=== PATIENT | female | born 1965 | race Caucasian/White ===

== ENCOUNTER → 2019-07-13 07:47 | Outpatient (BNVA) | payer MEDICARE, MEDICAID, SELFPAY | PROVIDERS: Family Provider Family Medicine; Visit Provider Nurse Practitioner | DX: F20.89 Other schizophrenia (principal); F70 Mild intellectual disabilities | CPT/HCPCS: 99213 ==

== ENCOUNTER → 2020-01-21 08:41 | Outpatient (BNVA) | payer MEDICARE, MEDICAID, SELFPAY | PROVIDERS: Family Provider Family Medicine; Visit Provider Nurse Practitioner | DX: F20.89 Other schizophrenia (principal); F70 Mild intellectual disabilities | CPT/HCPCS: 99214 ==

== ENCOUNTER → 2020-04-22 09:06 | Outpatient (BNVA) | payer MEDICARE, MEDICAID, SELFPAY | PROVIDERS: Family Provider Family Medicine; Visit Provider Nurse Practitioner | DX: F70 Mild intellectual disabilities (principal); F20.89 Other schizophrenia; Z79.899 Other long term (current) drug therapy | CPT/HCPCS: 99214 ==

== ENCOUNTER → 2020-10-14 09:49 | Outpatient (BNVA) | payer MEDICARE, MEDICAID, SELFPAY | PROVIDERS: Family Provider Family Medicine; Visit Provider Nurse Practitioner | DX: F20.89 Other schizophrenia (principal); F70 Mild intellectual disabilities; Z79.899 Other long term (current) drug therapy | CPT/HCPCS: 80061; 83036; 99214 ==

== ENCOUNTER → 2021-04-13 10:16 | Outpatient (BNVA) | payer MEDICARE, MEDICAID, SELFPAY | PROVIDERS: Family Provider Family Medicine; Visit Provider Nurse Practitioner | DX: F20.89 Other schizophrenia (principal); F70 Mild intellectual disabilities | CPT/HCPCS: 99214 ==

== ENCOUNTER → 2021-07-13 09:26 | Outpatient (BNVA) | payer MEDICARE, MEDICAID, SELFPAY | PROVIDERS: Family Provider Family Medicine; Visit Provider Nurse Practitioner | DX: F20.89 Other schizophrenia (principal); F70 Mild intellectual disabilities | CPT/HCPCS: 99214 ==

== ENCOUNTER → 2021-12-15 11:09 | Outpatient (BNVA) | payer MEDICARE, MEDICAID, OTHER, SELFPAY | PROVIDERS: Family Provider Family Medicine; Visit Provider Nurse Practitioner | DX: Z79.899 Other long term (current) drug therapy (principal); F70 Mild intellectual disabilities; F20.89 Other schizophrenia | CPT/HCPCS: 80061; 83036 ==

== ENCOUNTER 2022-01-17 14:38 | Outpatient (CLI) | payer MEDICARE, MEDICAID, SELFPAY ==
--- NOTE | 2022-01-17 14:52 | MM_ITS ---
WS: [id number] Bilateral screening 3D tomosynthesis digital mammogram, 01/17/2022 Clinical Data: SCREENING Comparison: 09/06/2020, 09/02/2019, 05/29/2018, 04/11/2017, 04/05/2016, 11/09/2014, 10/20/2013, 09/23/2012, 09/18, 09/02/2009. 09/16/2007. Findings: The breast parenchymal pattern shows ingenious density. No spiculated masses or clustered calcificati ons are seen. There are no secondary signs of carcinoma. There are benign nodules in the lateral aspe ct of the left breast which have not changed. There are lymph nodes in both axilla. MM/[id number] Impression: 1. Negative bilateral mammogram unchanged. 2. Recommend annual screening mammograms. BIRADS: 2-Benign FOLLOW UP: 1 Year Follow-up The CAD weight yardage checker was used.
== END 2022-01-17 14:39 | disposition home or self-care (01) ==
LOC: RAD 14:40
PROVIDERS: PCP Nurse Practitioner Family; Visit Provider Nurse Practitioner Family
DX: Z12.31 Encounter for screening mammogram for malignant neoplasm of breast (principal)
CPT/HCPCS: 77063; 77067

== ENCOUNTER → 2022-11-28 13:53 | Outpatient (BNVA) | payer MEDICARE, MEDICAID, SELFPAY | PROVIDERS: PCP Family Medicine; Visit Provider Podiatrist Foot & Ankle Surgery | DX: M72.2 Plantar fascial fibromatosis | CPT/HCPCS: 77077; 99203 ==

== ENCOUNTER → 2022-12-19 10:27 | Outpatient (BNVA) | payer MEDICARE, OTHER, SELFPAY | PROVIDERS: PCP Family Medicine; Visit Provider Nurse Practitioner | DX: Z79.899 Other long term (current) drug therapy (principal); F20.89 Other schizophrenia; F70 Mild intellectual disabilities | CPT/HCPCS: 80061; 83036 ==

== ENCOUNTER 2023-01-30 08:21 | Outpatient (CLI) | payer MEDICARE, MEDICAID, SELFPAY ==
--- NOTE | 2023-01-30 08:47 | MM_ITS ---
WS: [id number] BILATERAL SCREENING DIGITAL TOMOSYNTHESIS MAMMOGRAM WITH CAD HISTORY: SCREENING COMPARISON: 01/17/2022 and 09/06/2020 and 09/02/2019 Bilateral CC and MLO views with tomosynthesis and synthetic mammography submitted. Computer aided det ection analyzed. Breast composition: The breasts are heterogeneously dense, which may obscure small masses. No suspici ous masses, microcalcifications or architectural distortion. Bilateral asymmetries and calcifications are stable over multiple prior years. IMPRESSION: MM/[id number] BI-RADS: 2-Benign FOLLOW UP: 1 Year Follow-up
== END 2023-01-30 08:22 | disposition home or self-care (01) ==
LOC: RAD 08:21
PROVIDERS: PCP Family Medicine; Visit Provider Family Medicine
DX: M72.2 Plantar fascial fibromatosis (principal); Z12.31 Encounter for screening mammogram for malignant neoplasm of breast; M79.672 Pain in left foot; M79.671 Pain in right foot
CPT/HCPCS: 77063; 77067; 99213

== ENCOUNTER → 2023-10-09 11:49 | Outpatient (BNVA) | payer MEDICARE, OTHER, SELFPAY | PROVIDERS: PCP Family Medicine; Visit Provider Nurse Practitioner | DX: Z79.899 Other long term (current) drug therapy (principal) | CPT/HCPCS: 80061; 83036 ==

== ENCOUNTER 2024-05-18 10:13 | Emergency (ER) | payer MEDICARE, MEDICAID, SELFPAY ==
[2024-05-18 10:25] VITALS: BP 116/71; PULSE 77; RESP 18; TEMP 36.7; O2SAT 93; BMI 52.1
--- NOTE | 2024-05-18 12:07 | W.ED.EXTPRO ---
HPI - Extremity Problem General: Chief complaint: Extremity Problem,Nontraumatic Stated complaint: left arm pain Time Seen by Provider: 05/18/24 11:20 Source: patient and EMS Mode of arrival: wheelchair Limitations: no limitations History of Present Illness: Patient is a 59-year-old female who presents today complaining of numbness to the fingers of her left hand. Patient reports that she woke up this morning with some pain to her left elbow-no known injury/trauma-and that her fingers felt numb. She has not noticed any weakness. No neck pain. Patient does not note anything making her symptoms better or worse. She states that the numbness/tingling to the finger has now mostly resolved and she no longer has any elbow pain. MD Complaint: other (left fingers numb and tingling ) Onset (ago): hour(s) Pain Consistency: now resolved Location: left and upper extremity Radiation: none Relieving factors: nothing Exacerbating factors: nothing Associated symptoms: Reports no associated symptoms; Deny chest pain or fever(s) Related Data Home Medications ?Medication ?Instructions ?Recorded ?Confirmed cholecalciferol (vitamin D3) 50 50 mcg PO DAILY 07/13/19 02/26/24 mcg (2,000 unit) capsule lovastatin 40 mg tablet 40 mg PO DAILY 07/13/19 02/26/24 cetirizine 10 mg tablet ea PO 11/28/22 02/26/24 nystatin 100,000 unit/gram topical g topical 11/28/22 02/26/24 cream omeprazole 40 mg capsule,delayed ea PO 11/28/22 02/26/24 release triamcinolone acetonide 0.1 % g topical 11/28/22 02/26/24 topical cream Previous Rx's ?Medication ?Instructions ?Recorded propranolol 20 mg tablet 20 mg PO BID #180 tabs 01/03/24 aripiprazole 10 mg tablet (Abilify) 10 mg PO DAILY #90 tabs 02/26/24 prazosin 2 mg capsule 2 mg PO .HS #90 caps 02/26/24 venlafaxine 150 mg 150 mg PO DAILY #90 caps 02/26/24 capsule,extended release 24 hr Allergies Allergy/AdvReac Type Severity Reaction Status Date / Time menthol (From MoisésCurverider Hot) Allergy Rash Verified 05/18/24 10:28 methyl salicylate (From Icy Allergy Rash Verified 05/18/24 10:28 Hot) Penicillins Allergy Diarrhea, Verified 05/18/24 10:28 nausea, vomiting Sulfa (Sulfonamide Allergy Rash Verified 05/18/24 10:28 Antibiotics) Review of Systems Const: Denies: fever(s) Card: Denies: chest pain Resp: Denies: dyspnea GI: Denies: nausea or vomiting Musc: Reports: joint pain (L elbow this AM-resolved now); Denies: neck pain, back pain, extremity pain, extremity swelling, joint swelling, joint redness, joint warmth, joint stiffness, limited range of motion, muscle cramps or muscle weakness Neuro: Reports: numbness in extremities (L fingers-resolved now); Denies: headache(s) or weakness in extremities PFSH ED PFSH: Medical History Depression On combination antipsychotic drug therapy Psychiatric care Other schizophrenia Mild intellectual disabilities Family History Sister Thyroid disease Denies family history of Colon cancer Ovarian cancer Diabetes Clotting disorder Heart disease Hyperlipidemia Breast cancer Anesthesia complication Bleeding disorder Hypertension Uterine cancer Stroke Social History Smoking and tobacco/nicotine status: never used tobacco/nicotine Alcohol intake: never Substance/Drug Use: never Physical Exam Const: COMMON NORMALS: no acute distress, no limitations, alert and well nourished GENERAL APPEARANCE: cooperative NUTRITIONAL APPEARANCE: obese HENMT: FACE & SINUS: normal facial exam and face symmetric Neck/C-Spine: COMMON NORMALS: full ROM GENERAL: Yes normal visual inspection CERVICAL SPINE: No pain with cervical ROM, No Cervical spine tenderness and No Paracervical muscle tenderness Resp: COMMON NORMALS: normal respiratory effort and clear to auscultation bilaterally AUSCULTATION: clear to auscultation bilaterally Cardio: COMMON NORMALS: regular rate and regular rhythm RATE: regular rate RHYTHM: regular rhythm Back/Pelvis: COMMON NORMALS: thoracic and lumbar spine normal to inspection and no thoracic nor lumbar tenderness Extremity: COMMON NORMALS: normal to inspection, full ROM, capillary refill normal, no joint enlargement, no clubbing, cyanosis or edema, no calf tenderness and no pedal edema GENERAL: Yes normal exam except as noted OTHER: pt has full painless ROM of neck, L shoulder, L elbow, L wrist; L UE with no edema or color/temp changes; sensation is intact throughout extremity even to digits-she states her numbness has resolved; normal motor strength to extremity Neuro: COMMON NORMALS: moves all extremities, no focal motor deficits and no sensory deficits noted SENSORIUM/ORIENTATION: Yes alert Course Vital Signs: Vital signs: Vital Signs Temperature 98.1 F 05/18/24 10:25 Pulse Rate 77 05/18/24 10:25 Respiratory Rate 18 05/18/24 10:25 Blood Pressure 116/71 05/18/24 10:25 Pulse Oximetry 93 05/18/24 10:25 Oxygen Delivery Me thod Room Air 05/18/24 10:25 MDM - Extremity (Nontraumatic) Medical Decision Making Patient is a 59-year-old female who presented to the ED today complaining of paresthesias involving her left fingers that she noticed when she awoke from sleep this morning. She was also having some pain at that time around her left elbow. At time of my initial examination of patient, she tells both of these have subsided. She does not have any acute neurologic deficits during exam. NIH 0. I do not feel any formable emergent lab work or imaging would ultimately change consultant will be beneficial. She does have PCP appointment scheduled for later this month. She can follow-up with primary care. Return to ED precautions discussed. Suspect paresthesias were most likely due to elbow positioning while asleep. Medical Records I reviewed the patient's medical records. No radiology studies performed this visit Discharge Plan Discharge Patient Disposition: Home Clinical Impression: Paresthesias in left hand Condition: Stable Prescriptions: No Action lovastatin 40 mg tablet 40 mg PO DAILY cholecalciferol (vitamin D3) 50 mcg (2,000 unit) capsule 50 mcg PO DAILY triamcinolone acetonide 0.1 % cream topical nystatin 100,000 unit/gram cream topical omeprazole 40 mg capsule,delayed release(DR/EC) PO cetirizine 10 mg tablet PO prazosin 2 mg capsule 2 mg PO .HS Qty: 90 1RF venlafaxine 150 mg capsule,extended release 24hr 150 mg PO DAILY Qty: 90 1RF aripiprazole [Abilify] 10 mg tablet 10 mg PO DAILY Qty: 90 1RF propranolol 20 mg tablet 20 mg PO BID Qty: 180 0RF Discharge Orders: Discharge ED (Routine); Ordered 05/18/24 Ordered By: Meeta Huff Referrals: Sobeida Painter MD [Primary Care Provider] - Activity Restrictions/Additional Instructions: As we discussed, at time of arrival to the emergency department you are already having improving symptoms. No acute neurologic deficits noted. Recommend he follow-up with your primary care provider later this month as you already have a scheduled appointment. You need to return to the emergency department for onset of arm or leg weakness, continued loss of sensation, facial drooping, slurred speech, trouble ambulating, altered mental status, or any other concerns you may have. Print Language: Hungarian Coding Level of Care Code ED Hammer Repairer for Madeleine Nina
[2024-05-18 12:56] VITALS: BP 117/75; PULSE 81; O2SAT 93
== END 2024-05-18 12:57 | disposition home or self-care (01) ==
PROVIDERS: Emergency Provider Physician Assistant; PCP Family Medicine
DX: R20.2 Paresthesia of skin (principal)
CPT/HCPCS: 99283

== ENCOUNTER → 2024-05-27 11:24 | Outpatient (BNVA) | payer MEDICARE, OTHER, SELFPAY | PROVIDERS: PCP Family Medicine; Visit Provider Nurse Practitioner | DX: F20.89 Other schizophrenia (principal); F70 Mild intellectual disabilities; Z79.899 Other long term (current) drug therapy | CPT/HCPCS: 80061; 83036 ==

== ENCOUNTER 2024-08-04 17:34 | Inpatient (IN) | payer OTHER, MEDICAID, SELFPAY ==
--- OUTSIDE RECORDS SUMMARY | 2024-07-30 11:44 | XMS_ITS | Encounter Summary ---
Author Organization [facility] Address [address] [place] [address] Care Team Providers Care Electrical Mechanic Name Role Phone Henrik Kuo MD Primary Care Provider [phone] Reason for Referral * Radiology Services (Routine) - Pending Review Specialty Diagnoses / Procedures Referred By [place] Referred To Contact Radiology Diagnoses Visit for screening mammogram Procedures MAMMO 3D ANGELIQUE SCREEN BILAT W OR WO CAD CHG SCREENING MAMMOGRAPHY BI 2-VIEW BREAST INC CAD CHG SCREENING DIGITAL BREAST TOMOSYNTHESIS BI Marta Amaro FNP [address] [place] [address] Phone: tel: fax: [facility] [address] [place] [address] Phone: tel: fax: Referral ID Status Reason Start Date Expiration Date V isits Requested Visits Authorized [id number] Pending Review 01/23/2024 02/22/2025 1 1 Reason for Visit * Radiology Services (Routine) - Pending Review Specialty Diagnoses / Procedures Referred By [place] Referred To Contact Radiology Diagnoses Visit for screening mammogram Procedures MAMMO 3D ANGELIQUE SCREEN BILAT W OR WO CAD CHG SCREENING MAMMOGRAPHY BI 2-VIEW BREAST INC CAD CHG SCREENING DIGITAL BREAST TOMOSYNTHESIS BI Marta Amaro FNP [address] [place] [address] Phone: tel: fax: [facility] [address] [place] [address] Phone: tel: fax: Referral ID Status Reason Start Date Expiration Date V isits Requested Visits Authorized [id number] Pending Review 01/23/2024 02/22/2025 1 1 Encounter Details Date Type Department Care Team (Latest Contact Info) Description 07/30/2024 11:44 AM CDT - 07/30/2024 11:59 PM CDT Hospital Encounter [facility] [address] [place] [phone] Marta Amaro, MANAGER ADVERTISING [address] [place] [phone] Discharge Disposition: Home or Self Care Social History Tobacco Use Types Packs/Day Years Used Date Smoking Tobacco: Never Smokeless Tobacco: Never Alcohol Use Standard Drinks/Week Comments No 0 (1 standard drink = 0.6 oz pur e alcohol) Financial Resource Strain Answer Date R ecorded How hard is it for you to pa y for the very basics like food, housing, medical care, and heating? Patient declined 04/06/2022 Food Insecurity Answer Date Recorded In the past 12 months, have you worried that your food would run out before you had money to buy more? Patient declined 2022 In the past 12 months, did y ou run out of food and didn't have money to buy more? Patient declined 04/06/2022 Transportation Needs Answer Date Record ed In the past 12 months, has l ack of transportation kept you from medical appointments or from getting medications? Patient declined 04/06/2022 Lack of Transportation (Non-Medical) Not on file 04/06/2022 Feeling Safe Answer Date Recorded Are you in a relationship wi th someone who hurts you emotionally and/or physically? No 06/13/2024 Comments No Sex and Gender Information Value Date Recorded Sex Assigned at Not on file Legal Sex Female 5:09 PM FACILITY ENGINEER Gender Identity Not on file Sexual Orientation Not on file documented as of this encounter Medications at Time of Discharge tolterodine (DETROL LA) 2 mg Extended Release 24 hour capsuleIndications: Urinary incontinence, unspecified type Take 1 Capsule (2 mg) by mouth daily. 100 Capsule 1 5 lidocaine (LIDODERM) 5 % Adhesive Patch, MedicatedIndication s:Arthritis of right knee Apply 2 Patches to affected area every 24 hours. 30 Patch 2 5 diclofenac sodium (VOLTAREN) 1 % gelIndications:Arth ritis of right knee Apply 2 Grams to affected area 4 times daily. 100 Gram 2 5 acetaminophen (TYLENOL) 325 mg tabletIndications:A rthritis of right knee Take 2 Tablets (650 mg) by mouth 3 times daily as needed for Pain, Moderate. 360 Tablet 2 5 methenamine hippurate (HIPREX) 1 gram Tablet 5 omeprazole (PriLOSEC) 40 mg Capsule, Delayed Release(E.C.)Indica tions:Gastroesophag eal reflux disease, unspecified whether esophagitis present Take 1 Capsule (40 mg) by mouth daily. 100 Capsule 3 5 ARIPiprazole (ABILIFY) 10 mg tablet Take 1 Tablet by mouth daily. 5 tirzepatide, weight loss, (Zepbound) 2.5 mg/0.5 mL Pen InjectorIndications :Morbid obesity with BMI of 50.0-59.9, adult ([facility]) Inject 2.5 mg by subcutaneous injection every 7 days. 2 mL 5 ARIPiprazole (ABILIFY) 5 mg tablet Take 5 mg by mouth daily. prazosin (MINIPRESS) 2 mg capsule TAKE 1 CAPSULE BY MOUTH ONCE EVERY NIGHT AT BEDTIME 4 atorvastatin (LIPITOR) 40 mg tabletIndications:E ncounter for wellness examination,Hyperli pidemia, unspecified hyperlipidemia type,Morbid obesity with body mass index of 40.0-49.9 ([facility]) Take 1 Tablet (40 mg) by mouth daily with supper. 100 Tablet 2 4 cetirizine (ZyrTEC) 10 mg tabletIndications:R niki and nonspecific skin eruption take 1 tablet by mouth every day 100 Tablet 3 4 clotrimazole-betame thasone (LOTRISONE) 1-0.05 % Cream Apply to affected area 2 times daily. To the vulva and groin as needed for itching 45 Gram 3 4 nystatin (MYCOSTATIN) 100,000 unit/gram CreamIndications:Ca ndida infection Apply to affected area 2 times daily. 15 Gram 1 3 triamcinolone acetonide (KENALOG) 0.1 % CreamIndications:Ra sh and nonspecific skin eruption Apply to affected area 2 times daily. 80 Gram 3 3 nystatin (NYSTOP) 100,000 unit/gram powderIndications:Y east infection Apply to affected area 2 times daily. 60 Gram 3 3 hydrOXYzine HCL (ATARAX) 25 mg tabletIndications:I tching Take 1 Tablet (25 mg) by mouth 3 times daily as needed for Itching. 30 Tablet 1 2 propranoloL (INDERAL) 20 mg tablet 1 polyethylene glycol (MIRALAX) 17 gram Powder in PacketIndications:C onstipation, unspecified constipation type Take 1 Packet (17 Grams) by mouth 2 times daily as needed for Constipation. 6 Packet 1 0 venlafaxine (EFFEXOR XR) 150 mg Extended Release 24 hour capsule Take 150 mg by mouth daily Takes with 75 mg daily . 9 Cholecalciferol, Vitamin D3, 50 mcg (2,000 unit) Capsule Take 1 Capsule by mouth daily at bedtime. 7 documented as of this encounter Plan of Treatment Upcoming Encounters Date Type Department Care Team (Late st Contact Info) Description 01/22/2025 10:00 AM FACILITY ENGINEER Office Visit [facility] [address] [place] [address] [place] [phone] Marta Amaro FNP [address] [facility] [place] [address] documented as of this encounter Procedures Procedure Name Priority Date/Time Associated Diagnosis Comments MAMMO 3D ANGELIQUE SCREEN BILAT W OR WO CAD Routine 07/30/2024 12:02 PM CDT Visit for screening mammogram documented in this encounter Results * MAMMO 3D ANGELIQUE SCREEN BILAT W OR WO CAD (07/30/2024 12:02 PM CDT) Anatomical Region Laterality Modality Breast Bilateral Mammography, Dig ital Radiography Impressions 07/31/2024 8:44 AM CDT : No mammographic evidence of malignancy. BI-RADS ASSESSMENT: 1 - Negative RECOMMENDATION: Routine annual screening mammography. Narrative 07/31/2024 8:44 AM CDT EXAM: MAMMO SCRN BILAT 3D ANGELIQUE W OR WO CAD INDICATION: Screening COMPARISON: 07/09/2023 MAMMO 3D ANGELIQUE SCREEN BILAT W OR WO CAD, 01/30/2023 MAMMO PRIOR STUDY, 01/17/2022 MAMMO PRIOR STUDY, 09/06/2020 MAMMO SCREEN BILAT W OR WO CAD, 09/02/2019 MAMMO SCREEN BILAT W OR WO CAD, 05/29/2018 MAMMO SCREEN BILAT W OR WO CAD, and 04/11/2017 MAMMO SCREEN BILAT W OR WO CAD BREAST COMPOSITION: The breasts are heterogeneously dense, which may obscure small masses. FINDINGS: RIGHT BREAST: There are no suspicious masses, calcifications, or areas of architectural distortion. LEFT BREAST: There are no suspicious masses, calcifications, or areas of architectural distortion. Marta Amaro MANAGER ADVERTISING MAMMO ORDERABLES Final Result documented in this encounter Visit Diagnoses Diagnosis Visit for screening mammogram Other screening mammogram documented in this encounter Additional Health Concerns Assessment Noted Time PHQ-9 Depression Total Score: 3 07/04/19 25 9:36 AM CDT documented as of this encounter Care Teams Electrical Mechanic Relationship Specialty Start Date End Date Henrik Kuo MD [address] [address] PCP - General Family Practice 01/23/21 documented as of this encounter
[2024-08-04 17:39] VITALS: BP 153/105; PULSE 106; RESP 18; TEMP 36.8; O2SAT 96; BMI 54.5
--- NOTE | 2024-08-04 17:39 | XRR_ITS ---
PROCEDURE INFORMATION: Exam: XR Left Foot Exam date and time: 08/04/2024 5:40 PM Age: 59 years old Clinical indication: Injury or trauma; Fall; Swelling (edema); Ankle and foot; Left; Prior surgery; Surgery date: 6+ months; Surgery type: Ankle repair TECHNIQUE: Imaging protocol: Radiologic exam of the left foot. Views: 3 or more views. COMPARISON: [place] [id number] [place]TH 11/28/2022 1:58 PM FINDINGS: Bones/joints: Comminuted intra-articular fracture involving the 2nd metatarsal base. Concerning for Lisfranc injury. Possible intra-articular fracture components of the 3rd metatarsal bone as well as the 1st metatarsal bone. There is widening of the 1st and 2nd metatarsal space. No dislocation. Plantar and posterior calcaneal spurring. Soft tissues: Diffuse soft tissue swelling. XR/XR foot LT min 3V* [id number] IMPRESSION: As above.
--- NOTE | 2024-08-04 17:39 | XRR_ITS ---
PROCEDURE INFORMATION: Exam: XR Left Ankle Exam date and time: 08/04/2024 5:40 PM Age: 59 years old Clinical indication: Pain; Ankle and foot; Left; Prior surgery; Surgery date: 6+ months; Surgery type: Ankle repair; Additional info: Injury TECHNIQUE: Imaging protocol: Radiologic exam of the left ankle. Views: 3 or more views. COMPARISON: [place] [id number] [place] 11/28/2022 1:58 PM FINDINGS: Bones/joints: Please see same-day foot radiograph for further findings regarding the midfoot. No definite acute fracture involving the hindfoot structures. Postsurgical changes related to ORIF of the distal fibula and tibia. Ankle mortise is congruent. The talar dome is intact. Posterior and plantar calcaneal spurring. No ankle joint effusion. Soft tissues: Normal. XR/XR ankle LT min 3V* [id number] IMPRESSION: As above.
--- NOTE | 2024-08-04 17:39 | XRR_ITS ---
PROCEDURE INFORMATION: Exam: XR Left Hand Exam date and time: 08/04/2024 5:40 PM Age: 59 years old Clinical indication: Injury or trauma; Fall; Swelling (edema); Hand; Left TECHNIQUE: Imaging protocol: Radiologic exam of the left hand. Views: 3 or more views. COMPARISON: No relevant prior studies available. FINDINGS: Bones/joints: No acute fracture or traumatic malalignment. Scattered interphalangeal joint degenerative changes. Soft tissues: Normal. XR/XR hand LT min 3V* [id number] IMPRESSION: As above.
--- NOTE | 2024-08-04 17:45 | W.ED.FALL ---
HPI - Fall General: Chief Complaint: Fall Stated Complaint: Fall Time Seen by Provider: 08/04/24 17:36 Source: patient and EMS Mode of arrival: EMS Limitations: no limitations History of Present Illness: 59-year-old female is here with EMS after a fall. States she fell in a [place] injured her left ring finger and left foot and ankle states she has pain she rates a 5 out of 10 denies any other injuries denies any hip or knee pain. She denies hitting her head. Associated symptoms-after fall: Denies abdominal pain, chest pain, headache(s) or neck pain Related Data Home Medications ?Medication ?Instructions ?Recorded ?Confirmed cholecalciferol (vitamin D3) 50 50 mcg PO DAILY 07/13/19 05/27/24 mcg (2,000 unit) capsule lovastatin 40 mg tablet 40 mg PO DAILY 07/13/19 05/27/24 cetirizine 10 mg tablet ea PO 11/28/22 05/27/24 nystatin 100,000 unit/gram topical g topical 11/28/22 05/27/24 cream omeprazole 40 mg capsule,delayed ea PO 11/28/22 05/27/24 release triamcinolone acetonide 0.1 % g topical 11/28/22 05/27/24 topical cream Previous Rx's ?Medication ?Instructions ?Recorded aripiprazole 10 mg tablet (Abilify) 10 mg PO DAILY #90 tabs 02/26/24 prazosin 2 mg capsule 2 mg PO .HS #90 caps 02/26/24 venlafaxine 150 mg 150 mg PO DAILY #90 caps 02/26/24 capsule,extended release 24 hr propranolol 20 mg tablet 20 mg PO BID #180 tabs 06/24/24 Allergies Allergy/AdvReac Type Severity Reaction Status Date / Time menthol (From Icy Hot) Allergy Rash Verified 05/27/24 10:59 methyl salicylate (From Icy Allergy Rash Verified 05/27/24 10:59 Hot) Penicillins Allergy Diarrhea, Verified 05/27/24 10:59 nausea, vomiting Sulfa (Sulfonamide Allergy Rash Verified 05/27/24 10:59 Antibiotics) Review of Systems Const: Denies: fever(s), chills, body aches or change in appetite ENMT: Denies: throat pain or dental pain Card: Denies: chest pain Resp: Denies: dyspnea GI: Denies: abdominal pain, nausea, vomiting or diarrhea Musc: Reports: extremity pain; Denies: neck pain or back pain Skin/Breast: Denies: rash Neuro: Denies: headache(s) PFSH ED PFSH: Medical History Depression On combination antipsychotic drug therapy Psychiatric care Other schizophrenia Mild intellectual disabilities Family History Sister Thyroid disease Denies family history of Colon cancer Ovarian cancer Diabetes Clotting disorder Heart disease Hyperlipidemia Breast cancer Anesthesia complication Bleeding disorder Hypertension Uterine cancer Stroke Social History Smoking and tobacco/nicotine status: never used tobacco/nicotine Alcohol intake: never Substance/Drug Use: never Physical Exam Const: COMMON NORMALS: no acute distress, patient oriented x3 and healthy appearing HENMT: COMMON NORMALS: normocephalic and atraumatic HEAD & SCALP: normocephalic and atraumatic Eye: COMMON NORMALS: conjunctivae normal CONJUNCTIVA: Yes conjunctivae normal Neck/C-Spine: COMMON NORMALS: full ROM and supple Chest: COMMONS NORMALS: normal inspection of the chest and normal palpation of entire chest wall Resp: COMMON NORMALS: normal respiratory effort, No retractions, No use of accessory muscles and clear to auscultation bilaterally AUSCULTATION: clear to auscultation bilaterally Cardio: COMMON NORMALS: regular rate, regular rhythm and No murmurs present (Cardio) RATE: regular rate RHYTHM: regular rhythm GI: COMMON NORMALS: Normal to inspection, nondistended, normoactive bowel sounds present, Soft to palpation, non-tender and no masses PALPATION: Yes Soft to palpation Extremity: COMMON NORMALS: full ROM NARRATIVE EXTREMITY EXAM: Tenderness and swelling noted left foot some slight tenderness to left ring finger. Neuro: COMMON NORMALS: patient oriented x3, moves all extremities and no focal motor deficits Psych: COMMON NORMALS: mental status grossly normal, Normal thought process present and cooperative THOUGHT PROCESS: Normal thought process present Skin: COMMON NORMALS: no rashes or lesions noted and no wounds GENERAL SKIN EXAM: no rashes or lesions noted Course Vital Signs: Vital signs: Vital Signs Temperature 98.2 F 08/04/24 17:39 Pulse Rate 106 H 08/04/24 17:39 Respiratory Rate 18 08/04/24 17:39 Blood Pressure 153/105 08/04/24 17:39 Pulse Oximetry 96 08/04/24 17:39 Oxygen Delivery Me thod Room Air 08/04/24 17:39 MDM - Fall Medical Decision Making Patient presents for Lisfranc fracture of her left foot patient lives home alone is not able to take care of herself I spoke to business performance specialist Long hospitalist will admit this time as she likely needs prison placement and surgery in the future Medical Records I reviewed the patient's medical records. Lab Data I reviewed the patient's lab results. 08/04/24 18:41 08/04/24 18:41 Radiology Impressions Ankle X-Ray 08/04/24 17:39 IMPRESSION: As above. Foot X-Ray 08/04/24 17:39 IMPRESSION: As above. Hand X-Ray 08/04/24 17:39 IMPRESSION: As above. Laboratory Results WBC 13.40 10^3/uL (3.29-11.43) H 08/04/24 18:41 RBC 4.62 10^6/uL (3.85-5.65) 08/04/24 18:41 Hgb 13.70 g/dL (11.27-16.99) 08/04/24 18:41 Hct 42.6 % (36-47) 08/04/24 18:41 MCV 92.2 fl (85-98) 08/04/24 18:41 MCH 29.7 pg (27-33) 08/04/24 18:41 MCHC 32.2 g/dL (30-55) 08/04/24 18:41 RDW 12.3 % (12.1-15.1) 08/04/24 18:41 Plt Count 343 10^3/cmm (157-399) 08/04/24 18:41 MPV 8.6 fL (7.4-10.4) 08/04/24 18:41 Neut % (Auto) 80.6 % 08/04/24 18:41 Lymph % (Auto) 11.8 % 08/04/24 18:41 [place] % (Auto) 6.3 % 08/04/24 18:41 Eos % (Auto) 0.7 % 08/04/24 18:41 Baso % (Auto) 0.2 % 08/04/24 18:41 Neut # (Auto) 10.80 10^3/uL (1.8-7.7) H 08/04/24 18:41 Lymph # (Auto) 1.6 10^3/uL (0.8-4.8) 08/04/24 18:41 [place] # (Auto) 0.9 10^3/uL (0.2-0.9) 08/04/24 18:41 Eos # (Auto) 0.1 10^3/uL (0.0-0.8) 08/04/24 18:41 Baso # (Auto) 0.0 10^3/uL (0.0-0.1) 08/04/24 18:41 Nucleated RBC % (auto) 0 % 08/04/24 18:41 Nucleated RBCs # 0.0 /100WBC 08/04/24 18:41 PT 12.70 SECONDS (12.1-14.9) 08/04/24 18:41 INR 0.89 (0.8-1.2) 08/04/24 18:41 Sodium 139 mmol/L (136-145) 08/04/24 18:41 Potassium 4.2 mmol/L (3.5-5.1) 08/04/24 18:41 Chloride 101 mmol/L (98-107) 08/04/24 18:41 Carbon Dioxide 25 mmol/L (22-29) 08/04/24 18:41 Anion Gap 17.2 (5-19) 08/04/24 18:41 BUN 16 mg/dL (8-23) 08/04/24 18:41 Creatinine 0.7 mg/dL (0.5-0.9) 08/04/24 18:41 GFR Calculation 85.4 mL/min (90-130) L 08/04/24 18:41 Glucose 95 mg/dL (65-115) 08/04/24 18:41 Calculated Osmolality 289 mOsm/kg (285-295) 08/04/24 18:41 Calcium 10.1 mg/dL (8.5-10.5) 08/04/24 18:41 Total Bilirubin 0.7 mg/dL (0.15-1.2) 08/04/24 18:41 AST 23 U/L (0-32) 08/04/24 18:41 ALT 21 U/L (0-33) 08/04/24 18:41 Alkaline Phosphatase 120 U/L (35-105) H 08/04/24 18:41 Total Protein 7.7 g/dL (6.6-8.7) 08/04/24 18:41 Albumin 4.1 g/dL (3.5-5.2) 08/04/24 18:41 Globulin 3.6 g/dL (1.3-4.6) 08/04/24 18:41 All radiology interpretation(s) finalized by discharge Discharge Plan Discharge Patient Disposition: Admitted As Inpatient Clinical Impression: Lisfranc fracture Condition: Stable Coding Level of Care Code ED Mine Equipment Design Engineer for Madeleine Nina
--- OUTSIDE RECORDS SUMMARY | 2024-08-04 18:07 | XMS_ITS | Encounter Summary ---
Author Organization [facility] Address [address] [place] [address] Care Team Providers Care Innovation Manager Name Role Phone Henrik Kuo MD Primary Care Provider [phone] Reason for Visit * Reason Comments Provider Call Encounter Details Date Type Department Care Team ([facility] Contact Info) Description 06/08/2024 Telephone [facility] [place] [address] [place] [address] [place] [address] Marta Amaro FNP [address] [facility] [place] [address] Provider Call Social History Tobacco Use Types Packs/Day Years [...] of Transportation (Non-Medical) Not on file 04/06/2022 Comments No Sex and Gender Information Value Date Recorded Sex Assigned at Not on file Legal Sex Female 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 Called patient and let her know. Sierra A Rendaynecelso, 06/08/2024 1:41 PM * Telephone Encounter - Jamilah Morton - 06/08/2024 10:46 AM CDT Copied from [facility] #[id number]. Topic: Diylwzdb-Ry-Pmbaxiot Call >> Jun 08, 2024 10:42 AM Jamilah Vargas wrote: Caller is requesting to speak with Clinical Care Team. Caller Name: Hilary ([facility]) Callback Number: [phone] Clinician Type: Other healthcare professional not listed above Call Notes: Patient received request for colonoscopy and does not have anyone that can go with her at this time so wanting to know if color sebastian would be an option to do first before doing colonoscopy Is this addressing an immediate patient care need? No documented in this encounter Plan of Treatment Upcoming Encounters Date Type Department Care Team (Late st Contact Info) Description 01/22/2025 10:00 AM AIRCONDITIONING PLANT OPERATOR Office Visit [facility] [place] [address] [facility] [address] [place] [address], [place] [phone] Marta Amaro FNP [address] [place] [phone] documented as of this encounter Visit Diagnoses Not on filedocumented in this encounter Care Teams Innovation Manager Relationship Specialty Start Date End Date Henrik Kuo MD [address] [phone] PCP - General Family Practice 01/23/21 documented as of this encounter
--- OUTSIDE RECORDS SUMMARY | 2024-08-04 18:07 | XMS_ITS | Encounter Summary ---
Author Organization [facility] Address 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 Advised it wasn't a good idea to do a Hospital Follow Up and her Medicare Wellness on the same day. Patient expressed understanding. Sierra Bermudez, 06/18/2024 11:07 AM * Telephone Encounter - Jennifer Zamudio - 06/17/2024 2:47 PM CDT Copied from [facility] #[id number]. Topic: Patient or Caregiver Communication Request >> June 17, 2024 2:42 PM Jennifer Covington wrote: Patient or Caregiver requesting that a message be sent to Care Team Caller: Glendy Salas Patient/Caregiver Callback Number: [phone] Call Notes: Patient is wondering if she can do a hospital follow up that is scheduled for 06/26/24 and reschedule this to be on the same day as her wellness visit scheduled for 07/03/24. I advised that I would have to send a message to see if this was possible documented in this encounter Plan of Treatment Upcoming Encounters Date Type Department Care Team (Late st Contact Info) Description 01/22/2025 10:00 AM NEW ACCOUNT INTERVIEWER Office Visit [facility] [place] [address] [place] [address] Marta Amaro FNP [address] [place] [address] documented as of this encounter Visit Diagnoses Not on filedocumented in this encounter Care Teams Store Associate Relationship Specialty Start Date End Date Henrik Kuo MD [address] [address] PCP - General Family Practice 01/23/21 documented as of this encounter
[2024-08-04] MEDS: HYDROcodone-acetaminophen 5-325 mg Tablet 1 TAB PO (18:08)
--- OUTSIDE RECORDS SUMMARY | 2024-08-04 18:08 | XMS_ITS | Encounter Summary ---
Author Organization [facility] Address [address] [place] [address] Care Team Providers Care Glass Rolling Machine Operator Name Role Phone Henrik Kuo MD Primary Care Provider [phone] Encounter Details Date Type Department Care Team (Late st Contact Info) Description 08/28/2005 Outpatient Historical [facility] Breast [place] [address] [place] [address] Glo Corona MD NO ADDRESS ON FILE Other Sign and Symptom in Breast (Primary Dx) Social History Tobacco Use Types Packs/Day Years Used Date Smoking Tobacco: Never Assessed Comments Unknown Sex and Gender Information Value Date Recorded Sex Assigned at Not on file 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 Gender Identity Not on file Sexual Orientation Not on file documented as of this encounter Plan of Treatment Not on file documented as of this encounter Visit Diagnoses Diagnosis Other sign and symptom in breast- Primary documented in this encounter Additional Health Concerns Infection Onset Date Last Indicated Resolved Time R/O COVID-19 10/09/2019 10/09/2019 10/11/2019 1:00 AM CDT COVID-19 10/09/2019 10/09/2019 11/08/2019 8:08 PM CDT documented as of this encounter Care Teams Glass Rolling Machine Operator Relationship Specialty Start Date End Date Henrik Kuo MD [address] [facility] [address] [place] [address] PCP - General Family Practice 11/26/16 documented as of this encounter
--- OUTSIDE RECORDS SUMMARY | 2024-08-04 18:08 | XMS_ITS | Encounter Summary ---
Author Organization 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 Anatomic Pathology Dept [address] [place] [phone] Patient: MICHAEL BUCHANAN Accn No: [id number] Collected: 07/21/2007 7:50:00 AM DERMATOPATHOLOG Y FINAL REPORT Diagnosis LIPOMA (214.1) (RIGHT FOREARM) Ever Reilly MD (Electronicall y signed by) Verified: 07/24/07 RP /WLS Clinical Information None provided. Specimen Source RIGHT FOREARM Gross Description Received in formalin are two yellow and white fatty tissue fragments with no apparent skin seen, the first fragment measures 1.6 x 1.2 x 0.5 cm. The specimen is sectioned into six pieces and submitted in cassette A1. The second fragment measures 1.0 x 0.7 x 0.5 cm. The specimen is trisected and submitted in cassette A2. *Gross examination performed at [facility] [place] [address] DI RP /WLS Microscopic Description Sections show an ovoid mass of adipose tissue. INTERFACE SYSTEM 07/21/2007 7:50 AM CDT Clifford Payne DO PATHOLOGY/CYTOLOGY ORDERABLES Final Result INTERFACE SYSTEM Refer to clinic/hospital department documented in this encounter Visit Diagnoses Not on filedocumented in this encounter Additional Health Concerns Infection Onset Date Last Indicated Resolved Time R/O COVID-19 10/09/2019 10/09/2019 10/11/2019 1:00 AM CDT COVID-19 10/09/2019 10/09/2019 11/08/2019 8:08 PM CDT documented as of this encounter Care Teams Assessment Analyst Relationship Specialty Start Date End Date Henrik Kuo MD [address] [facility] [address] [place] [phone] PCP - General Family Practice 11/26/16 documented as of this encounter
--- OUTSIDE RECORDS SUMMARY | 2024-08-04 18:08 | XMS_ITS | Encounter Summary ---
Author Organization [facility] Address [address] [facility] [place] [address] Care Team Providers Care Blue Leather Sorter Name Role Phone Henrik Kuo MD Primary Care Provider [phone] Encounter Details Date Type Department Care Team (Latest Contact Info) Description 01/26/2004 Outpatient Historical [facility] Family Medicine- [address] [place] [address] Too Navarrete NP NO ADDRESS ON FILE VAGINITIS NOS (Primary Dx) Social History Tobacco Use Types Packs/Day Years Used Date Smoking Tobacco: Never Assessed Comments Unknown Sex and Gender Information Value Date Recorded Sex Assigned at Not on file Legal 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 Gender Identity Not on file Sexual Orientation Not on file documented as of this encounter Plan of Treatment Not on file documented as of this encounter Visit Diagnoses Diagnosis Vaginitis and vulvovaginitis, unspecified- Primary documented in this encounter Additional Health Concerns Infection Onset Date Last Indicated Resolved Time R/O COVID-19 10/09/2019 10/09/2019 10/11/2019 1:00 AM CDT COVID-19 10/09/2019 10/09/2019 11/08/2019 8:08 PM CDT documented as of this encounter Care Teams Blue Leather Sorter Relationship Specialty Start Date End Date Henrik Kuo MD [address] [facility] [address] [place] [address] PCP - General Family Practice 11/26/16 documented as of this encounter
--- OUTSIDE RECORDS SUMMARY | 2024-08-04 18:08 | XMS_ITS | Encounter Summary ---
Author Organization [facility] Address [address] [facility] [address] Care Team Providers Care Felt Hooker Name Role Phone Henrik Kuo MD Primary Care Provider [phone] Encounter Details Date Type Department Care Team (Latest Contact Info) Description 04/27/2003 Outpatient Historical [facility] Family Medicine- [address] [place] [address] Jing Swartz MD NO ADDRESS ON FILE HYPERLIPIDEMIA NEC/NOS (Primary Dx) Social History Tobacco Use Types Packs/Day Years Used Date Smoking Tobacco: Never Assessed Comments Unknown Sex and Gender Information Value Date Recorded Sex Assigned at Not on file Legal Sex Female 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 Gender Identity Not on file Sexual Orientation Not on file documented as of this encounter Plan of Treatment Not on file documented as of this encounter Visit Diagnoses Diagnosis Other and unspecified hyperlipidemia- Primary documented in this encounter Additional Health Concerns Infection Onset Date Last Indicated Resolved Time R/O COVID-19 10/09/2019 10/09/2019 10/11/2019 1:00 AM CDT COVID-19 10/09/2019 10/09/2019 11/08/2019 8:08 PM CDT documented as of this encounter Care Teams Felt Hooker Relationship Specialty Start Date End Date Henrik Kuo MD [address] [facility] [address] [place] [address] PCP - General Family Practice 11/26/16 documented as of this encounter
--- OUTSIDE RECORDS SUMMARY | 2024-08-04 18:08 | XMS_ITS | Encounter Summary ---
Author Organization [facility] Address [address] [facility] [place] [address] Care Team Providers Care Drilling Rig Operator Name Role Phone Henrik Kuo MD Primary Care Provider [phone] Encounter Details Date Type Department Care Team (Latest Contact Info) Description 05/22/2006 Outpatient Historical [facility] Family Medicine- [address] [place] [address] Too Navarrete NP NO ADDRESS ON FILE Acute Sinusitis, Unspecified (Primary Dx); Acute Pharyngitis; Cough Social History Tobacco Use Types Packs/Day Years Used Date Smoking Tobacco: Never Assessed Comments Unknown Sex and Gender Information Value Date Recorded Sex Assigned at Not on file Legal Sex Female 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 Gender Identity Not on file Sexual Orientation Not on file documented as of this encounter Plan of Treatment Not on file documented as of this encounter Visit Diagnoses Diagnosis Acute sinusitis, unspecified- Primary Acute pharyngitis Cough documented in this encounter Additional Health Concerns Infection Onset Date Last Indicated Resolved Time R/O COVID-19 10/09/2019 10/09/2019 10/11/2019 1:00 AM CDT COVID-19 10/09/2019 10/09/2019 11/08/2019 8:08 PM CDT documented as of this encounter Care Teams Drilling Rig Operator Relationship Specialty Start Date End Date Henrik Kuo MD [address] [facility] [address] [place] [address] PCP - General Family Practice 11/26/16 documented as of this encounter
--- OUTSIDE RECORDS SUMMARY | 2024-08-04 18:08 | XMS_ITS | Clinical Summary ---
Author Organization [facility] Address [address] [place] [address] Care Team Providers Care Receptionist Airline Lounge Name Role Phone Henrik Kuo MD Primary Care Provider [phone] Allergies Active Allergy Reactions Criticality Noted Date Comments Menthol Rash Low 08/26/2015 Penicillins Diarrhea,Nausea and Vomiting Low Sulfa (Sulfonamide Antibiotics) Rash Low 11/20/2017 Unclassified Drug Swelling Low 08/26/2015 Medications polyethylene glycol (MIRALAX) 17 gram Powder in PacketIndications :Constipation, unspecified constipation type Take 1 Packet (17 Grams) by mouth 2 times daily as needed for Constipation. 6 Packet 1 03/17/19 20 Active venlafaxine (EFFEXOR XR) 150 mg Extended Release 24 hour capsule Take 150 mg by mouth daily Takes with 75 mg daily . 03/17/19 19 Active propranoloL (INDERAL) 20 mg tablet 01/17/20 21 Active hydrOXYzine HCL (ATARAX) 25 mg tabletIndications :Itching Take 1 Tablet (25 mg) by mouth 3 times daily as needed for Itching. 30 Tablet 1 02/09/20 22 Active Cholecalciferol, Vitamin D3, 50 mcg (2,000 unit) Capsule Take 1 Capsule by mouth daily at bedtime. 07/24/19 17 Active nystatin (NYSTOP) 100,000 unit/gram powderIndications :Yeast infection Apply to affected area 2 times daily. 60 Gram 3 06/30/19 23 Active triamcinolone acetonide (KENALOG) 0.1 % CreamIndications: Rash and nonspecific skin eruption Apply to affected area 2 times daily. 80 Gram 3 11/16/19 23 Active nystatin (MYCOSTATIN) 100,000 unit/gram CreamIndications: Lacy infection Apply to affected area 2 times daily. 15 Gram 1 11/29/20 23 Active clotrimazole-beta methasone (LOTRISONE) 1-0.05 % Cream Apply to affected area 2 times daily. To the vulva and groin as needed for itching 45 Gram 3 07/15/19 24 Active cetirizine (ZyrTEC) 10 mg tabletIndications :Rash and nonspecific skin eruption take 1 tablet by mouth every day 100 Tablet 3 09/13/19 24 Active atorvastatin (LIPITOR) 40 mg tabletIndications :Encounter for wellness examination,Hyper lipidemia, unspecified hyperlipidemia type,Morbid obesity with body mass index of 40.0-49.9 ([facility]) Take 1 Tablet (40 mg) by mouth daily with supper. 100 Tablet 2 12/23/19 24 Active prazosin (MINIPRESS) 2 mg capsule TAKE 1 CAPSULE BY MOUTH ONCE EVERY NIGHT AT BEDTIME 12/04/19 24 Active ARIPiprazole (ABILIFY) 5 mg tablet Take 5 mg by mouth daily. Active ARIPiprazole (ABILIFY) 10 mg tablet Take 1 Tablet by mouth daily. 02/24/19 25 Active tirzepatide, weight loss, (Zepbound) 2.5 mg/0.5 mL Pen InjectorIndicatio ns:Morbid obesity with BMI of 50.0-59.9, adult ([facility]) Inject 2.5 mg by subcutaneous injection every 7 days. 2 mL 05/20/19 25 Active omeprazole (PriLOSEC) 40 mg Capsule, Delayed Release(E.C.)Nicole cations:Gastroeso phageal reflux disease, unspecified whether esophagitis present Take 1 Capsule (40 mg) by mouth daily. 100 Capsule 3 06/25/19 25 Active methenamine hippurate (HIPREX) 1 gram Tablet 06/23/19 25 Active tolterodine (DETROL LA) 2 mg Extended Release 24 hour capsuleIndication s:Urinary incontinence, unspecified type Take 1 Capsule (2 mg) by mouth daily. 100 Capsule 1 07/24/19 25 Active lidocaine (LIDODERM) 5 % Adhesive Patch, MedicatedIndicati ons:Arthritis of right knee Apply 2 Patches to affected area every 24 hours. 30 Patch 2 07/24/19 25 Active diclofenac sodium (VOLTAREN) 1 % gelIndications:Ar thritis of right knee Apply 2 Grams to affected area 4 times daily. 100 Gram 2 07/24/19 25 Active acetaminophen (TYLENOL) 325 mg tabletIndications :Arthritis of right knee Take 2 Tablets (650 mg) by mouth 3 times daily as needed for Pain, Moderate. 360 Tablet 2 07/24/19 25 Active tolterodine (DETROL LA) 2 mg Extended Release 24 hour capsule Take 1 Capsule (2 mg) by mouth daily. 30 Capsule 05/26/19 25 025 Discontinu ed(Reorder ) brace / splintIndications :Arthritis of right knee Type: knee, right 1 Each 07/02/19 25 025 brace / splintIndications :Arthritis of right knee Type: knee, right , Comment: hinged knee brace 1 Each 07/21/19 25 025 Hospital, Clinic, or Other Facility Administered Medication Ordered Dose Route Frequency Start Date End Date Status methylPREDNISolone acetate (DEPO-Medrol) injection 40 mgIndications:Arthr itis of right knee 40 mg Intra-arTICu ONE TIME ONLY 06/26/2024 A ctive Active Problems Problem Noted Date Diagnosed Date Arthritis of right knee 06/13/2024 Morbid obesity with body mass index of 40.0-49.9 12/29/2019 GERD (gastroesophageal reflux disease) 1 S/p nephrectomy 12/23/2009 Overview (05/19/2024): Left nephrectomy due to obstructive pyelonephritis with multiple stones on 06-01-04 Dr. Grant Stinson Left nephrectomy due to obstructive pyelonephritis with multiple stones on 06-01-04 Dr. Grant Stinson Hyperlipidemia Recurrent major depressive disorder Overview (06/09/2020): CHANGED PER PVQ RESPONSE DOS 12.29.2019 Schizophrenia Resolved Problems Problem Noted Date Diagnosed Date Resolved Date Chronic obstructive pyelonephritis 12/30/2009 12/30/2009 Overview (06/08/2020): Left nephrectomy due to obstructive pyelonephritis on 06-01-04 Dr. Grant Stinson Encounters Date Type Department Care Team Description 08/02/2024 Results Follow-Up [facility] Family Medicine [place] [address] [place] [address] [place] [address] Marta Amaro FNP MAMMO 3D ANGELIQUE SCREEN BILAT W OR WO CAD 07/30/2024 11:44 AM CDT - 07/30/2024 11:59 PM CDT Hospital Encounter [facility] Mammography [place] [address] [place] [address] Marta Amaro FNP Discharge Disposition: Home or Self Care 07/23/2024 9:00 AM CDT Office Visit [facility] Medicine [place] [address] [place] [address] [place] [address] Marta Amaro FNP Arthritis of right knee (Primary Dx); Urinary incontinence, unspecified type 07/20/2024 Orders Only [facility] Medicine [place] [address] [place] [address] [place] [address] Marta Amaro FNP Arthritis of right knee (Primary Dx) 07/16/2024 Abstract [facility] Medicine [place] [address] [place] [address] [place] [address] Provider, Abstract 07/15/2024 Telephone [facility] Medicine [place] [address] [place] [address] [place] [address] Marta Amaro FNP Question 07/15/2024 Telephone [facility] Medicine [place] [address] [place] [address] [place] [address] Henrik Kuo MD Information 07/14/2024 External Device Data ST[facility] ABSTRACTION Provider, Abstract 07/14/2024 External Device Data [facility] ABSTRACTION Provider, Abstract 07/14/2024 External Device Data [facility] ABSTRACTION Provider, Abstract 07/14/2024 Abstract [facility] Medicine [place] [address] [place] [address] [place] [phone] Provider, Abstract 07/13/20[facility] [address] [place] [phone] Marta Amaro FNP 07/06/2024 Results Follow-Up [facility] [place] [address] [place] [address] [place] [phone] Marta Amaro FNP COLON CANCER SCREEN, STOOL DNA 07/03/2024 9:00 AM CDT Office Visit [facility] [place] [address] [place] [address] [place] [phone] Marta Amaro FNP Encounter for wellness examination (Primary Dx) 06/29/[address] [phone] Provider, Abstract 06/29/[address] [phone] Provider, Abstract 06/26/2024 1:00 PM CDT Office Visit [facility] [place] [address] [place] [address] [place] [phone] Marta Amaro FNP Arthritis of right knee (Primary Dx); Morbid obesity with BMI of 50.0-59.9, adult ([facility]) 06/24/[address] [place] [phone] Marta Amaro FNP Gastroesophageal reflux disease, unspecified whether esophagitis present 06/22/2024 [facility] [address] [place] [phone] Viviana Hartley MD 06/22/2024 [facility] [address] [phone] Henrik Kuo MD 06/18/2024 [facility] Medicine [place] [address] [facility] [address] [place] [address] [place] [address] Marta Amaro FNP Provider Call 06/17/2024 [facility] Medicine [place] [address] [place] [address] Henrik Kuo MD Question 06/16/2024 External Device Data ST[facility] ABSTRACTION Provider, Abstract 06/16/2024 External Device Data [place] ABSTRACTION Provider, Abstract 06/16/2024 External Device Data [place] ABSTRACTION Provider, Abstract 06/16/[address] [phone] Marta Amaro FNP Medication Question 06/16/2024 [facility] [place] [address] [place] [address] [place] [phone] Marta Amaro FNP Hospital Follow Up 06/13/2024 5:33 PM CDT - 06/13/2024 6:41 PM CDT Emergency [facility] Emergency Medicine [address] [phone] Ne Starks MD Arthritis of right knee (Primary Dx) Discharge Disposition: Home or Self Care 06/10/[address] [phone] Henrik Kuo MD Question 06/08/2024 Orders Only [facility] Medicine [place] [address] [place] [address] [place] [address] Marta Amaro FNP Screening for colon cancer (Primary Dx) 06/08/2024 [facility] Medicine [place] [address] [place] [address] [place] [address] Marta Amaro FNP Provider Call 06/03/[address] [place] [phone] Henrik Kuo MD Medication Refill 06/01/2024 Telephone [facility] [address] [phone] Henrik Kuo MD Question 06/01/2024 Results Follow-Up [address] [phone] Marta Amaro FNP XR CERVICAL SPINE 2 OR 3 VIEWS 05/25/2024 8:10 AM CDT - 05/25/2024 11:59 PM CDT Hospital Encounter [facility] [address] [phone] Marta Amaro FNP Discharge Disposition: Home or Self Care 05/25/2024 Orders Only [address] [phone] Marta Amaro FNP Recurrent UTI (Primary Dx) 05/25/2024 Results Follow-Up [address] [place] [phone] Marta Amaro FNP POC URINALYSIS DIPSTICK AUTOMATED, URINE CULTURE, COMPREHENSIVE METABOLIC PANEL, CBC WITH DIFFERENTIAL 05/25/[address] [place] [phone] Marta Amaro FNP Medication Assistance 05/25/2024 [address]ill [place] [address] [facility] [address] [place] [phone] Viviana Hartley MD 05/19/2024 9:20 AM CDT Office Visit [address] [place] [phone] Marta Amaro FNP Recurrent UTI (Primary Dx); Urinary pain; Schizophrenia, unspecified type (CMS/HCC); Morbid obesity with BMI of 50.0-59.9, adult (CMS/HCC); Left arm numbness; Declined influenza vaccine 05/18/2024 12:15 AM CDT - 05/18/2024 11:59 PM CDT Hospital Encounter [facility] Emergency Medical Services [address] [phone] Ambulance, [facility] Discharge Disposition: [facility] 05/12/2024 External Device Data STL ABSTRACTION Provider, Abstract from Last 3 Months Immunizations Immunization Administration Dates Next Due (PNEUMOVAX 23)(50 YRS UP) PNEUMOCOCCAL POLYSACCHARIDE (PPV23) 0.5 ML, IM 11/29/2006 (SPIKEVAX) (12 YRS UP PRIMAR Y SERIES) COVID-19 VACCINE - MRNA-1273(PF) 100 MCG/0.5 ML IM SUSP 08/24/2021,07/13/2021 08/02/2021 (TDVAX)(7 YRS UP) TETANUS AN D DIPHTHERIA TOXOIDS, ADSORBED (2 LF OF TETANUS TOXOID AND 2 LF OF DIPHTHERIA TOXOID), 0.5ML (PF), IM 06/24/2001 INFLUENZA VACCINE QUADRIVALE NT 3 YR UP PF IM 11/20/2017,10/13/2015,11/12/2014 INFLUENZA VACCINE QUADRIVALE NT 6 MOS UP IM 11/25/2018 INFLUENZA VACCINE QUADRIVALE NT 6 MOS UP PF IM 11/15/2022,12/21/2020,12/04/2019 Influenza Seasonal Unspecifi ed Formulation IM 12/02/2021,11/19/2021,12/04/2019,11/11,11/20/2017,11/21/2016,10/13/19 16,11/12/2014,11/20/2013,11/28/2006,1 PREVNAR (PCV13) pneumococcal 13-valent conjugate Vaccine 11/20/2017 Pneumococcal 13-sidney Conj Vac c Patient Supplied 11/20/2017 Family History Medical History Relation Name Comments Unknown Daughter NONE Unknown Father Other Mother benign brain tu mor Uterine Cancer Sister 1 Alexia Unknown Son Breast Cancer Neg Hx Ovarian Cancer Neg Hx Relation Name Status Comments Brother 1 Alive Brother 2 Alive Daughter NONE Father Maternal Grandmother Mother Sister 1 Alexia Alive Sister 2 Alive Son Alive Social History Tobacco Use Types Packs/Day Years Used Date Smoking Tobacco: Never Smokeless Tobacco: Never Tobacco Cessation:Counseling Given: No Alcohol Use Standard Drinks/Week Comments No 0 [...] on file Legal Sex Female 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 Gender Identity Not on file Sexual Orientation Not on file Last Filed Vital Signs Vital Sign Reading Time Taken Comments Blood Pressure 126/69 07/23/2024 8:56 AM CDT Pulse 85 07/23/2024 8:56 AM CDT Temperature 36.4 C (97.5 F) 07/23/2024 8:56 AM CDT Respiratory Rate 21 07/23/2024 8:56 AM CDT Oxygen Saturation 91% 07/23/2024 8:56 AM CDT Inhaled Oxygen Concentration - - Weight 129.5 kg (285 lb 6.4 oz) 07/23/2024 8:56 AM CDT Height 157.5 cm (5' 2 ) 07/23/2024 8:56 AM CDT Body Mass Index 52.2 07/23/2024 8:56 AM CDT Plan of Treatment Upcoming Encounters Date Type Department Care Team (Late st Contact Info) Description 01/22/2025 10:00 AM CORPORATE GIVING MANAGER Office Visit [facility] Medicine [place] [address] [facility] [place] [phone] Marta Amaro, BEAUTY ADVISOR [address] [facility] [place], [place] [phone] Health Maintenance Due Date Last Done Comments FIT/FOBT Q 1 YEAR (AUTO ORDER) 1982 DTAP/TDAP/TD VACCINES (1 - Tdap) 06/25/2001 06/24/2001 FIT/FOBT Q 1 year 2009 Flex Sig/CT Colonography Q 5 years 2009 ZOSTER VACCINE (1 of 2) 2014 COVID-19 Vaccine ( season) 2023 12/13/2022, 08/24/2021, 07/13/2021 RSV VACCINE (60+ or ) (1 - Risk 60-74 years 1-dose series) 2024 COLORECTAL CANCER SCREENING (AUTO ORDER) 04/26/2024 04/26/2014 COLORECTAL SCREENING 04/26/2024 04/26/2014 BREAST CANCER SCREENING 07/30/2025 07/31/19 25, 07/09/2023, 01/17/2022, Additional history exists CERVICAL CANCER SCREENING 05/15/2026 PAP SMEAR 05/15/2026 05/16/2023, 04/16/2014 Pre-Diabetes and Diabetes Screening 01/02/2027 01/03/2024, 07/03/2023, 12/26/2021, Additional history exists Colorectal Cancer Screening 07/01/2027 FIT-DNA Q 3 years 07/01/2027 06/30/2024 FIT/ DNA Q 3 YEARS (AUTO ORDER) 07/01/2027 06/30/2024, 06/30/2024 HPV/Cotest (21-29) 05/15/2028 05/16/2023, 04/16/2014 HPV/Cotest (30-65) 05/15/2028 05/16/2023, 04/16/2014 Colorectal Cancer Screening (AUTO ORDER) 06/30/2029 FLEX SIG/CT COLONOGRAPHY Q 5 YEARS (AUTO ORDER) 06/30/2029 06/30/2024, 06/30/2024 INFLUENZA VACCINE Completed 05/19/2024, , 12/02/2021, Additional history exists [place] Ad[place]age ([place]) Preventative Visit/Annual Wellness Visit Completed 07/03/2024, 07/03/2023, 04/06/2022, Additional history exists HEPATITIS B VACCINES Aged Out No long er eligible based on patient's age to complete this topic Procedures Procedure Name Priority Date/Time Associated Diagnosis Comments MAMMO 3D ANGELIQUE SCREEN BILAT W OR WO CAD Routine 07/30/2024 12:02 PM CDT Visit for screening mammogram COLON CANCER SCREEN, STOOL DNA Routine 06/30/2024 5:01 AM CDT Screening for colon cancer XR KNEE 3 VW RIGHT Stat 06/13/2024 6: 09 PM CDT XR CERVICAL SPINE 2 OR 3 VIEWS Routine 05/25/2024 8:25 AM CDT Left arm numbness CBC WITH DIFFERENTIAL Routine 05/19/2024 10:37 AM CDT Schizophrenia, unspecified type (CMS/HCC) COMPREHENSIVE METABOLIC PANEL Routine 05/19/2024 10:37 AM CDT Schizophrenia, unspecified type (CMS/HCC) URINE CULTURE Routine 05/19/2024 9:28 AM CDT Urinary pain POC URINALYSIS DIPSTICK AUTOMATED Routine 05/19/2024 9:20 AM CDT Urinary pain HEMOGLOBIN A1C Routine 01/03/2024 10:39 AM CORPORATE GIVING MANAGER Elevated blood sugar Schizophrenia, unspecified type (CMS/HCC) CERV/VAG CYTO SCREEN PAP W/HPV Routine 05/16/2023 12:00 AM CDT Screening for vaginal cancer from Last 3 Months or Most Recently Relevant to Health Maintenance Results * MAMMO 3D ANGELIQUE SCREEN BILAT [...] or areas of architectural distortion. Marta Amaro [facility] MAMMO ORDERABLES Final Result * COLON CANCER SCREEN, STOOL DNA (06/30/2024 5:01 AM CDT) COLOGUARD RESULT Negative Negative [facility] Comment: The Cologuard (TM) test was performed on this specimen. NEGATIVE TEST RESULT. A negative Cologuard result indicates a low likelihood that a colorectal cancer (CRC) or advanced adenoma (adenomatous polyps with more advanced pre-malignant features) is present. The chance that a person with a negative Cologuard test has a colorectal cancer is less than 1 in 1500 (negative predictive value >99.9%) or has an advanced adenoma is less than 5.3% (negative predictive value 94.7%). These data are based on a prospective cross-sectional study of 10,000 individuals at average risk for colorectal cancer who were screened with both Cologuard and colonoscopy. (Rupesh Young, N Engl J Med 2014;370(14):0904-7429) The normal value (reference range) for this assay is negative. COLOGUARD RE-SCREENING RECOMMENDATION: Periodic colorectal cancer screening is an important part of preventive healthcare for asymptomatic individuals at average risk for colorectal cancer. Following a negative Cologuard result, the [place] Cancer Society and U.S. Multi-Society Task Force screening guidelines recommend a Cologuard re-screening interval of 3 years. References: [place] Cancer Society Guideline for Colorectal Cancer Screening: https://www.cancer.org/cancer/ihxqe-ubnusn-gdsdbe/gzbkfyytd-cwrgnuici-iyduqrf/ac s-rec ommendations.html.; Lino DK, Babak CORREA, Michael MathurK, Colorectal Cancer Screening: Recommendations for Physicians and Patients from the U.S. Multi-Society Task Force on Colorectal Cancer Screening , Am J Gastroenterology 2017; 112:5302-9192. TEST DESCRIPTION: Composite algorithmic analysis of stool DNA-biomarkers with hemoglobin immunoassay. Quantitative values of individual biomarkers are not reportable and are not associated with individual biomarker result reference ranges. Cologuard is intended for colorectal cancer screening of adults of either sex, 45 years or older, who are at average-risk for colorectal cancer (CRC). Cologuard has been approved for use by the U.S. FDA. The performance of Cologuard was established in a cross sectional study of average-risk adults aged 50-84. Cologuard performance in patients ages 45 to 49 years was estimated by sub-group analysis of near-age groups. Colonoscopies performed for a positive result may find as the most clinically significant lesion: colorectal cancer [4.0%], advanced adenoma (including sessile serrated polyps greater than or equal to 1cm diameter) [20%] or non- advanced adenoma [31%]; or no colorectal neoplasia [45%]. These estimates are derived from a prospective cross-sectional screening study of 10,000 individuals at average risk for colorectal cancer who were screened with both Cologuard and colonoscopy. (Rupesh Young, N Engl J Med 2014;370(14):0809-4652.) Cologuard may produce a false negative or false positive result (no colorectal cancer or precancerous polyp present at colonoscopy follow up). A negative Cologuard test result does not guarantee the absence of CRC or advanced adenoma (pre-cancer). The current Cologuard screening interval is every 3 years. ([place] Cancer Society and U.S. Multi-Society Task Force). Cologuard performance data in a 10,000 patient pivotal study using colonoscopy as the reference method can be accessed at the following location: www.[employer],.[employer]/results. Additional description of the Cologuard test process, warnings and precautions can be found at www.[employer].com. Stool STOOL SPECIMEN / Unknown 06/30/2024 5:01 AM CDT 07/01/2024 1:38 PM CDT us Marta Amaro BEAUTY ADVISOR BODY FLUIDS AND STOOLS Final Res ult [employer] CLIA # [id number] [address] [facility], [address] [place] [address] * XR KNEE 3 VW RIGHT (06/13/2024 6:09 PM CDT) Anatomical Region Laterality Modality Lower Extremity Computed Radiogr aphy 06/13/2024 6:09 PM CDT Impressions 06/13/2024 6:16 PM CDT IMPRESSION: No acute osseous abnormality. Mild degenerative changes. Narrative 06/13/2024 6:16 PM CDT Exam: XR KNEE 3 VW RIGHT Date/Time of Exam: 06/13/2024 6:09 PM Reason For Exam: Pain. Diagnosis: See Reason for Exam. Comparison: None. Findings: There is no evidence of an acute fracture or dislocation. There are mild degenerative changes. The soft tissues appear grossly unremarkable. Procedure Note Jeanmarie Martin, DO - 06/13/2024 Exam: XR KNEE 3 VW RIGHT Date/Time of Exam: 06/13/2024 6:09 PM Reason For Exam: Pain. Diagnosis: See Reason for Exam. Comparison: None. Findings: There is no evidence of an acute fracture or dislocation. There are mild degenerative changes. The soft tissues appear grossly unremarkable. IMPRESSION: No acute osseous abnormality. Mild degenerative changes. us Ne Starks MD DIAGNOSTIC IMAGING ORDERABLES F inal Result * XR CERVICAL SPINE 2 OR 3 VIEWS (05/25/2024 8:25 AM CDT) Anatomical Region Laterality Modality Spine Computed Radiogr aphy 05/25/2024 8:25 AM CDT Impressions 05/25/2024 9:30 AM CDT IMPRESSION: See below. Exam: XR CERVICAL SPINE 2 OR 3 VIEWS Date/Time of Exam: 05/25/2024 8:25 AM Reason For Exam: See Diagnosis. Diagnosis: Left arm numbness. Findings: Comparison: None There is preservation of the normal cervical lordosis. Vertebral body heights are well maintained. Mild disc space narrowing at C6-7. Multilevel facet hypertrophy. The prevertebral soft tissue structures are unremarkable. IMPRESSION: 1. No evidence of fracture or subluxation in the cervical spine. 2. Moderate disc space narrowing at C6-7. Narrative Procedure Note Kevin Carroll MD - 05/25/2024 IMPRESSION: See below. Exam: XR CERVICAL SPINE 2 OR 3 VIEWS Date/Time of Exam: 05/25/2024 8:25 AM Reason For Exam: See Diagnosis. Diagnosis: Left arm numbness. Findings: Comparison: None There is preservation of the normal cervical lordosis. Vertebral body heights are well maintained. Mild disc space narrowing at C6-7. Multilevel facet hypertrophy. The prevertebral soft tissue structures are unremarkable. IMPRESSION: 1. No evidence of fracture or subluxation in the cervical spine. 2. Moderate disc space narrowing at C6-7. Marta Amaro BEAUTY ADVISOR DIAGNOSTIC IMAGING ORDERABLES Fi nal Result * CBC WITH DIFFERENTIAL (05/19/2024 10:37 AM CDT) WBC 7.1 3.8 - 10.8 Thousand/u L [facility] RBC 4.53 3.80 - 5.10 Million/uL [facility] HEMOGLOBIN 14.0 11.7 - 15.5 g/dL [facility] HEMATOCRIT 42.3 35.0 - 45.0 % [facility] MCV 93.4 80.0 - 100.0 fL [facility] MCH 30.9 27.0 - 33.0 pg [facility] MCHC 33.1 32.0 - 36.0 g/dL [facility] Comment: For adults, a slight decrease in the calculated MCHC value (in the range of 30 to 32 g/dL) is most likely not clinically significant; however, it should be interpreted with caution in correlation with other red cell parameters and the patient's clinical condition. RDW 12.3 11.0 - 15.0 % [facility] PLATELETS 311 140 - 400 Thousand/u L [facility] MPV 9.1 7.5 - 12.5 fL [facility] NEUTROPHIL ABSOLUTE 4,466 1,500 - 7,800 cells/uL [facility] LYMPHOCYTE ABSOLUTE 1,995 850 - 3,900 cells/uL [facility] MONOCYTE ABSOLUTE 490 200 - 950 cells/uL [facility] [facility] EOSINOPHIL ABSOLUTE 107 15 - 500 cells/uL [facility] BASOPHILS ABSOLUTE 43 0 - 200 cells/uL [facility] NEUTROPHIL 62.9 % [facility] LYMPHOCYTES 28.1 % [facility] MONOCYTE 6.9 % [facility] EOSINOPHILS 1.5 % [facility] BASOPHILS 0.6 % [facility] Comment: Test Performed at: [facility] [address] Rosanna Albarado MD Blood 05/19/2024 10:3 7 AM CDT 05/20/2024 6:00 AM CDT us Marta Amaro BEAUTY ADVISOR HEMATOLOGY ORDERABLES Final Resu lt [facility] [phone] [facility] [address] [place] [address] * (ABNORMAL) COMPREHENSIVE METABOLIC PANEL (05/19/2024 10:37 AM CDT) GLUCOSE 97 65 - 99 mg/dL [facility] Comment: Fasting reference interval BUN 27(H) 7 - 25 mg/dL [facility] CREATININE 0.74 0.50 - 1.05 mg/dL [facility] GFR 93 > OR = 60 mL/min/1.7 3m2 [facility] BUN/CREAT RATIO 36(H) 6 - 22 (calc) [facility] SODIUM 140 135 - 146 mmol/L [facility] POTASSIUM 4.7 3.5 - 5.3 mmol/L [facility] CHLORIDE 103 98 - 110 mmol/L [facility] CO2 30 20 - 32 mmol/L [facility] CALCIUM 10.1 8.6 - 10.4 mg/dL [facility] TOTAL PROTEIN 7.3 6.1 - 8.1 g/dL [facility] ALBUMIN 4.2 3.6 - 5.1 g/dL [facility] GLOBULIN 3.1 1.9 - 3.7 g/dL (calc) [facility] ALBUMIN/GLOBULIN RATIO 1.4 1.0 - 2.5 (calc) [facility] BILIRUBIN TOTAL 0.8 0.2 - 1.2 mg/dL [facility] ALKALINE PHOSPHATASE 94 37 - 153 U/L [facility] AST 26 10 - 35 U/L [facility] ALT 29 6 - 29 U/L [facility] Comment: Test Performed at: [facility] [address] Rosanna Albarado MD Blood 05/19/2024 10:3 7 AM CDT 05/20/2024 6:00 AM CDT us Marta Amaro BEAUTY ADVISOR CHEMISTRY ORDERABLES Final Resul t [facility] [phone] [address] * (ABNORMAL) URINE CULTURE (05/19/2024 9:28 AM CDT) URINE CULTURE SEE NOTE(A) [facility] Comment: CULTURE, URINE, ROUTINE Micro Number: [id number] Test Status: Final Specimen Source: Urine, clean catch Specimen Quality: Adequate Result: 50,000-100,000 CFU/mL of Escherichia coli E.coli INT JOSE AMOX/CLAVULANATE S 8 AMP/SULBACTAM I 16 CEFAZOLIN NR <=4 2 CEFEPIME S <=0.12 CEFTAZIDIME S <=1 CEFTRIAXONE S <=0.25 CIPROFLOXACIN S <=0.06 GENTAMICIN S <=1 IMIPENEM S <=0.25 LEVOFLOXACIN S <=0.12 MEROPENEM S <=0.25 NITROFURANTOIN S <=16 PIP/TAZOBACTAM S <=4 TRIMETHOPRIM/SULFA S <=20 S = Susceptible I = Intermediate R = Resistant NS = Not susceptible SDD = Susceptible Dose Dependent * = Not Tested NR = Not Reported NN = See Therapy Comments THERAPY COMMENTS Note 1: For infections other than uncomplicated UTI caused by E. coli, K. pneumoniae or P. mirabilis: Cefazolin is resistant if JOSE > or = 8 mcg/mL. (Distinguishing susceptible versus intermediate for isolates with JOSE < or = 4 mcg/mL requires additional testing.) Note 2: For uncomplicated UTI caused by E. coli, K. pneumoniae or P. mirabilis: Cefazolin is susceptible if JOSE <32 mcg/mL and predicts susceptible to the oral agents cefaclor, cefdinir, cefpodoxime, cefprozil, cefuroxime, cephalexin and loracarbef. Test Performed at: [facility] [address] [place] [address] Rosanna Albarado MD Urine URINE SPECIMEN OBTAINED BY CLEAN CATCH PROCEDURE / Unknown 05/19/2024 9:28 AM CDT 05/20/2024 7:00 AM CDT Marta DAWN MICROBIOLOGY - GENERAL ORDERABLE S Final Result [facility] [phone] [facility] [address] [address] [facility] [place] [address] * (ABNORMAL) POC URINALYSIS DIPSTICK AUTOMATED (05/19/2024 9:20 AM CDT) COLOR UA POC Yellow Pale to Dark Yellow [facility] [place] [facility] CLARITY UA POC Clear Clear, Other [facility] [place] GLUCOSE UA POC Negative Negative, Normal [facility] [place] BILIRUBIN UA POC Negative Negative [facility] [place] KETONES UA POC Negative Negative [facility] [place] SPECIFIC GRAVITY UA POC 1.025 1.000 - 1.030 [facility] [place] BLOOD UA POC Trace(A) Negative [facility] [place] PH UA POC 6.0 5.0 - 8.0 [facility] [place] PROTEIN UA POC 1+(A) Negative [facility] [place] UROBILINOGEN UA POC 1.0 <2.0 mg/dL [facility] [place] NITRITE UA POC Negative Negative [facility] [place] LEUKOCYTE ESTERASE UA POC 2+(A) Negative [facility] [place] KIT LOT NUMBER POC [id number] [facility] [place] KIT EXP DATE POC [id number] [facility] [place] Urine 05/19/2024 9:20 AM CDT us Marta Amaro BEAUTY ADVISOR POINT OF CARE TESTING Final Resu lt [facility] [place] IA# [id number] [address] [place] [address] * HEMOGLOBIN A1C (01/03/2024 10:39 AM CORPORATE GIVING MANAGER) HEMOGLOBIN A1C 5.6 <5.7 % of total Hgb [facility] Comment: For the purpose of screening for the presence of diabetes: <5.7% Consistent with the absence of diabetes 5.7-6.4% Consistent with increased risk for diabetes (prediabetes) > or =6.5% Consistent with diabetes This assay result is consistent with a decreased risk of diabetes. Currently, no consensus exists regarding use of hemoglobin A1c for diagnosis of diabetes in children. According to [place] Diabetes Association (ADA) guidelines, hemoglobin A1c <7.0% represents optimal control in non- diabetic patients. Different metrics may apply to specific patient populations. Standards of Medical Care in Diabetes(ADA). ESTIMATED AVERAGE GLUCOSE (MG/DL) 114 mg/dL [facility] ESTIMATED AVERAGE GLUCOSE (MMOL/L) 6.3 mmol/L [facility] Comment: Test Performed at: [facility] [address] [place] [address] Rosanna Albarado MD Blood 01/03/2024 10:3 9 AM CORPORATE GIVING MANAGER 01/04/2024 4:31 AM CORPORATE GIVING MANAGER Marta Amaro BEAUTY ADVISOR CHEMISTRY ORDERABLES Final Resul t [facility] [phone] [facility] [address] [place] [address] * CERV/VAG CYTO SCREEN PAP W/HPV (05/16/2023 12:00 AM CDT) CLINICAL INFORMATION [facility] Comment:SCREENING LAST MENSTRUAL PERIOD [facility] Comment:NONE GIVEN PREV PAP: [facility] Comment:NONE GIVEN PREV BX: [facility] Comment:NONE GIVEN SOURCE [facility] Comment:VAGINAL CUFF ADEQUACY: [facility] Comment:SATISFACTORY FOR MIRANDA LUATION PAP INTERP [facility] Comment: Cytology Results: Negative for intraepithelial lesion or malignancy. COMMENT (PAP TEST) [facility] Comment: This Pap test has been evaluated with computer assisted technology. HADOOP ARCHITECT: [facility] Comment: MMW, CT(ASCP) CT screening location: [place] [address] [place] [address] EXPLANATORY NOTE [facility] Comment: EXPLANATORY NOTE: The Pap is a screening test for cervical cancer. It is not a diagnostic test and is subject to false negative and false positive results. It is most reliable when a satisfactory sample, regularly obtained, is submitted with relevant clinical findings and history, and when the Pap result is evaluated along with historic and current clinical information. HPV E6/E7 Not Detected Not Detected [facility] Comment: Methodology: Extracting Machine Operator-Mediated Amplification This assay detects E6/E7 viral messenger RNA (mRNA) from 14 high-risk HPV types (16,18,31,33,35,39,45,51,52,56,58,59,66,68). Cervical sources are required for HPV testing. If a vaginal source from a patient who has had a total hysterectomy with removal of cervix was submitted, please contact the testing laboratory for alternative testing options. For additional information, please refer to http://education.Bihu.com/faq/TRB237o2 (This link if provided for information/ educational purposes only.) Test Performed at: [facility] [address] [address] Rosanna KULKARNI Genital (Vaginal cuff) 05/16/2023 05/20/2023 8:36 AM CDT Viviana Hartley MD PATHOLOGY/CYTOLOGY ORD ERABLES Final Result [facility] [phone] [facility] [address] [address] from Last 3 Months or Most Recently Relevant to Health Maintenance Insurance [place]ID [place] [facility] DUAL COMPLETE PPO [facility] [id number] Care Teams Receptionist Airline Lounge Relationship Specialty Start Date End Date Henrik Kuo MD [address] [address] PCP - General Family Practice 01/23/21
--- OUTSIDE RECORDS SUMMARY | 2024-08-04 18:08 | XMS_ITS | Encounter Summary ---
Author Organization [facility] Address [address] [place] [address] Care Team Providers Care Taxi Driver Supervisor Name Role Phone Henrik Kuo MD Primary Care Provider [phone] [phone] Encounter Details Date Type Department Care Team (Latest Contact Info) Description 04/02/2005 Outpatient Historical [facility] Family Medicine- [place] [address] [place] [address] Jing Swartz MD NO ADDRESS ON FILE ENLARGEMENT LYMPH NODES (Primary Dx); SKIN ANOMALY NEC Social History Tobacco Use Types Packs/Day Years Used Date Smoking Tobacco: Never Assessed Comments Unknown Sex and Gender Information Value Date Recorded Sex Assigned at Not on file Legal Sex Female 5:22 AM BLANKMAKER Gender Identity Not on file Sexual Orientation Not on file documented as of this encounter Plan of Treatment Not on file documented as of this encounter Visit Diagnoses Diagnosis Enlargement of lymph nodes- Primary Other specified congenital anomaly of skin documented in this encounter Additional Health Concerns Infection Onset Date Last Indicated Resolved Time R/O COVID-19 10/09/2019 10/09/2019 10/11/2019 1:00 AM CDT COVID-19 10/09/2019 10/09/2019 11/08/2019 8:08 PM CDT documented as of this encounter Care Teams Taxi Driver Supervisor Relationship Specialty Start Date End Date Henrik Kuo MD [address] [facility] [address] [place] [address] PCP - General Family Practice 11/26/16 documented as of this encounter
--- OUTSIDE RECORDS SUMMARY | 2024-08-04 18:08 | XMS_ITS | Encounter Summary ---
Author Organization [facility] Address [address] [place] [address] Care Team Providers Care Unix Developer Name Role Phone Henrik Kuo MD Primary Care Provider [phone] [phone] Reason for Referral * Outpatient Services (Routine) - Closed Specialty Diagnoses / Procedures Referred By Alton t Referred To Contact Radiology Diagnoses Other screening mammogram Procedures MAMMO DIGITIZED STUDY Jing Swartz MD NO ADDRESS ON FILE [facility] [address] [facility] [address] [place] [address] Phone: tel: fax: Referral ID Status Reason Start Date Expiration Date Visits Re quested Visits Authorized [id number] Closed 09/13/2011 09/12/2012 1 1 Encounter Details Date Type Department Care Team (Late st Contact Info) Description 09/13/2011 Ancillary Orders [facility] Family Medicine- [place] [address] [place] [address] Jing Swartz MD NO ADDRESS ON FILE Other screening mammogram Social History Tobacco Use Types Packs/Day Years Used Date Smoking Tobacco: Never Alcohol Use Standard Drinks/Week Comments No 0 (1 standard drink = 0.6 oz pur e alcohol) Comments No Sex and Gender Information Value Date Recorded Sex Assigned at Not on file Legal Sex Female 5:22 AM SEED CLEANER OPERATOR Gender Identity Not on file Sexual Orientation Not on file documented as of this encounter Plan of Treatment Not on file documented as of this encounter Results * MAMMO DIGITIZED STUDY (05/06/2007 4:30 PM CDT) Narrative Ayanna Mensah, RT - 09/13/2011 4:30 PM CDT Order information only. Exam was auto-finalized. Procedure Note Ayanna Mensah, RT - 09/13/2011 Order information only. Exam was auto-finalized. Jing Swartz MD DIAGNOSTIC IMAGING ORDERABL ES Final Result documented in this encounter Visit Diagnoses Diagnosis Other screening mammogram Other screening mammogram documented in this encounter Additional Health Concerns Infection Onset Date Last Indicated Resolved Time R/O COVID-19 10/09/2019 10/09/2019 10/11/2019 1:00 AM CDT COVID-19 10/09/2019 10/09/2019 11/08/2019 8:08 PM CDT documented as of this encounter Care Teams Unix Developer Relationship Specialty Start Date End Date Henrik Kuo MD [address] [facility] [address] [place] [address] PCP - General Family Practice 11/26/16 documented as of this encounter
--- OUTSIDE RECORDS SUMMARY | 2024-08-04 18:08 | XMS_ITS | Encounter Summary ---
Author Organization [facility] Address [address] [facility] [place] [address] Care Team Providers Care Paper Colorer Name Role Phone Henrik Kuo MD Primary Care Provider [phone] Encounter Details Date Type Department Care Team (Late st Contact Info) Description 09/23/2012 Ancillary Orders [facility] Family Medicine- [place] [address] [place] [id number] Luli Faulkner APRN NO ADDRESS ON FILE Other screening mammogram (Primary Dx) Social History Tobacco Use Types Packs/Day Years Used Date Smoking Tobacco: Never Smokeless Tobacco: Never Alcohol Use Standard Drinks/Week Comments No 0 (1 standard drink = 0.6 oz pur e alcohol) Comments No Sex and Gender Information Value Date Recorded Sex Assigned at Not on file Legal Sex Female 5:22 AM CONDUCTOR YARD Gender Identity Not on file Sexual Orientation Not on file Occupation Industry Job Start Date Job End Date Not on file Not on file Not on file Not on file documented as of this encounter Plan of Treatment Not on file documented as of this encounter Results * MAMMO DIGITIZED STUDY (09/16/2007 11:06 AM CDT) Narrative Ayanna Mensah, RT - 09/23/2012 11:06 AM CDT Order information only. Exam was auto-finalized. Procedure Note Ayanna Mensah, RT - 09/23/2012 Order information only. Exam was auto-finalized. us Luli Faulkner APRN DIAGNOSTIC IMAGIN G ORDERABLES Final Result documented in this encounter Visit Diagnoses Diagnosis Other screening mammogram- Primary Other screening mammogram documented in this encounter Additional Health Concerns Infection Onset Date Last Indicated Resolved Time R/O COVID-19 10/09/2019 10/09/2019 10/11/2019 1:00 AM CDT COVID-19 10/09/2019 10/09/2019 11/08/2019 8:08 PM CDT documented as of this encounter Care Teams Paper Colorer Relationship Specialty Start Date End Date Henrik Kuo MD [facility] [address] [phone] PCP - General Family Practice 11/26/16 documented as of this encounter
--- OUTSIDE RECORDS SUMMARY | 2024-08-04 18:08 | XMS_ITS | Encounter Summary ---
Author Organization [facility] Address [address] [place] [address] Care Team Providers Care Fabric Normalizer Name Role Phone Henrik Kuo MD Primary Care Provider [phone] [phone] Encounter Details Date Type Department Care Team (Late st Contact Info) Description 09/02/2008 Ancillary Orders [facility] Medicine [address] [address] Jing Swartz MD NO ADDRESS ON FILE Social History Tobacco Use Types Packs/Day Years Used Date Smoking Tobacco: Never Alcohol Use Standard Drinks/Week Comments No 0 (1 standard drink = 0.6 oz pur e alcohol) Comments No Sex and Gender Information Value Date Recorded Sex Assigned at Not on file Legal Sex Female 5:22 AM VEGETABLE HARVEST MACHINE OPERATOR Gender Identity Not on file Sexual [...] documented as of this encounter Care Teams Fabric Normalizer Relationship Specialty Start Date End Date Henrik Kuo MD [address] [address] PCP - General Family Practice 11/26/16 documented as of this encounter
--- OUTSIDE RECORDS SUMMARY | 2024-08-04 18:08 | XMS_ITS | Encounter Summary ---
Author Organization [facility] Address [address] [facility] [place] [address] Care Team Providers Care Geographic Information System Analyst Name Role Phone Henrik Kuo MD Primary Care Provider [phone] Encounter Details Date Type Department Care Team (Latest Contact Info) Description 08/04/2004 Outpatient Historical [facility] Family Medicine- [place] [address] [place] [address] Jing Swartz MD NO ADDRESS ON FILE ROUTINE SPONGE HOOKER EXAMINATION (Primary Dx) Social History Tobacco Use Types Packs/Day Years Used Date Smoking Tobacco: Never Assessed Comments Unknown Sex and Gender Information Value Date Recorded Sex Assigned at Not on file Legal Sex Female 5:22 AM INSTRUMENT MECHANIC Gender Identity Not on file Sexual Orientation Not on file documented as of this encounter Plan of Treatment Not on file documented as of this encounter Visit Diagnoses Diagnosis Routine gynecological examination- Primary documented in this encounter Additional Health Concerns Infection Onset Date Last Indicated Resolved Time R/O COVID-19 10/09/2019 10/09/2019 10/11/2019 1:00 AM CDT COVID-19 10/09/2019 10/09/2019 11/08/2019 8:08 PM CDT documented as of this encounter Care Teams Geographic Information System Analyst Relationship Specialty Start Date End Date Henrik Kuo MD [address] [facility] [address] [place] [address] PCP - General Family Practice 11/26/16 documented as of this encounter
--- OUTSIDE RECORDS SUMMARY | 2024-08-04 18:08 | XMS_ITS | Encounter Summary ---
Author Organization [facility] Address [address] [facility] [place] [address] Care Team Providers Care Health Informatics Advisor Name Role Phone Henrik Kuo MD Primary Care Provider [phone] Encounter Details Date Type Department Care Team (Latest Contact Info) Description 08/04/2004 Outpatient Historical [facility] Family Medicine- [place] [address] [place] [address] Jing Swartz MD NO ADDRESS ON FILE ROUTINE COMPLIANCE REVIEW OFFICER EXAMINATION (Primary Dx); HYPERLIPIDEMIA NEC/NOS; VAGINITIS NOS; UNSPEC CONSTIPATION Social History Tobacco Use Types Packs/Day Years Used Date Smoking Tobacco: Never Assessed Comments Unknown Sex and Gender Information Value Date Recorded Sex Assigned at Not on file Legal Sex Female 5:22 AM FARM IMPLEMENT ENGINE MECHANIC Gender Identity Not on file Sexual Orientation Not on file documented as of this encounter Plan of Treatment Not on file documented as of this encounter Visit Diagnoses Diagnosis Routine gynecological examination- Primary Other and unspecified hyperlipidemia Vaginitis and vulvovaginitis, unspecified Unspecified constipation documented in this encounter Additional Health Concerns Infection Onset Date Last Indicated Resolved Time R/O COVID-19 10/09/2019 10/09/2019 10/11/2019 1:00 AM CDT COVID-19 10/09/2019 10/09/2019 11/08/2019 8:08 PM CDT documented as of this encounter Care Teams Health Informatics Advisor Relationship Specialty Start Date End Date Henrik Kuo MD [address] [facility] [address] [place] [address] PCP - General Family Practice 11/26/16 documented as of this encounter
--- OUTSIDE RECORDS SUMMARY | 2024-08-04 18:08 | XMS_ITS | Encounter Summary ---
Author Organization [facility] Address [address] [facility] [place] [address] Care Team Providers Care Funeral Home Manager Name Role Phone Henrik Kuo MD Primary Care Provider [phone] [phone] Encounter Details Date Type Department Care Team (Late st Contact Info) Description 08/04/2020 Ancillary Orders [facility] [address] [place] [phone] Marta Amaro, [facility] [address] [place] [address] [place] [phone] Breast cancer screening by mammogram Social History Tobacco Use Types Packs/Day Years Used Date Smoking Tobacco: Never Smokeless Tobacco: Never Alcohol Use Standard Drinks/Week Comments No 0 (1 standard drink = 0.6 oz pur e alcohol) Social Connections Answer Date Recorded In a typical week, how many times do you talk on the phone with family, friends, or neighbors? More than three times a week 12/29/2019 How often do you get togethe r with friends or relatives? Three times a week 12/29/2019 How often do you attend chur ch or pentecostal services? More than 4 times per year 12/29/2019 Do you belong to any clubs o r organizations such as tenriism groups, unions, fraternal or athletic groups, or school groups? Yes 12/29/2019 Attends Club or Organization Meetings Not on ibis e 12/29/2019 Marital Status Not on file 12/29/2019 Financial Resource Strain Answer Date R ecorded How hard is it for you to pa y for the very basics like food, housing, medical care, and heating? Not very hard 12/29/2019 Food Insecurity Answer Date Recorded Within the past 12 months, y ou worried that your food would run out before you got the money to buy more. Never true 12/29/19 20 Within the past 12 months, t he food you bought just didn't last and you didn't have money to get more. Never true 12/29/2019 Transportation Needs Answer Date Record ed In the past 12 months, has l ack of transportation kept you from medical appointments or from getting medications? No 12/12 In the past 12 months, has l ack of transportation kept you from meetings, work, or from getting things needed for daily living? No 12/29/2019 Education Answer Date Recorded What is the highest level of school you have completed or the highest degree you have received? 12th grade 12/29/2019 Comments No Sex and Gender Information Value Date Recorded Sex Assigned at Not on file Legal Sex Female 5:22 AM RUNNING RIGGER Gender Identity Not on file Sexual Orientation Not on file Occupation Industry Job Start Date Job End Date Not on file Not on file Not on file Not on file documented as of this encounter Plan of Treatment Not on file documented as of this encounter Visit Diagnoses Diagnosis Breast cancer screening by mammogram documented in this encounter Additional Health Concerns Assessment Noted Time PHQ-9 Depression Total Score: 3 12/29/19 10:27 AM RUNNING RIGGER documented as of this encounter Care Teams Funeral Home Manager Relationship Specialty Start Date End Date Henrik Kuo MD [address] [facility] [address] [place] [address] PCP - General Family Practice 11/26/16 documented as of this encounter
--- OUTSIDE RECORDS SUMMARY | 2024-08-04 18:08 | XMS_ITS | Encounter Summary ---
Author Organization [facility] Address [address] [facility] [address] Care Team Providers Care Political Theory Professor Name Role Phone Henrik Kuo MD Primary Care Provider [phone] [phone] Encounter Details Date Type Department Care Team (Latest Contact Info) Description 11/10/2003 Outpatient Historical [facility] Family Medicine- [address] [address] [place] [address] Too Navarrete NP NO ADDRESS ON FILE HYPERLIPIDEMIA NEC/NOS (Primary Dx); DERMATITIS NOS; VAGINITIS NOS Social History Tobacco Use Types Packs/Day Years Used Date Smoking Tobacco: Never Assessed Comments Unknown Sex and Gender Information Value Date Recorded Sex Assigned at Not on file Legal Sex Female 5:22 AM BUSINESS OFFICE ASSISTANT Gender Identity Not on file Sexual Orientation Not on file documented as of this encounter Plan of Treatment Not on file documented as of this encounter Visit Diagnoses Diagnosis Other and unspecified hyperlipidemia- Primary Contact dermatitis and other eczema, due to unspecified cause Vaginitis and vulvovaginitis, unspecified documented in this encounter Additional Health Concerns Infection Onset Date Last Indicated Resolved Time R/O COVID-19 10/09/2019 10/09/2019 10/11/2019 1:00 AM CDT COVID-19 10/09/2019 10/09/2019 11/08/2019 8:08 PM CDT documented as of this encounter Care Teams Political Theory Professor Relationship Specialty Start Date End Date Henrik Kuo MD [address] [facility] [address] [place] [address] PCP - General Family Practice 11/26/16 documented as of this encounter
--- OUTSIDE RECORDS SUMMARY | 2024-08-04 18:08 | XMS_ITS | Encounter Summary ---
Author Organization [facility] Address [address] [facility] [place] [address] Care Team Providers Care Upholsterer Apprentice Name Role Phone Henrik Kuo MD Primary Care Provider [phone] [phone] Encounter Details Date Type Department Care Team (Latest Contact Info) Description 07/30/2003 Outpatient Historical [facility] Family Medicine- [address] [place] [address] Jing Swartz MD NO ADDRESS ON FILE GYNECOLOGIC EXAMINATION (Primary Dx) Social History Tobacco Use Types Packs/Day Years Used Date Smoking Tobacco: Never Assessed Comments Unknown Sex and Gender Information Value Date Recorded Sex Assigned at Not on file Legal Sex Female 5:22 AM FABRICATION MACHINE OPERATOR Gender Identity Not on file Sexual Orientation Not on file documented as of this encounter Plan of Treatment Not on file documented as of this encounter Visit Diagnoses Diagnosis Gynecological examination- Primary documented in this encounter Additional Health Concerns Infection Onset Date Last Indicated Resolved Time R/O COVID-19 10/09/2019 10/09/2019 10/11/2019 1:00 AM CDT COVID-19 10/09/2019 10/09/2019 11/08/2019 8:08 PM CDT documented as of this encounter Care Teams Upholsterer Apprentice Relationship Specialty Start Date End Date Henrik Kuo MD [address] [facility] [address] [place] [address] PCP - General Family Practice 11/26/16 documented as of this encounter
--- OUTSIDE RECORDS SUMMARY | 2024-08-04 18:08 | XMS_ITS | Encounter Summary ---
Author Organization [facility] Address [address] [facility] [facility] [place] [place] [address] Care Team Providers Care Flat Lock Machine Operator Name Role Phone Henrik Kuo MD Primary Care Provider [phone] [phone] Encounter Details Date Type Department Care Team (Latest Contact Info) Description 08/22/2007 Outpatient Historical [facility] Family Medicine- [address] [place] [phone] Jing Swartz MD NO ADDRESS ON FILE Routine Gynecological Examination Social History Tobacco Use Types Packs/Day Years Used Date Smoking Tobacco: Never Assessed Comments No Sex and Gender Information Value Date Recorded Sex Assigned at Not on file Legal Sex Female 5:22 AM AGENT 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 Gender Identity Not on file Sexual Orientation Not on file documented as of this encounter Plan of Treatment Not on file documented as of this encounter Procedures Procedure Name Priority Date/Time Associated Diagnosis Comments PATHOLOGY Routine 08/22/2007 6:13 AM CDT documented in this encounter Results * PATHOLOGY (08/22/2007 6:13 AM CDT) PATHOLOGY/CY GUSTAVOOGY REPORT [facility] Anatomic Pathology Dept [address] [facility] [address] Patient: MICHAEL BUCHANAN Accn No: [id number] Collected: 08/22/2007 6:13:00 AM CYTOLOGY ENGLISH DIVISION CHAIR FINAL REPORT - - HAND M[employer]ICAN 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 The smear lacks endocervical or metaplastic cells. Diagnosis NEGATIVE FOR INTRAEPITHELIAL LESION OR MALIGNANCY. (Previously noted as Within Normal Limits) Tower Hand DOLLY 08/28/07 Completed by: MARCIAL HOOPER(ASCP) (Electronically signed by) 08/28/07 Comment Repeat Pap smear within 6-12 months. Important Info About Pap Smears HPV Testing off the Thin Prep vial can be done as a means of further evaluating a Thin Prep Report. For information about ordering the HPV test, phone Cytology at . Treatment or follow-up recommendations (if any) that are considered within this report are based upon general recommendations as contained in 2001 Consensus Guidelines For Cervical Cytological Abnormalities SIMÓN: June 04, 2001, and are provided as a general guideline rather than as a specific recommendation. Final decisions about the most appropriate treatment and follow-up should be made on an individualized basis by the treating physician in consultation with his/her patient. INTERFACE SYSTEM 08/22/2007 6:13 AM CDT us Jing Swartz MD PATHOLOGY/CYTOLOGY ORDERABL ES Final Result INTERFACE SYSTEM Refer to clinic/hospital department documented in this encounter Visit Diagnoses Diagnosis Routine gynecological examination documented in this encounter Additional Health Concerns Infection Onset Date Last Indicated Resolved Time R/O COVID-19 10/09/2019 10/09/2019 10/11/2019 1:00 AM CDT COVID-19 10/09/2019 10/09/2019 11/08/2019 8:08 PM CDT documented as of this encounter Care Teams Flat Lock Machine Operator Relationship Specialty Start Date End Date Henrik Kuo MD [address] [facility] [address] [place] [address] PCP - General Family Practice 11/26/16 documented as of this encounter
--- OUTSIDE RECORDS SUMMARY | 2024-08-04 18:08 | XMS_ITS | Clinical Summary ---
Author Organization [facility] [place] Address [address] [place] [address] Care Team Providers Care Individual Pension Adviser Name Role Phone Henrik Kuo MD Primary Care Provider [phone] [phone] Allergies Active Allergy Reactions Criticality Noted Date Comments Menthol Rash Low 08/26/2015 Penicillins Diarrhea,Nausea and Vomiting Low Sulfa (Sulfonamide Antibiotics) Rash Low 11/20/2017 Unclassified Drug Swelling Low 08/26/2015 Medications citalopram (CELEXA) 40 mg tablet Take 40 mg by mouth daily at bedtime. 6 Active propranolol (INDERAL) 10 mg tablet Take 10 mg by mouth daily. 6 Active Cholecalciferol, Vitamin D3, 2,000 unit Capsule Take 1 Capsule by mouth daily at bedtime. Active nystatin (MYCOSTATIN) 100,000 unit/gram CreamIndications:Ca ndida infection Apply to affected area 2 times daily. 15 Gram 1 7 Active venlafaxine (EFFEXOR) 75 mg tablet Take 75 mg by mouth daily Takes with 150 mg daily . Active venlafaxine (EFFEXOR XR) 150 mg Extended Release 24 hour capsule Take 150 mg by mouth daily Takes with 75 mg daily . Active ARIPiprazole (ABILIFY) 5 mg tablet Take 5 mg by mouth daily. Active albendazole (ALBENZA) 200 mg tabletIndications:P inworms 400 mg orally once on empty stomach; repeat in two weeks 4 Tablet 1 9 Active polyethylene glycol (MIRALAX) 17 gram Powder in PacketIndications:C onstipation, unspecified constipation type Take 1 Packet (17 Grams) by mouth 2 times daily as needed for Constipation . 6 Packet 1 0 Active atorvastatin (LIPITOR) 40 mg tabletIndications:M ixed hyperlipidemia TAKE 1 TABLET BY MOUTH ONCE DAILY WITH SUPPER 90 Tablet 1 Active Active Problems Problem Noted Date Diagnosed Date Morbid obesity with body mass index of 40.0-49.9 12/29/2019 GERD (gastroesophageal reflux disease) 1 S/p left nephrectomy 12/23/2009 Overview (12/30/2009): Left nephrectomy due to obstructive pyelonephritis with multiple stones on 06-01-04 Dr. Grant Stinson Recurrent major depressive disorder Overview (01/01/2020): CHANGED PER PVQ RESPONSE DOS 12.29.2019 Hyperlipidemia Schizophrenia Resolved Problems Problem Noted Date Diagnosed Date Resolved Date Chronic obstructive pyelonephritis 12/30/2009 12/30/2009 Overview (12/30/2009): Left nephrectomy due to obstructive pyelonephritis on 06-01-04 Dr. Grant Stinson Immunizations Immunization Administration Dates Next Due (PNEUMOVAX 23)(50 YRS UP) PN EUMOCOCCAL POLYSACCHARIDE (PPV23) 0.5 ML, IM 11/29/2006 (TDVAX)(7 YRS UP) TETANUS AN D DIPHTHERIA TOXOIDS, ADSORBED (2 LF OF TETANUS TOXOID AND 2 LF OF DIPHTHERIA TOXOID), 0.5ML (PF), IM 06/24/2001 INFLUENZA VACCINE QUADRIVALE NT 3 YR UP PF IM 11/20/2017,10/13/2015,11/12/2014 INFLUENZA VACCINE QUADRIVALE NT 6 MOS UP IM 11/25/2018 INFLUENZA VACCINE QUADRIVALE NT 6 MOS UP PF IM 12/04/2019 Influenza Seasonal Unspecifi ed Formulation IM 11/21/2016,11/20/2013,11/28/2006,11/16 Pneumococcal 13-sidney Conj Vac c Patient Supplied [...] 12/29/2019 How often do you attend chur or rastafarian services? More than 4 times per year 12/29/2019 Do you belong to any clubs o r organizations such as uatsdin groups, unions, fraternal or athletic groups, or [...] on file Legal Sex Female 5:22 AM WEEDER THINNER Gender Identity Not on file Sexual Orientation Not on file Occupation Industry Job Start Date Job End Date Not on file Not on file Not on file Not on file Last Filed Vital Signs Vital Sign Reading Time Taken Comments Blood Pressure 120/72 12/29/2019 10:21 AM WEEDER THINNER Pulse 80 12/29/2019 10:21 AM WEEDER THINNER Temperature 36.3 C (97.3 F) 12/29/2019 10:21 AM WEEDER THINNER Respiratory Rate 18 12/29/2019 10:2 1 AM WEEDER THINNER Oxygen Saturation 98% 12/29/2019 10: 21 AM WEEDER THINNER Inhaled Oxygen Concentration - - Weight 115.9 kg (255 lb 9.6 oz) 020 10:21 AM WEEDER THINNER Height 160 cm (5' 3 ) 12/29/2019 10:21 AM WEEDER THINNER Body Mass Index 45.28 12/29/2019 10:21 AM WEEDER THINNER Plan of Treatment Health Maintenance Due Date Last Done Comments FIT/ DNA Q 3 YEARS (AUTO ORDER) 1982 FIT/FOBT Q 1 YEAR (AUTO ORDER) 1982 FLEX SIG/CT COLONOGRAPHY Q 5 YEARS (AUTO ORDER) 1982 DTAP/TDAP/TD VACCINES (1 - Tdap) 06/25/2001 06/24/2001 FIT-DNA Q 3 years 2009 FIT/FOBT Q 1 year 2009 Flex Sig/CT Colonography Q 5 years 2009 ZOSTER VACCINE (1 of 2) 2014 CERVICAL CANCER SCREENING 04/16/2017 PAP SMEAR 04/16/2017 04/16/2014, 09/12, 08/22/2007, Additional history exists HPV/Cotest (21-29) 04/17/2019 04/16/2014 HPV/Cotest (30-65) 04/17/2019 04/16/2014 Pre-Diabetes and Diabetes Screening 11/17/2019 11/16/2016 BREAST CANCER SCREENING 01/17/2023 01/18/20 22, 09/02/2019, 05/29/2018, Additional history exists INFLUENZA VACCINE (#1) 2023 0, 11/25/2018, 11/20/2017, Additional history exists Medicare Advantage ([place]) Preventative Visit/Annual Wellness Visit 02/12/2024 12/29/2019, 05/23/2018, 08/17/2011, Additional history exists RSV VACCINE (60+ or ) (1 - Risk 60-74 years 1-dose series) 2024 COLORECTAL CANCER SCREENING (AUTO ORDER) 04/26/2024 04/26/2014 COLORECTAL SCREENING 04/26/2024 04/26/2014 Colorectal Cancer Screening (AUTO ORDER) 04/26/2024 Colorectal Cancer Screening 04/26/2024 HEPATITIS B VACCINES Aged Out No long er eligible based on patient's age to complete this topic Procedures Procedure Name Priority Date/Time Associated Diagnosis Comments MAMMO SCREEN BILAT W OR WO CAD Routine 09/02/2019 1:42 PM CDT Screening mammogram, encounter for HEMOGLOBIN A1C Routine 11/16/2016 CERV/VAG CYTOPATH, THIN PREP IMAGR RFLX HPV Routine 04/16/2014 10:03 AM WEEDER THINNER from Last 3 Months or Most Recently Relevant to Health Maintenance Results * MAMMO SCREEN BILAT W OR WO CAD (09/02/2019 1:42 PM CDT) Anatomical Region Laterality Modality Breast Bilateral Mammography Narrative 09/02/2019 4:45 PM CDT Bilateral Mammogram Reason for Exam: Screening Comparison: Compared to: 05/29/2018 MAMMO SCREEN BILAT W OR WO CAD, 04/11/2017 MAMMO SCREEN BILAT W OR WO CAD, 04/05/2016 MAMMO SCREEN BILAT W OR WO CAD, 11/09/2014 MAMMO DIGITAL SCREEN BILAT, 10/20/2013 MAMMO DIGITAL SCREEN BILAT, 09/23/2012 MAMMO DIGITAL SCREEN BILAT, and 09/19/2011 MAMMO DIGITAL SCREEN BILAT Findings: Bilateral CC and MLO views were obtained. This examination was reviewed with the aid of a computer-aided detection system(CAD). Breast Composition: The breasts are heterogeneously dense, which may obscure small masses. There are no suspicious masses, areas of architectural distortions, or microcalcifications to suggest malignancy. No significant new findings since the prior mammogram(s). Impression: Negative screening mammogram. Recommendation: Routine annual follow-up Overall Assessment: Birads Category 2: Benign Marta Amaro SHAREPOINT ADMIN MAMMO ORDERABLES Final Result * HEMOGLOBIN A1C (11/16/2016) ABSTRACTED HGB A1C 5.2 EXTERNAL LAB HEMOGLOBIN A1C 4.7 - 6.4 % EXTERNAL LAB HEMOGLOBIN A1C EXTERNAL LAB GLUCOSE, MEAN BLOOD EXTERNAL LAB Blood 11/16/2016 us Abstract Spg Provider CHEMISTRY ORDERABLES Final Result EXTERNAL LAB * CERV/VAG CYTOPATH, THIN PREP IMAGR RFLX HPV (04/16/2014 10:03 AM WEEDER THINNER) BOBBIN WASHER CYTOLOGY REPORT REFLEX HPV [facility] Anatomic Pathology Dept [address] [facility] [address] Patient: MICHAEL BUCHANAN Accn No: [id number] , [id number] Collected: 04/16/2014 10:03:00 AM All cases except those with a DP prefix are performed by pathologists from [facility] at [facility]. Case type DP is performed by Dr. Ever Reilly, [facility], [facility], [address], [place] [address] (CLIA #[id number]) (Ph. [phone]). BOBBIN WASHER PAP - REFLEX HPV History Specimen Type: Endocervical postmenopausal Previous Pap History: 2012 PER PT Specimen Adequacy Satisfactory for interpretation. The smear lacks endocervical or metaplastic cells. Diagnosis NEGATIVE FOR INTRAEPITHELIAL LESION OR MALIGNANCY. (Previously noted as Within Normal Limits). Weaver Needle Loom/ SATHYAM Pathologist: 04/21/14 Completed by: MARCIAL HOOPER BSCT(ASCP) (Electronically signed by) 04/21/14 Comment Routine follow-up is suggested. Important Information About Pap Smears The Pap smear is associated with a low but well-documented and probably irreducible false negative rate of up to 10%. Additionally, the false positive rate for a diagnosis of invasive carcinoma or HSIL has been estimated to be approximately 1-10%. Therefore, any visible lesion on the cervix should be biopsied regardless of Pap smear findings. HPV Testing off the Thin Prep vial can be done as a means of further evaluating a Thin Prep Report. For information about ordering the HPV test, phone Virology at . Treatment or follow-up recommendations (if any) that are contained within this report are based upon general recommendations as contained in 2001 Consensus Guidelines For Cervical Cytological Abnormalities SIMÓN: June 04, 2001, and are provided as a general guideline rather than as a specific recommendation. Final decisions about the most appropriate treatment and follow-up should be made on an individualized basis by the treating physician in consultation with his/her patient. [facility] 04/16/2014 10:0 3 AM WEEDER THINNER us Nancy Varela MD PATHOLOGY/CYTOLOGY ORDERABL ES Edited Result - Final [facility] CLIA# [id number] [address] [place] [address] from Last 3 Months or Most Recently Relevant to Health Maintenance Insurance MEDICAID [facility] DUAL COMPLETE [facility] PPO D-SNP Care Teams Individual Pension Adviser Relationship Specialty Start Date End Date Henrik Kuo MD [address] [address] PCP - General Family Practice 11/26/16
--- OUTSIDE RECORDS SUMMARY | 2024-08-04 18:08 | XMS_ITS | Encounter Summary ---
Author Organization [facility] Address [address] [facility] [place] [address] Care Team Providers Care Butcher Supervisor Name Role Phone Henrik Kuo MD Primary Care Provider [phone] [phone] Encounter Details Date Type Department Care Team (Latest Contact Info) Description 08/09/2006 Outpatient Historical [facility] Family Medicine- [place] [address] [place] [address] Jing Swartz MD NO ADDRESS ON FILE Unspecified Vaginitis and Vulvovaginitis (Primary Dx); Routine Gynecological Examination Social History Tobacco Use Types Packs/Day Years Used Date Smoking Tobacco: Never Assessed Comments Unknown Sex and Gender Information Value Date Recorded Sex Assigned at Not on file Legal Sex Female 5:22 AM 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 Gender Identity Not on file Sexual Orientation Not on file documented as of this encounter Plan of Treatment Not on file documented as of this encounter Visit Diagnoses Diagnosis Vaginitis and vulvovaginitis, unspecified- Primary Routine gynecological examination documented in this encounter Additional Health Concerns Infection Onset Date Last Indicated Resolved Time R/O COVID-19 10/09/2019 10/09/2019 10/11/2019 1:00 AM CDT COVID-19 10/09/2019 10/09/2019 11/08/2019 8:08 PM CDT documented as of this encounter Care Teams Butcher Supervisor Relationship Specialty Start Date End Date Henrik Kuo MD [address] [facility] [address] [place] [address] PCP - General Family Practice 11/26/16 documented as of this encounter
--- OUTSIDE RECORDS SUMMARY | 2024-08-04 18:08 | XMS_ITS | Encounter Summary ---
Author Organization [facility] Address [address] [place] [address] Care Team Providers Care Maintenance Machine Repairer Name Role Phone Henrik Kuo MD Primary Care Provider [phone] [phone] Reason for Referral * Radiology Services (Routine) - Closed Specialty Diagnoses / Procedures Referred By Contnayan t Referred To Contact Radiology Diagnoses Inconclusive mammogram Procedures MAMMO BREAST US BILAT LTD Marta Amaro FNP Phone: tel: fax: [facility] [address] [place] [address] Phone: tel: fax: Referral ID Status Reason Start Date Expiration Date Visits Requested Visits Authorized [id number] Closed Performing Department To Schedule (SGF) 06/02/2018 07/03/2019 1 1 Encounter Details Date Type Department Care Team (Latest Contact Info) Description 06/02/2018 Ancillary Orders [facility] [address] [place] [address] Marta Amaro FNP [address] [place] [address] Inconclusive mammogram Social History Tobacco Use Types Packs/Day Years Used Date Smoking Tobacco: Never Smokeless Tobacco: Never Alcohol Use Standard Drinks/Week Comments No 0 (1 standard drink = 0.6 oz pur e alcohol) Comments No Sex and Gender Information Value Date Recorded Sex Assigned at Not on file Legal Sex Female 5:22 AM TELEVISION SCRIPT WRITER Gender Identity Not on file Sexual Orientation Not on file Occupation Industry Job Start Date Job End Date Not on file Not on file Not on file Not on file documented as of this encounter Plan of Treatment Not on file documented as of this encounter Results * MAMMO BREAST US [employer] (06/16/2018 1:06 PM CDT) Anatomical Region Laterality Modality Bilateral Ultrasound 06/16/2018 1:06 PM CDT Impressions 06/17/2018 10:40 AM CDT : Simple cyst in the left breast. Fatty tissue with minimal skin thickening of the right axilla appears mammographically stable. Clinical follow-up is recommended. No mammographic or sonographic evidence of malignancy. The patient was given verbal and written results/recommendations. BI-RADS ASSESSMENT: 2 - Benign RECOMMENDATION: Annual screening mammography [id number] Narrative 06/17/2018 10:40 AM CDT EXAM: MAMMO BREAST [facility] [employer] INDICATION: 53-year-old female presents for diagnostic workup of a mass in the upper inner quadrant at the left breast. In addition, the area marked with a BB at the time of screening mammography in the right axilla that the patient states is a fatty area will be evaluated with targeted ultrasound. COMPARISON: Mammogram 05/29/2018, 04/11/2017, 04/05/2016, 11/09/2014, 10/20/2013, 09/23/2012, 09/19/2011 ULTRASOUND TECHNIQUE: Multiple real-time arzate-scale images of the upper inner quadrant of the left breast and the right axilla are performed. Color Doppler was used to assess vascular flow. FINDINGS: In the left breast at 10:00, 3 cm from the nipple, there is a simple cyst which measures 2.0 x 0.9 x 2.0 cm. No suspicious solid or cystic masses are identified. In the right axilla, normal fatty tissue is identified. She does have minimal focal skin thickening which is likely chronic. No redness or signs of infection. No edema is seen. No axillary adenopathy is identified. The appearance of the right axillary tissue is mammographically stable. Martamarjorie Amaro FOREST BOTANY INSTRUCTOR MAMMO ORDERABLES Final Result documented in this encounter Visit Diagnoses Diagnosis Inconclusive mammogram Inconclusive mammogram documented in this encounter Additional Health Concerns Infection Onset Date Last Indicated Resolved Time R/O COVID-19 10/09/2019 10/09/2019 10/11/2019 1:0 0 AM CDT COVID-19 10/09/2019 10/09/2019 11/08/2019 8:08 PM CDT documented as of this encounter Care Teams Maintenance Machine Repairer Relationship Specialty Start Date End Date Henrik Kuo MD [address] [address] PCP - General Family Practice 11/26/16 documented as of this encounter
--- OUTSIDE RECORDS SUMMARY | 2024-08-04 18:08 | XMS_ITS | Encounter Summary ---
Author Organization [facility] Address [address] [facility] [place] [address] Care Team Providers Care Outboard Motors Experimental Mechanic Name Role Phone Henrik Kuo MD Primary Care Provider [phone] [phone] Encounter Details Date Type Department Care Team (Latest Contact Info) Description 03/26/2005 Outpatient Historical [facility] Family Medicine- [place] [address] [place] [address] Jing Swartz MD NO ADDRESS ON FILE HELMINTHIASIS NOS (Primary Dx) Social History Tobacco Use Types Packs/Day Years Used Date Smoking Tobacco: Never Assessed Comments Unknown Sex and Gender Information Value Date Recorded Sex Assigned at Not on file Legal Sex Female 5:22 AM HOG TRADER Gender Identity Not on file Sexual Orientation Not on file documented as of this encounter Plan of Treatment Not on file documented as of this encounter Visit Diagnoses Diagnosis Helminth infection, unspecified- Primary documented in this encounter Additional Health Concerns Infection Onset Date Last Indicated Resolved Time R/O COVID-19 10/09/2019 10/09/2019 10/11/2019 1:00 AM CDT COVID-19 10/09/2019 10/09/2019 11/08/2019 8:08 PM CDT documented as of this encounter Care Teams Outboard Motors Experimental Mechanic Relationship Specialty Start Date End Date Henrik Kuo MD [address] [facility] [address] [place] [address] PCP - General Family Practice 11/26/16 documented as of this encounter
--- OUTSIDE RECORDS SUMMARY | 2024-08-04 18:08 | XMS_ITS | Encounter Summary ---
Author Organization [facility] Address [address] [facility] [address] [facility] [place] [address] Care Team Providers Care Mid Level Practitioner Name Role Phone Henrik Kuo MD Primary Care Provider +1 -[phone] Encounter Details Date Type Department Care Team (Latest Contact Info) Description 11/10/2003 Outpatient Historical [facility] Family Medicine- [address] [place] [address] Too Navarrete NP NO ADDRESS ON FILE HYPERLIPIDEMIA NEC/NOS (Primary Dx) Social History Tobacco Use Types Packs/Day Years Used Date Smoking Tobacco: Never Assessed Comments Unknown Sex and Gender Information Value Date Recorded Sex Assigned at Not on file Legal Sex Female 5:22 AM FOLDER MACHINE Gender Identity Not on file Sexual Orientation [...] documented as of this encounter Care Teams Mid Level Practitioner Relationship Specialty Start Date End Date Henrik Kuo MD [address] [facility] [address] [place] [address] PCP - General Family Practice 11/26/16 documented as of this encounter
--- OUTSIDE RECORDS SUMMARY | 2024-08-04 18:08 | XMS_ITS | Encounter Summary ---
Author Organization [facility] Address [address] [facility] [address] Care Team Providers Care Welder Tech Name Role Phone Henrik Kuo MD Primary Care Provider +1 [phone] Encounter Details Date Type Department Care Team ([facility] st Contact Info) Description 09/02/2008 Ancillary Orders [facility] Imaging External Read [address] [place] [address] Jing Swartz MD NO ADDRESS ON FILE Screening Mammogram Social History Tobacco Use Types Packs/Day Years Used Date Smoking Tobacco: Never Alcohol Use Standard Drinks/Week Comments No 0 (1 standard drink = 0.6 oz pur e alcohol) Comments No Sex and Gender Information Value Date Recorded Sex Assigned at Not on file Legal Sex Female 5:22 AM ANESTHESIOLOGY FELLOW Gender Identity Not on file Sexual Orientation Not on file documented as of this encounter Plan of Treatment Not on file documented as of this encounter Results * MAMMO SCREENING BILAT (09/02/2008 2:25 PM CDT) Anatomical Region Laterality Modality Breast Bilateral Mammography Narrative 09/03/2008 10:13 AM CDT Bilateral Mammogram Reason for Exam: Screening Comparison: Comparison is made with the prior exam(s) dated 17.08, 715.05, 818.05. Findings: Bilateral CC and MLO views were obtained. This examination was reviewed with the aid of a computer-aided detection system(CAD). The breast tissue is very dense. No significant new findings since the prior mammogram(s). Procedure Note Tuyet Aden MD - 09/03/2008 Bilateral Mammogram Reason for Exam: Screening Comparison: Comparison is made with the prior exam(s) dated 08.28.07,7, 8. Findings: Bilateral CC and MLO views were obtained. This examination was reviewed with the aid of a computer-aided detectionsystem(CAD). The breast tissue is very dense. No significant new findings since the prior mammogram(s). us Jing Swartz MD MAMMO ORDERABLES Final Resu lt documented in this encounter Visit Diagnoses Diagnosis Screening mammogram Other screening mammogram documented in this encounter Additional Health Concerns Infection Onset Date Last Indicated Resolved Time R/O COVID-19 10/09/2019 10/09/2019 10/11/2019 1:00 AM CDT COVID-19 10/09/2019 10/09/2019 11/08/2019 8:08 PM CDT documented as of this encounter Care Teams Welder Tech Relationship Specialty Start Date End Date Henrik Kuo MD [address] [facility] [address] [place] [address] PCP - General Family Practice 11/26/16 documented as of this encounter
--- OUTSIDE RECORDS SUMMARY | 2024-08-04 18:08 | XMS_ITS | Encounter Summary ---
Author Organization [facility] Address [address] [facility] [place] [address] Care Team Providers Care Billing Customer Service Representative Name Role Phone Henrik Kuo MD Primary Care Provider +1 [phone] Encounter Details Date Type Department Care Team (Latest Contact Info) Description 08/18/[address] 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 Gender Identity Not on file Sexual Orientation Not on file documented as of this encounter Plan of Treatment Not on file documented as of this encounter Visit Diagnoses Diagnosis Dermatitis due to plant- Primary Contact dermatitis and other eczema due to plants (except food) Other disorder of menstruation and other abnormal bleeding from female genital tract Other and unspecified hyperlipidemia documented in this encounter Additional Health Concerns Infection Onset Date Last Indicated Resolved Time R/O COVID-19 10/09/2019 10/09/2019 10/11/2019 1:00 AM CDT COVID-19 10/09/2019 10/09/2019 11/08/2019 8:08 PM CDT documented as of this encounter Care Teams Billing Customer Service Representative Relationship Specialty Start Date End Date Henrik Kuo MD [address] [facility] [address] [place] [phone] PCP - General Family Practice 11/26/16 documented as of this encounter
--- OUTSIDE RECORDS SUMMARY | 2024-08-04 18:08 | XMS_ITS | Encounter Summary ---
Author Organization [facility] Address [address] [facility] [place] [address] Care Team Providers Care Lead Electrician Name Role Phone Henrik Kuo MD Primary Care Provider +1 [phone] Encounter Details Date Type Department Care Team (Latest Contact Info) Description 07/30/2003 Outpatient Historical [facility] Family Medicine- [address] [place] [address] Jing Swartz MD NO ADDRESS ON FILE Gynecologic examination (Primary Dx) Social History Tobacco Use Types Packs/Day Years Used Date Smoking Tobacco: Never Assessed Comments Unknown Sex and Gender Information Value Date Recorded Sex Assigned at Not on file Legal 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 Female 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 Gender Identity Not on file Sexual Orientation Not on file documented as of this encounter Plan of Treatment Not on file documented as of this encounter Visit Diagnoses Diagnosis Gynecologic examination- Primary Gynecological examination documented in this encounter Additional Health Concerns Infection Onset Date Last Indicated Resolved Time R/O COVID-19 10/09/2019 10/09/2019 10/11/2019 1:00 AM CDT COVID-19 10/09/2019 10/09/2019 11/08/2019 8:08 PM CDT documented as of this encounter Care Teams Lead Electrician Relationship Specialty Start Date End Date Henrik Kuo MD [address] [facility] [address] [place] [address] PCP - General Family Practice 11/26/16 documented as of this encounter
--- OUTSIDE RECORDS SUMMARY | 2024-08-04 18:08 | XMS_ITS | Encounter Summary ---
Author Organization [facility] Address [address] [facility] [address] Care Team Providers Care Vp Global Marketing [employer] Name Role Phone Henrik Kuo MD Primary Care Provider +1 [phone] Encounter Details Date Type Department Care Team (Latest Contact Info) Description 01/30/2006 Outpatient Historical [facility] Family Medicine- [address] [place] [address] Too Navarrete NP NO ADDRESS ON FILE Other and Unspecified Hyperlipidemia (Primary Dx) Social History Tobacco Use Types Packs/Day Years Used Date Smoking Tobacco: Never Assessed Comments Unknown Sex and Gender Information Value Date Recorded Sex Assigned at Not on file Legal Sex Female 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
--- OUTSIDE RECORDS SUMMARY | 2024-08-04 18:08 | XMS_ITS | Encounter Summary ---
Author Organization [facility] Address [address] [place] [address] Care Team Providers Care Rodeo Performer Name Role Phone Henrik Kuo MD Primary Care Provider +1 [phone] Encounter Details Date Type Department Care Team (Late st Contact Info) Description 01/27/2007 Outpatient Historical [facility] Family Medicine- [address] [place] [address] Jing Swartz MD NO ADDRESS ON FILE Social History Tobacco Use Types Packs/Day Years Used Date Smoking Tobacco: Never Assessed Comments Unknown Sex and Gender Information Value Date Recorded Sex Assigned at Not on file Legal Sex Female 5:22 AM DENIAL MANAGEMENT REPRESENTATIVE Gender Identity Not on file Sexual Orientation [...] documented as of this encounter Care Teams Rodeo Performer Relationship Specialty Start Date End Date Henrik Kuo MD [address] [facility] [address] [place] [address] PCP - General Family Practice 11/26/16 documented as of this encounter
--- OUTSIDE RECORDS SUMMARY | 2024-08-04 18:08 | XMS_ITS | Encounter Summary ---
Author Organization [facility] Address [address] [facility] [place] [address] Care Team Providers Care Psychology Fellow Name Role Phone Henrik Kuo MD Primary Care Provider +1 -[phone] Encounter Details Date Type Department Care Team (Late st Contact Info) Description 09/23/2012 Ancillary Orders [facility] Family Medicine- [address] [place] [address] Luli Faulkner APRN NO ADDRESS ON FILE Other screening mammogram (Primary Dx) Social History Tobacco Use Types Packs/Day Years Used Date Smoking Tobacco: Never Smokeless Tobacco: Never Alcohol Use Standard Drinks/Week Comments No 0 (1 standard drink = 0.6 oz pur e alcohol) Comments No Sex and Gender Information Value Date Recorded Sex Assigned at Not on file 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 Exam was [...] documented as of this encounter Care Teams Psychology Fellow Relationship Specialty Start Date End Date Henrik Kuo MD [facility] [address] [phone] PCP - General Family Practice 11/26/16 documented as of this encounter
--- OUTSIDE RECORDS SUMMARY | 2024-08-04 18:08 | XMS_ITS | Encounter Summary ---
Author Organization [facility] Address [address] [place] [address] Care Team Providers Care Sample Steamer Name Role Phone Henrik Kuo MD Primary Care Provider +1 -[phone] Encounter Details Date Type Department Care Team (Latest Contact Info) Description 11/17/2003 Outpatient Historical [facility] Family Medicine- [address] [place] [address] Too Navarrete NP NO ADDRESS ON FILE Vaccine for influenza (Primary Dx) Social History Tobacco Use Types Packs/Day Years Used Date Smoking Tobacco: Never Assessed Comments Unknown Sex and Gender Information Value Date Recorded Sex Assigned at Not on file Legal 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 Gender Identity Not on file Sexual Orientation Not on file documented as of this encounter Plan of Treatment Not on file documented as of this encounter Visit Diagnoses Diagnosis Vaccine for influenza- Primary Need for prophylactic vaccination and inoculation against influenza documented in this encounter Additional Health Concerns Infection Onset Date Last Indicated Resolved Time R/O COVID-19 10/09/2019 10/09/2019 10/11/2019 1:00 AM CDT COVID-19 10/09/2019 10/09/2019 11/08/2019 8:08 PM CDT documented as of this encounter Care Teams Sample Steamer Relationship Specialty Start Date End Date Henrik Kuo MD [address] [facility] [address] [place] [address] PCP - General Family Practice 11/26/16 documented as of this encounter
--- OUTSIDE RECORDS SUMMARY | 2024-08-04 18:08 | XMS_ITS | Encounter Summary ---
Author Organization [facility] Address [address] [facility] [place] [address] Care Team Providers Care Mdm Sr Name Role Phone Henrik Kuo MD Primary Care Provider +1 -[phone] Encounter Details Date Type Department Care Team (Latest Contact Info) Description 11/29/2006 Outpatient Historical [facility] Family Medicine- [address] [place] [address] Jing Swartz MD NO ADDRESS ON FILE Unspecified Vaginitis and Vulvovaginitis (Primary Dx); Vaccin Strep Pneumoniae Social History Tobacco Use Types Packs/Day Years Used Date Smoking Tobacco: Never Assessed Comments Unknown Sex and Gender Information Value Date Recorded Sex Assigned at Not on file Legal 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 Gender Identity Not on file Sexual Orientation Not on file documented as of this encounter Plan of Treatment Not on file documented as of this encounter Visit Diagnoses Diagnosis Vaginitis and vulvovaginitis, unspecified- Primary Need for prophylactic vaccination against Streptococcus pneumoniae (pneumococcus) Need for prophylactic vaccination against streptococcus pneumoniae (pneumococcus) documented in this encounter Additional Health Concerns Infection Onset Date Last Indicated Resolved Time R/O COVID-19 10/09/2019 10/09/2019 10/11/2019 1:00 AM CDT COVID-19 10/09/2019 10/09/2019 11/08/2019 8:08 PM CDT documented as of this encounter Care Teams Mdm Sr Relationship Specialty Start Date End Date Henrik Kuo MD [address] [phone] PCP - General Family Practice 11/26/16 documented as of this encounter
--- OUTSIDE RECORDS SUMMARY | 2024-08-04 18:08 | XMS_ITS | Encounter Summary ---
Author Organization [facility] Address [address] [facility] [place] [address] Care Team Providers Care Degreasing Solution Mixer Name Role Phone Henrik Kuo MD Primary Care Provider +1 -[phone] Encounter Details Date Type Department Care Team (Late st Contact Info) Description 10/20/2013 Ancillary Orders [facility] Medicine [address] [address] Nancy Varela MD [address] [address] Other screening mammogram (Primary Dx) Social History Tobacco Use Types Packs/Day Years Used Date Smoking Tobacco: Never Smokeless Tobacco: Never Alcohol Use Standard Drinks/Week Comments No 0 (1 standard drink = 0.6 oz pur e alcohol) Comments No Sex and Gender Information Value Date Recorded Sex Assigned at Not on file Legal Sex Female 5:22 AM 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 Exam was auto-finalized. Procedure Note Ayanna Mensah, RT - 10/20/2013 Order information only. Exam was auto-finalized. us Nancy Varela MD DIAGNOSTIC IMAGING ORDERABL ES Final Result documented in this encounter Visit Diagnoses Diagnosis Other screening mammogram- Primary Other screening mammogram documented in this encounter Additional Health Concerns Infection Onset Date Last Indicated Resolved Time R/O COVID-19 10/09/2019 10/09/2019 10/11/2019 1:00 AM CDT COVID-19 10/09/2019 10/09/2019 11/08/2019 8:08 PM CDT documented as of this encounter Care Teams Degreasing Solution Mixer Relationship Specialty Start Date End Date Henrik Kuo MD [address] [phone] PCP - General Family Practice 11/26/16 documented as of this encounter
--- OUTSIDE RECORDS SUMMARY | 2024-08-04 18:08 | XMS_ITS | Encounter Summary ---
Author Organization [facility] Address [address] [place] [address] Care Team Providers Care Optical Scientist Name Role Phone Henrik Kuo MD Primary Care Provider +1 -[phone] Encounter Details Date Type Department Care Team (Latest Contact Info) Description 01/10/2005 Outpatient Historical [facility] Family Medicine- [address] [place] [address] Too Navarrete NP NO ADDRESS ON FILE ACUTE SINUSITIS NOS (Primary Dx); ACUTE PHARYNGITIS Social History Tobacco Use Types Packs/Day Years Used Date Smoking Tobacco: Never Assessed Comments Unknown Sex and Gender Information Value Date Recorded Sex Assigned at Not on file Legal 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 Female 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 Gender Identity Not on file Sexual Orientation Not on file documented as of this encounter Plan of Treatment Not on file documented as of this encounter Visit Diagnoses Diagnosis Acute sinusitis, unspecified- Primary Acute pharyngitis documented in this encounter Additional Health Concerns Infection Onset Date Last Indicated Resolved Time R/O COVID-19 10/09/2019 10/09/2019 10/11/2019 1:00 AM CDT COVID-19 10/09/2019 10/09/2019 11/08/2019 8:08 PM CDT documented as of this encounter Care Teams Optical Scientist Relationship Specialty Start Date End Date Henrik Kuo MD [address] [facility] [address] [place] [address] PCP - General Family Practice 11/26/16 documented as of this encounter
--- OUTSIDE RECORDS SUMMARY | 2024-08-04 18:08 | XMS_ITS | Encounter Summary ---
Author Organization [facility] Address [address] [place] [address] Care Team Providers Care Welcome Hostess Name Role Phone Henrik Kuo MD Primary Care Provider +1 -[phone] Encounter Details Date Type Department Care Team (Late st Contact Info) Description 03/10/2007 Outpatient Historical [facility] Family Medicine- [address] [place] [address] Jing Swartz MD NO ADDRESS ON FILE Social History Tobacco Use Types Packs/Day Years Used Date Smoking Tobacco: Never Assessed Comments Unknown Sex and Gender Information Value Date Recorded Sex Assigned at Not on file Legal Sex Female 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
--- OUTSIDE RECORDS SUMMARY | 2024-08-04 18:08 | XMS_ITS | Encounter Summary ---
Author Organization [facility] Address [address] [facility] [place] [address] Care Team Providers Care Formulator Compounder Name Role Phone Henrik Kuo MD Primary Care Provider +1 -[phone] Encounter Details Date Type Department Care Team (Late st Contact Info) Description 10/20/2013 Ancillary Orders [facility] Medicine [address] [address] Nancy Varela MD [address] [address] Other screening mammogram (Primary Dx) Social History Tobacco Use Types Packs/Day Years Used Date Smoking Tobacco: Never Smokeless Tobacco: Never Alcohol Use Standard Drinks/Week Comments No 0 (1 standard drink = 0.6 oz pur e alcohol) Comments No Sex and Gender Information Value Date Recorded Sex Assigned at Not on file Legal Sex Female 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 Exam was [...] documented as of this encounter Care Teams Formulator Compounder Relationship Specialty Start Date End Date Henrik Kuo MD [address] [phone] PCP - General Family Practice 11/26/16 documented as of this encounter
--- OUTSIDE RECORDS SUMMARY | 2024-08-04 18:08 | XMS_ITS | Encounter Summary ---
Author Organization [facility] Address [address] [place] [address] Care Team Providers Care Heel Dipper Name Role Phone Henrik Kuo MD Primary Care Provider +1 -[phone] Reason for Visit * Reason Onset Date Comments Results 08/02/2024 Encounter Details Date Type Department Care Team ([facility] Contact Info) Description 08/02/2024 Results Follow-Up [facility] [address] [place] [address] [place] [address] [place] [address] Marta Amaro FNP [address] [facility] [place] [address] MAMMO 3D ANGELIQUE SCREEN BILAT W OR WO CAD Social History Tobacco Use Types Packs/Day Years [...] on file Legal Sex Female 5:09 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 Voiced understanding. Bindu MEADE * Telephone Encounter - Bindu Mortensen RN - 08/03/2024 8:56 AM CDT ----- Message from Marta Amaro sent at 08/02/2024 5:10 PM CDT ----- Please call and let patient know that we have her mammogram results back. The breast tissue is dense which can obscure the detection of small masses. They are negative for any suspicious masses, calcifications, or architectural distortions concerning for malignancy. Encourage to follow up annually for repeat testing. NEREYDA Daniels, 08/02/2024 5:10 PM documented in this encounter Plan of Treatment Upcoming Encounters Date Type Department Care Team (Late st Contact Info) Description 01/22/2025 10:00 AM ARCHITECTURAL JOB CAPTAIN Office Visit [facility] [employer] [address] [employer] [address] [place] [address] Marta Amaro FNP [address] [place] [address] documented as of this encounter Visit Diagnoses Not on filedocumented in this encounter Additional Health Concerns Assessment Noted Time PHQ-9 Depression Total Score: 3 07/04/19 25 9:36 AM CDT documented as of this encounter Care Teams Heel Dipper Relationship Specialty Start Date End Date Henrik Kuo MD [address] [phone] PCP - General Family Practice 01/23/21 documented as of this encounter
--- OUTSIDE RECORDS SUMMARY | 2024-08-04 18:08 | XMS_ITS | Encounter Summary ---
Author Organization [facility] Address [address] [facility] [facility] [place] [address] Care Team Providers Care Vegetable Grader Name Role Phone Henrik Kuo MD Primary Care Provider +1 [phone] Encounter Details Date Type Department Care Team (Latest Contact Info) Description 08/09/2006 Outpatient Historical [facility] Family Medicine- [address] [place] [address] Jing Swartz MD NO ADDRESS ON FILE Routine Gynecological Examination (Primary Dx) Social History Tobacco Use Types Packs/Day Years Used Date Smoking Tobacco: Never Assessed Comments Unknown Sex and Gender Information Value Date Recorded Sex Assigned at Not on file Legal 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
--- OUTSIDE RECORDS SUMMARY | 2024-08-04 18:08 | XMS_ITS | Encounter Summary ---
Author Organization [facility] Address [address] [facility] [place] [address] Care Team Providers Care Domestic Freight Forwarder Name Role Phone Henrik Kuo MD Primary Care Provider +1 [phone] Reason for Referral * Outpatient Services (Routine) - Closed Specialty Diagnoses / Procedures Referred By [place] Referred To Contact Diagnoses Screening mammogram Procedures MAMMO SCREENING BILAT Jing Swartz MD NO ADDRESS ON FILE Referral ID Status Reason Start Date Expiration Date Visits Re quested Visits Authorized [id number] Closed 09/06/2010 09/06/2011 1 1 Encounter Details Date Type Department Care Team ([facility] Contact Info) Description 09/06/2010 Ancillary Orders [facility] Imaging External Read [address] [place] [address] Jing Swartz MD NO ADDRESS ON FILE Screening mammogram Social History Tobacco Use Types Packs/Day Years Used Date Smoking Tobacco: Never Alcohol Use Standard Drinks/Week Comments No 0 (1 standard drink = 0.6 oz pur e alcohol) Comments No Sex and Gender Information Value Date Recorded Sex Assigned at Not on file Legal Sex Female 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 This examination was reviewed with the aid of a computer-aided detection system(CAD). The breast tissue is very dense. Bilateral breast nodularity is stable. No significant new findings since the prior mammogram(s). Procedure Note Glo Corona MD - 09/08/2010 Bilateral Mammogram Reason for Exam: Screening Comparison: Comparison is made with the prior exam(s) dated 08.15.05 Findings: Bilateral CC and MLO views were obtained. This examination was reviewed with the aid of a computer-aided detectionsystem(CAD). The breast tissue is very dense. Bilateral breast nodularity is stable. No significant new findings since the prior mammogram(s). Jing Swartz MD MAMMO ORDERABLES Final Resu lt documented in this encounter Visit Diagnoses Diagnosis Screening mammogram Other screening mammogram documented in this encounter Additional Health Concerns Infection Onset Date Last Indicated Resolved Time R/O COVID-19 10/09/2019 10/09/2019 10/11/2019 1:00 AM CDT COVID-19 10/09/2019 10/09/2019 11/08/2019 8:08 PM CDT documented as of this encounter Care Teams Domestic Freight Forwarder Relationship Specialty Start Date End Date Henrik Kuo MD [address] [phone] PCP - General Family Practice 11/26/16 documented as of this encounter
--- OUTSIDE RECORDS SUMMARY | 2024-08-04 18:08 | XMS_ITS | Encounter Summary ---
Author Organization [facility] Address [address] [place] [address] Care Team Providers Care Child Welfare Assistant Name Role Phone Henrik Kuo MD Primary Care Provider +1 [phone] Reason for Referral * Outpatient Services (Routine) - Closed Specialty Diagnoses / Procedures Referred By Alton t Referred To Contact Radiology Diagnoses Other screening mammogram Procedures MAMMO DIGITIZED STUDY Jing Swartz MD NO ADDRESS ON FILE [facility] [address] [facility] [address] [place] [address] Phone: tel: fax: Referral ID Status Reason Start Date Expiration Date Visits Re quested Visits Authorized [id number] Closed 09/13/2011 09/12/2012 1 1 Encounter Details Date Type Department Care Team (Late st Contact Info) Description 09/13/2011 Ancillary Orders [facility] Family Medicine- [address] [place] [address] Jing Swartz MD NO ADDRESS ON FILE Other screening mammogram Social History Tobacco Use Types Packs/Day Years Used Date Smoking Tobacco: Never Alcohol Use Standard Drinks/Week Comments No 0 (1 standard drink = 0.6 oz pur e alcohol) Comments No Sex and Gender Information Value Date Recorded Sex Assigned at Not on file Legal Sex Female 5:22 AM PRINCIPAL GIFTS OFFICER Gender Identity Not on file Sexual Orientation Not on file documented as of this encounter Plan of Treatment Not on file documented as of this encounter Results * MAMMO DIGITIZED STUDY (09/05/2010 4:17 PM CDT) Narrative Ayanna Mensah, RT - 09/13/2011 4:17 PM CDT Order information only. Exam was auto-finalized. Procedure Note Ayanna Mensah, RT - 09/13/2011 Order information only. Exam was auto-finalized. us Jing Swartz MD DIAGNOSTIC IMAGING ORDERABL ES Final Result documented in this encounter Visit Diagnoses Diagnosis Other screening mammogram Other screening mammogram documented in this encounter Additional Health Concerns Infection Onset Date Last Indicated Resolved Time R/O COVID-19 10/09/2019 10/09/2019 10/11/2019 1:00 AM CDT COVID-19 10/09/2019 10/09/2019 11/08/2019 8:08 PM CDT documented as of this encounter Care Teams Child Welfare Assistant Relationship Specialty Start Date End Date Henrik Kuo MD [address] [facility] [address] [place] [address] PCP - General Family Practice 11/26/16 documented as of this encounter
--- OUTSIDE RECORDS SUMMARY | 2024-08-04 18:08 | XMS_ITS | Encounter Summary ---
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
--- OUTSIDE RECORDS SUMMARY | 2024-08-04 18:08 | XMS_ITS | Encounter Summary ---
Author Organization [facility] Address [address] [facility] [place] [address] Care Team Providers Care Attorney Law Clerk Name Role Phone Henrik Kuo MD Primary Care Provider +1 [phone] Encounter Details Date Type Department Care Team (Latest Contact Info) Description 05/31/2003 Outpatient Historical [facility] Family Medicine- [address] [place] [address] Jing Swartz MD NO ADDRESS ON FILE ALLERGIC RHINITIS NOS (Primary Dx) Social History Tobacco Use Types Packs/Day Years Used Date Smoking Tobacco: Never Assessed Comments Unknown Sex and Gender Information Value Date Recorded Sex Assigned at Not on file 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 Gender Identity Not on file Sexual Orientation Not on file documented as of this encounter Plan of Treatment Not on file documented as of this encounter Visit Diagnoses Diagnosis Allergic rhinitis, cause unspecified- Primary documented in this encounter Additional Health Concerns Infection Onset Date Last Indicated Resolved Time R/O COVID-19 10/09/2019 10/09/2019 10/11/2019 1:00 AM CDT COVID-19 10/09/2019 10/09/2019 11/08/2019 8:08 PM CDT documented as of this encounter Care Teams Attorney Law Clerk Relationship Specialty Start Date End Date Henrik Kuo MD [address] [facility] [address] [place] [address] PCP - General Family Practice 11/26/16 documented as of this encounter
--- OUTSIDE RECORDS SUMMARY | 2024-08-04 18:08 | XMS_ITS | Encounter Summary ---
Author Organization [facility] Address [address] [facility] [place] [address] Care Team Providers Care Hearing Aide Technician Name Role Phone Henrik Kuo MD Primary Care Provider +1 [phone] Encounter Details Date Type Department Care Team (Latest Contact Info) Description 05/17/2003 Outpatient Historical [facility] Family Medicine- [address] [place] [address] Jing Swartz MD NO ADDRESS ON FILE SCABIES (Primary Dx) Social History Tobacco Use Types Packs/Day Years Used Date Smoking Tobacco: Never Assessed Comments Unknown Sex and Gender Information Value Date Recorded Sex Assigned at Not on file 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 Gender Identity Not on file Sexual Orientation Not on file documented as of this encounter Plan of Treatment Not on file documented as of this encounter Visit Diagnoses Diagnosis Scabies- Primary documented in this encounter Additional Health Concerns Infection Onset Date Last Indicated Resolved Time R/O COVID-19 10/09/2019 10/09/2019 10/11/2019 1:00 AM CDT COVID-19 10/09/2019 10/09/2019 11/08/2019 8:08 PM CDT documented as of this encounter Care Teams Hearing Aide Technician Relationship Specialty Start Date End Date Henrik Kuo MD [address] [facility] [address] [place] [address] PCP - General Family Practice 11/26/16 documented as of this encounter
--- OUTSIDE RECORDS SUMMARY | 2024-08-04 18:08 | XMS_ITS | Encounter Summary ---
Author Organization [facility] Address [address] [facility] [place] [address] Care Team Providers Care Senior Strategy Manager Name Role Phone Henrik Kuo MD Primary Care Provider +1 [phone] Encounter Details Date Type Department Care Team (Latest Contact Info) Description 01/26/2004 Outpatient Historical [facility] Family Medicine- [address] [place] [address] Too Navarrete NP NO ADDRESS ON FILE VAGINITIS NOS (Primary Dx) Social History Tobacco Use Types Packs/Day Years Used Date Smoking Tobacco: Never Assessed Comments Unknown Sex and Gender Information Value Date Recorded Sex Assigned at Not on file 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
--- OUTSIDE RECORDS SUMMARY | 2024-08-04 18:08 | XMS_ITS | Encounter Summary ---
Author Organization [facility] Address [address] [place] [address] Care Team Providers Care Glue Spreader Name Role Phone Henrik Kuo MD Primary Care Provider +1 -[phone] Reason for Visit * Reason Comments Medication Assistance Encounter Details Date Type Department Care Team ([facility] [address] Contact Info) Description 05/25/2024 Telephone [facility] Family Medicine [place] [address] [place] [address] [place] [address] Marta Amaro FNP [address] [facility] [place] [address] Medication Assistance Social History Tobacco Use Types Packs/Day Years [...] on file Legal Sex Female 5:09 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 Topic: Medication Request >> May 25, 2024 3:02 PM Mercedes Srinivasan wrote: Caller Name: [facility] Callback Number: [phone] Medication (Ask patient/caregiver to spell if possible): nitrofurantoin (MACROBID) 100 mg capsule Caller is requesting: Medication Question from Patient (not involving new prescription or refill) Preferred Pharmacy: [facility] [place] - [address] [address] Call Notes: Caller has question about medication, patient is out of Macrobid. Can it be refilled orwas there another prophylactic provider was going to prescribe? Please advise. Is there an encounter open? No documented in this encounter Plan of Treatment Upcoming Encounters Date Type Department Care Team (Late st Contact Info) Description 01/22/2025 10:00 AM DIGITAL SALES PLANNER Office Visit [facility] [place] [address] [place] [address], [place] [address] Marta Amaro FNP [address] [place] [address] documented as of this encounter Visit Diagnoses Not on filedocumented in this encounter Care Teams Glue Spreader Relationship Specialty Start Date End Date Henrik Kuo MD [address] [facility] [address] [place] [address] PCP - General Family Practice 01/23/21 documented as of this encounter
--- OUTSIDE RECORDS SUMMARY | 2024-08-04 18:08 | XMS_ITS | Encounter Summary ---
Author Organization [facility] Address [address] [place] [address] Care Team Providers Care Global Marketing Intern Name Role Phone Henirk Kuo MD Primary Care Provider +1 [phone] Encounter Details Date Type Department Care Team (Late st Contact Info) Description 09/23/2012 Ancillary Orders [facility] Family Medicine- [place] [address] [place] [address] Luli Faulkner APRN NO ADDRESS ON FILE Other screening mammogram (Primary Dx) Social History Tobacco Use Types Packs/Day Years Used Date Smoking Tobacco: Never Smokeless Tobacco: Never Alcohol Use Standard Drinks/Week Comments No 0 (1 standard drink = 0.6 oz pur e alcohol) Comments No Sex and Gender Information Value Date Recorded Sex Assigned at Not on file Legal Sex 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 Exam was [...] documented as of this encounter Care Teams Global Marketing Intern Relationship Specialty Start Date End Date Henrik Kuo MD [facility] [address] [phone] PCP - General Family Practice 11/26/16 documented as of this encounter
--- OUTSIDE RECORDS SUMMARY | 2024-08-04 18:08 | XMS_ITS | Encounter Summary ---
Author Organization [facility] Address [address] [place] [address] Care Team Providers Care Enamel Finisher Name Role Phone Henrik Kuo MD Primary Care Provider +1 -[phone] Encounter Details Date Type Department Care Team (Latest Contact Info) Description 06/15/2004 Outpatient Historical [facility] Medicine [address] [address] Jing Swartz MD NO ADDRESS ON FILE ACUTE URI NOS (Primary Dx) Social History Tobacco Use Types Packs/Day Years Used Date Smoking Tobacco: Never Assessed Comments Unknown Sex and Gender Information Value Date Recorded Sex Assigned at Not on file Legal Sex Female 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 Gender Identity Not on file Sexual Orientation Not on file documented as of this encounter Plan of Treatment Not on file documented as of this encounter Visit Diagnoses Diagnosis Acute upper respiratory infections of unspecified site- Primary documented in this encounter Additional Health Concerns Infection Onset Date Last Indicated Resolved Time R/O COVID-19 10/09/2019 10/09/2019 10/11/2019 1:00 AM CDT COVID-19 10/09/2019 10/09/2019 11/08/2019 8:08 PM CDT documented as of this encounter Care Teams Enamel Finisher Relationship Specialty Start Date End Date Henrik Kuo MD [address] [address] PCP - General Family Practice 11/26/16 documented as of this encounter
--- OUTSIDE RECORDS SUMMARY | 2024-08-04 18:08 | XMS_ITS | Encounter Summary ---
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 ACCESSORIES USE MEDICATN Social History Tobacco Use Types Packs/Day Years Used Date Smoking Tobacco: Never Assessed Comments Unknown Sex and Gender Information Value Date Recorded Sex Assigned at Not on file 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 Gender Identity Not on file Sexual Orientation Not on file documented as of this encounter Plan of Treatment Not on file documented as of this encounter Visit Diagnoses Diagnosis Other and unspecified hyperlipidemia- Primary 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
--- OUTSIDE RECORDS SUMMARY | 2024-08-04 18:08 | XMS_ITS | Encounter Summary ---
Author Organization [facility] Address [address] [place] [address] Care Team Providers Care Sample Display Preparer Name Role Phone Henrik Kuo MD Primary Care Provider +1 -[phone] Encounter Details Date Type Department Care Team (Latest Contact Info) Description 08/28/2005 Outpatient Historical [facility] C Vazquez DO NO ADDRESS ON FILE Other Follow-Up Examination (Primary Dx) Social History Tobacco Use Types Packs/Day Years Used Date Smoking Tobacco: Never Assessed Comments Unknown Sex and Gender Information Value Date Recorded Sex Assigned at Not on file Legal 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 Gender Identity Not on file Sexual Orientation Not on file documented as of this encounter Plan of Treatment Not on file documented as of this encounter Visit Diagnoses Diagnosis Other follow-up examination(V67.59)- Primary Other follow-up examination documented in this encounter Additional Health Concerns Infection Onset Date Last Indicated Resolved Time R/O COVID-19 10/09/2019 10/09/2019 10/11/2019 1:00 AM CDT COVID-19 10/09/2019 10/09/2019 11/08/2019 8:08 PM CDT documented as of this encounter Care Teams Sample Display Preparer Relationship Specialty Start Date End Date Henrik Kuo MD [address] [facility] [address] [place] [address] PCP - General Family Practice 11/26/16 documented as of this encounter
--- OUTSIDE RECORDS SUMMARY | 2024-08-04 18:08 | XMS_ITS | Encounter Summary ---
Author Organization [facility] Address [address] [place] [address] Care Team Providers Care Food Products Tester Name Role Phone Henrik Kuo MD Primary Care Provider +1 -[phone] Reason for Referral * Outpatient Services (Routine) - Closed Specialty Diagnoses / Procedures Referred By Alton t Referred To Contact Radiology Diagnoses Other screening mammogram Procedures MAMMO DIGITIZED STUDY Jing Swartz MD NO ADDRESS ON FILE [facility] [address] [facility] [address] [place] [address] Phone: tel: fax: Referral ID Status Reason Start Date Expiration Date Visits Re quested Visits Authorized [id number] Closed 09/13/2011 09/12/2012 1 1 Encounter Details Date Type Department Care Team (Late st Contact Info) Description 09/13/2011 Ancillary Orders [facility] Family Medicine- [address] [place] [address] Jing Swartz MD NO ADDRESS ON FILE Other screening mammogram Social History Tobacco Use Types Packs/Day Years Used Date Smoking Tobacco: Never Alcohol Use Standard Drinks/Week Comments No 0 (1 standard drink = 0.6 oz pur e alcohol) Comments No Sex and Gender Information Value Date Recorded Sex Assigned at Not on file 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 Exam was [...] documented as of this encounter Care Teams Food Products Tester Relationship Specialty Start Date End Date Henrik Kuo MD [address] [facility] [address] [place] [address] PCP - General Family Practice 11/26/16 documented as of this encounter
--- NOTE | 2024-08-04 18:29 | CTR_ITS ---
PROCEDURE INFORMATION: Exam: CT Left Lower Extremity Without Contrast, Ankle Exam date and time: 08/04/2024 6:55 PM Age: 59 years old Clinical indication: Injury or trauma; Fall; Blunt trauma; Left; Prior surgery; Surgery date: 6+ months; Surgery type: Lt ankle TECHNIQUE: Imaging protocol: CT of the left lower extremity without contrast was performed. Exam focused on the ankle. Radiation optimization: All CT scans at this facility use at least one of these dose optimization techniques: automated exposure control; mA and/or kV adjustment per patient size (includes targeted exams where dose is matched to clinical indication); or iterative reconstruction. COMPARISON: CR XR ankle LT min 3V* [id number] 08/04/2024 5:40 PM RADIATION DOSE METRICS: Total DLP (mGy-cm): 179.07 FINDINGS: Bones/joints: There are intra-articular comminuted fractures involving the 1st 2nd 3rd and 4th metatarsal bases. There is widening of the inter metatarsal space between the 1st and 2nd metatarsals. Concerning for Lisfranc injury. Postsurgical changes related to ORIF involving the distal fibula and distal tibia. There is osseous fusion of the distal tib-fib syndesmosis. Posterior and plantar calcaneal spurring. The talar dome is intact. The ankle mortise is congruent. Soft tissues: Diffuse overlying soft tissue swelling greatest dorsally. CT/CT foot LT wo con* [id number] IMPRESSION: As above.
[2024-08-04 18:51] LABS: Basophils % 0.2 %; Eosinophils # 0.1 10^3/uL (0.0-0.8); Eosinophils % 0.7 %; Hematocrit 42.6 % (36-47); Lymphocytes # 1.6 10^3/uL (0.8-4.8); Lymphocytes % 11.8 %; Mean Corpuscular HGB Conc 32.2 g/dL (30-55); Mean Corpuscular Hemoglobin 29.7 pg (27-33); Mean Corpuscular Volume 92.2 fl (85-98); Mean Platelet Volume 8.6 fL (7.4-10.4); Monocytes # 0.9 10^3/uL (0.2-0.9); Monocytes % 6.3 %; Neutrophils % 80.6 %; Nucleated Red Blood Cells % 0 %; Platelet Count 343 10^3/cmm (157-399); Red Blood Count 4.62 10^6/uL (3.85-5.65); Red Cell Distribution Width 12.3 % (12.1-15.1)
[2024-08-04 19:00] LABS: INR 0.89 (0.8-1.2)
[2024-08-04 19:09] LABS: Alanine Aminotransferase 21 U/L (0-33); Albumin Level 4.1 g/dL (3.5-5.2); Alkaline Phosphatase 120 U/L (35-105); Anion Gap 17.2 (5-19); Aspartate Amino Transferase 23 U/L (0-32); Blood Urea Nitrogen 16 mg/dL (8-23); Calcium 10.1 mg/dL (8.5-10.5); Carbon Dioxide 25 mmol/L (22-29); Chloride 101 mmol/L (98-107); Creatinine Clr Calc Pharmacy 113.5066; Globulin 3.6 g/dL (1.3-4.6); Glomerular Filtration Rate 85.4 mL/min (90-130); Glucose 95 mg/dL (65-115); Osmolality Calculated 289 mOsm/kg (285-295); Potassium 4.2 mmol/L (3.5-5.1); Sodium 139 mmol/L (136-145); Total Bilirubin 0.7 mg/dL (0.15-1.2); Total Protein 7.7 g/dL (6.6-8.7)
--- NOTE | 2024-08-04 20:09 | PM.HP ---
Providers/Chief Complaint Admitting Physician: Vickey Sky MD Primary Care Provider: Marta Amaro Chief Complaint: Left midfoot fractures History of Present Illness Glendy Salas is a 59 year old female morbidly obese with a BMI of 54.5 lives alone. She was walking for her haircut today because she does not drive and was taking the short cut through the [place] lost her balance fell backwards and felt a pop as she hit the ground. Patient was found to have left 1st, 2nd and 4th proximal metatarsal fractures which will require surgery. She is unable to walk and care for herself as she lives alone so needs to be admitted for surgery. Patient reports history of depression controlled. She has tremor since age 31 and obesity since age 29. She has 1 child by age 18. She has had left kidney damage due to 15 kidney stones left kidney was removed. She has never had blood clots in the legs or lungs. She does not have chest pain with exertion. Review of Systems Narrative: General no fevers chills she has had obesity for last 30+ years Cardiovascular no chest pain palpitations or edema Respiratory no shortness of breath cough wheezing GI no nausea vomiting diarrhea she does have constipation last bowel movement was 3 days ago no dysuria hematuria but she does get urinary tract infections frequently and last one was a month ago in June Neuro no seizures or strokes. Patient reports learning disability and speech impediment since Psychiatric positive for depression Medications/Allergies Home Medications ?Medication ?Instructions ?Recorded ?Confirmed ?Last Taken ?Type cholecalciferol (vitamin D3) 50 50 mcg PO DAILY 07/13/19 05/27/24 Unknown History mcg (2,000 unit) capsule lovastatin 40 mg tablet 40 mg PO DAILY 07/13/19 05/27/24 Unknown History cetirizine 10 mg tablet ea PO 11/28/22 05/27/24 Unknown History nystatin 100,000 unit/gram topical g topical 11/28/22 05/27/24 Unknown History cream omeprazole 40 mg capsule,delayed ea PO 11/28/22 05/27/24 Unknown History release triamcinolone acetonide 0.1 % g topical 11/28/22 05/27/24 Unknown History topical cream aripiprazole 10 mg tablet (Abilify) 10 mg PO DAILY #90 tabs 02/26/24 05/27/24 Unknown Rx prazosin 2 mg capsule 2 mg PO .HS #90 caps 02/26/24 05/27/24 Unknown Rx venlafaxine 150 mg 150 mg PO DAILY #90 caps 02/26/24 05/27/24 Unknown Rx capsule,extended release 24 hr propranolol 20 mg tablet 20 mg PO BID #180 tabs 06/24/24 Unknown Rx Allergies Allergy/AdvReac Type Severity Reaction Status Date / Time menthol (From Icy Hot) Allergy Rash Verified 05/27/24 10:59 methyl salicylate (From Icy Allergy Rash Verified 05/27/24 10:59 Hot) Penicillins Allergy Diarrhea, Verified 05/27/24 10:59 nausea, vomiting Sulfa (Sulfonamide Allergy Rash Verified 05/27/24 10:59 Antibiotics) PFSH Acute PFSH: Medical History (Updated 08/04/24 @ 20:18 by Vickey Sky MD) Morbid obesity due to excess calories GERD (gastroesophageal reflux disease) Schizophrenia Depression On combination antipsychotic drug therapy Psychiatric care Other schizophrenia Mild intellectual disabilities Family History Sister Thyroid disease Denies family history of Colon cancer Ovarian cancer Diabetes Clotting disorder Heart disease Hyperlipidemia Breast cancer Anesthesia complication Bleeding disorder Hypertension Uterine cancer Stroke Social History (Updated 08/04/24 @ 20:16 by Vickey Sky MD) Smoking and tobacco/nicotine status: never used tobacco/nicotine Alcohol intake: never Substance/Drug Use: never Additional social history: Patient graduated from high school but states she took special-education classes. She states she wants DNR status as discussed today with Vickey Sky MD on 08/04/2024 Number of children: 1 Vitals/I&O/Wt Last Vital Signs Temp 98.2 F 08/04/24 17:39 Pulse 106 H 08/04/24 17:39 Resp 18 08/04/24 17:39 BP 153/105 08/04/24 17:39 Pulse Ox 96 08/04/24 17:39 O2 Del Method Room Air 08/04/24 17:39 08/04/24 08/04/24 08/04/24 06:59 14:59 22:59 Intake Total 0 / 0 Balance 0 / 0 Weight last 48 hrs Weight 135.171 kg Physical Exam Narrative: General well-developed well-nourished morbidly obese female in no acute cardiopulmonary distress Neck no palpable masses Oropharynx Mallampati 2 CV regular rate and rhythm Lungs clear to auscultation bilaterally Abdomen positive bowel sounds soft nontender Calves left 1 is in a splint but right side no edema Mentation she is alert pleasant good historian but speech is slurred Data 08/04/24 18:41 08/04/24 18:41 A&P Assessment and plan (1) Lisfranc fracture: Patient is admitted with Dr. Acevedo consulting and plan for surgery. Will cover with Lovenox for DVT prophylaxis and oral pain meds. Discussed with her that she likely need placement if she does not have caregiver at home (2) Morbid obesity due to excess calories: Patient counseled regarding need to wear shoes when she is hiking through [place] to get to her hairdresser. She was wearing sandals and lost her footing. Also recommend to lose weight and she is agreeable. Will start 1600-calorie ADA diet to try and lose 3 pounds a week (3) Mild intellectual disabilities: Patient appears competent to make her own medical decisions. She wants DO NOT RESUSCITATE status and I encouraged her to inform her family. She states they do not know (4) Constipation: Start stool softeners and MiraLAX PDMP PDMP Reviewed: Not Reviewed Attestations Medical Necessity Statement*: Patient is admitted to hospital with foot fracture with intended surgery and expected to be in the hospital greater than 2 midnights. Coding Level of Care Code 21951 Diagnoses Lisfranc fracture Morbid obesity due to excess calories E66.01 Mild intellectual disabilities F70 Constipation K59.00 Time Spent (min) 70
[2024-08-04 20:35] VITALS: BP 126/79; PULSE 88; RESP 16; O2SAT 97
--- NOTE | 2024-08-04 21:29 | PM.CONSULT ---
Providers/Reason For Consult Consulting Physician/Specialty*: Dr. Howard Foster, DPM/Podiatry Reason for Consult*: Left foot Lisfranc fracture Primary Care Provider: Marta Amaro History of Present Illness History of Present Illness Patient is a 59-year-old female who presented to the emergency department via EMS after sustaining a fall into a [place] bed while walking to an appointment. She reports falling backward and feeling a pop in her left foot at the time of injury. She also sustained injury to her left ring finger. Initial radiographs of the left foot obtained in the ED reveal Lisfranc involvement affecting the 1st, 2nd, and 3rd metatarsal bases. A CT scan was subsequently ordered and showed a comminuted intra-articular fracture at the 2nd, 3rd, and 4th tarsometatarsal articulations as well as intra-articular fracture at the 1st tarsometatarsal joint. Patient currently lives alone and reports she is unable to care for herself in her current condition. Due to her injury and nonweightbearing status, she is functionally dependent and lacks adequate support at home. Review of Systems General: Reports: 10 or more systems reviewed and unremarkable except in HPI and below Const: Denies: fever(s), chills or fatigue Eyes: Denies: change in vision ENMT: Denies: sinus pain Card: Denies: chest pain, palpitations or lightheadedness Resp: Denies: dyspnea GI: Denies: abdominal pain, nausea or vomiting Musc: Reports: extremity pain, extremity swelling and limited range of motion; Denies: neck pain or back pain Skin/Breast: Reports: skin swelling Neuro: Denies: numbness in extremities Medications/Allergies Home Medications ?Medication ?Instructions ?Recorded ?Confirmed ?Last Taken ?Type cholecalciferol (vitamin D3) 50 50 mcg PO DAILY 07/13/19 05/27/24 Unknown History mcg (2,000 unit) capsule lovastatin 40 mg tablet 40 mg PO DAILY 07/13/19 05/27/24 Unknown History cetirizine 10 mg tablet ea PO 11/28/22 05/27/24 Unknown History nystatin 100,000 unit/gram topical g topical 11/28/22 05/27/24 Unknown History cream omeprazole 40 mg capsule,delayed ea PO 11/28/22 05/27/24 Unknown History release triamcinolone acetonide 0.1 % g topical 11/28/22 05/27/24 Unknown History topical cream aripiprazole 10 mg tablet (Abilify) 10 mg PO DAILY #90 tabs 02/26/24 05/27/24 Unknown Rx prazosin 2 mg capsule 2 mg PO .HS #90 caps 02/26/24 05/27/24 Unknown Rx venlafaxine 150 mg 150 mg PO DAILY #90 caps 02/26/24 05/27/24 Unknown Rx capsule,extended release 24 hr propranolol 20 mg tablet 20 mg PO BID #180 tabs 06/24/24 Unknown Rx Allergies Allergy/AdvReac Type Severity Reaction Status Date / Time menthol (From Icy Hot) Allergy Rash Verified 05/27/24 10:59 methyl salicylate (From Icy Allergy Rash Verified 05/27/24 10:59 Hot) Penicillins Allergy Diarrhea, Verified 05/27/24 10:59 nausea, vomiting Sulfa (Sulfonamide Allergy Rash Verified 05/27/24 10:59 Antibiotics) PFSH Acute PFSH: Medical History (Updated 08/04/24 @ 20:18 by Vickey kSy MD) Morbid obesity due to excess calories GERD (gastroesophageal reflux disease) Schizophrenia Depression On combination antipsychotic drug therapy Psychiatric care Other schizophrenia Mild intellectual disabilities Family History Sister Thyroid disease Denies family history of Colon cancer Ovarian cancer Diabetes Clotting disorder Heart disease Hyperlipidemia Breast cancer Anesthesia complication Bleeding disorder Hypertension Uterine cancer Stroke Social History (Updated 08/04/24 @ 20:16 by Vickey Sky MD) Smoking and tobacco/nicotine status: never used tobacco/nicotine Alcohol intake: never Substance/Drug Use: never Additional social history: Patient graduated from high school but states she took special-education classes. She states she wants DNR status as discussed today with Vickey Sky MD on 08/04/2024 Number of children: 1 Vitals/I&O/Wt Last Vital Signs Temp 98.2 F 08/04/24 17:39 Pulse 88 08/04/24 20:35 Resp 16 08/04/24 20:35 BP 126/79 08/04/24 20:35 Pulse Ox 97 08/04/24 20:35 O2 Del Method Room Air 08/04/24 20:35 08/04/24 08/04/24 08/04/24 06:59 14:59 22:59 Intake Total 0 / 0 Balance 0 / 0 Weight last 48 hrs Weight 298 lb Physical Exam Narrative: BELOW IS A FOCUSED LOWER EXTREMITY EXAM VASCULAR: DP/PT pulses palpable 2/4 with CFT intact, <3 seconds to distal digits DERMATOLOGICAL: Moderate edema to left midfoot. No open wounds noted. Skin turgor and temperature within normal limits. No signs of necrosis or breakdown. MUSCULOSKELETAL: Marked swelling and tenderness noted over left midfoot. No gross deformity. Splint in place. No tenderness to ankle or hindfoot on palpation. NEUROLOGICAL: Sensation intact to light touch in L4?S1 dermatomes. Distal digits warm. No sensory or motor deficits appreciated. IMAGIN-view x-rays of the left foot obtained in the ED show Lisfranc involvement of the 1st, 2nd, and 3rd metatarsal bases. CT scan of the left foot independently reviewed today confirms comminuted intra-articular fracture involving the 2nd, 3rd, and 4th tarsometatarsal joints, as well as intra-articular fracture at the 1st tarsometatarsal joint. Data 08/04/24 18:41 08/04/24 18:41 A&P Assessment and plan (1) Lisfranc fracture: Plan -Evaluate and treat left foot Lisfranc fracture-dislocation. Patient will require operative intervention likely in the form of midfoot fusion. However, surgical management is deferred for 7?10 days due to significant soft tissue edema and to minimize risk of wound dehiscence or postoperative infection. -Recommend SNF placement due to patient?s inability to perform activities of daily living, nonweightbearing requirement, and lack of home support. Patient lives alone and cannot care for herself in her current condition. -Patient to remain nonweightbearing to left lower extremity. -Splint placed in ED to remain in place until reevaluation. -ORIF vs midfoot arthrodesis to be performed once soft tissue envelope improves. -Pain control and DVT prophylaxis per primary team. -Labs and vitals reviewed -Diet: Okay for diet from podiatry standpoint -Pain Mgmt: Per primary team -Weight bearing: NWB left lower extremity -Dressings: Posterior splint in place -Discharge plan: Recommend patient be discharged to SNF given circumstances surrounding injury and past medical history. Patient will need to undergo surgical correction of left foot injury in the next 7 to 10 days pending soft tissue envelope and swelling. Patient is to leave posterior splint intact and remain nonweightbearing to the left lower extremity using crutches or knee scooter. -Podiatry will continue to round on patient daily and provide recommendations PDMP PDMP Reviewed: Not Reviewed Coding Level of Care Code Acute Code for Chg Fwd Diagnoses Lisfranc fracture
[2024-08-04] MEDS: prazosin 1 mg Capsule 2 MG PO (22:16)
[2024-08-04] MEDS: enoxaparin 40 mg/0.4 mL Syringe SUBCUT (22:16)
[2024-08-04 23:40] VITALS: RESP 16
[2024-08-04] MEDS: oxyCODONE-APAP 5-325 mg Tablet 1 TAB PO (23:40)
[2024-08-05] VITALS (9 sets, daily range): BP systolic 105–152; BP diastolic 67–89; PULSE 68–104; RESP 15–18; TEMP 36.4–36.6; O2SAT 92–97
[2024-08-05] MEDS: oxyCODONE-APAP 5-325 mg Tablet 1 TAB PO (09:07)
[2024-08-05] MEDS: propranolol 20 mg Tablet PO ×2 (09:08→17:47)
[2024-08-05] MEDS: pantoprazole DR 40 mg Tablet PO (09:08)
[2024-08-05] MEDS: ARIPiprazole 10 mg Tablet PO (09:09)
[2024-08-05] MEDS: cetirizine 10 mg Tablet PO (09:09)
[2024-08-05] MEDS: docusate sodium 100 mg Capsule PO ×2 (09:09→17:47)
[2024-08-05] MEDS: ATORVASTATIN 10 MG TABLET 20 MG PO (10:34)
[2024-08-05] MEDS: venlafaxine ER (24HR) 150 mg Capsule PO (10:35)
[2024-08-05] MEDS: cholecalciferol (vitamin D3) 1,000 unit Tablet 2000 UNIT PO (10:48)
[2024-08-05] MEDS: ibuprofen 200 mg Tablet 400 MG PO (14:44)
--- NOTE | 2024-08-05 15:56 | P.PN_ITS ---
Subjective 2 Subjective: Patient seen at bedside resting comfortably. States that she does have intermittent pain that seems to respond well to Tylenol. Vitals/I&O/Wt Last Vital Signs Temp 97.8 F 08/05/24 15:35 Pulse 93 08/05/24 15:35 Resp 17 08/05/24 15:35 BP 120/82 08/05/24 15:35 Pulse Ox 94 08/05/24 15:35 O2 Del Method Room Air 08/05/24 15:35 O2 Flow Rate 3 08/05/24 00:00 08/05/24 08/05/24 08/05/24 06:59 14:59 22:59 Intake Total 240 / 240 Balance 240 / 240 Weight last 48 hrs Weight 298 lb Physical Exam 2 Narrative: BELOW IS A FOCUSED LOWER EXTREMITY EXAM VASCULAR: DP/PT pulses palpable 2/4 with CFT intact, <3 seconds to distal digits DERMATOLOGICAL: Moderate edema to left midfoot. No open wounds noted. Skin turgor and temperature within normal limits. No signs of necrosis or breakdown. MUSCULOSKELETAL: Marked swelling and tenderness noted over left midfoot. No gross deformity. Splint in place. No tenderness to ankle or hindfoot on palpation. NEUROLOGICAL: Sensation intact to light touch in L4?S1 dermatomes. Distal digits warm. No sensory or motor deficits appreciated. IMAGIN-view x-rays of the left foot obtained in the ED show Lisfranc involvement of the 1st, 2nd, and 3rd metatarsal bases. CT scan of the left foot independently reviewed today confirms comminuted intra-articular fracture involving the 2nd, 3rd, and 4th tarsometatarsal joints, as well as intra-articular fracture at the 1st tarsometatarsal joint. Data 08/04/24 18:41 08/04/24 18:41 A&P Assessment and plan (1) Lisfranc fracture: Plan -Evaluate and treat left foot Lisfranc fracture-dislocation. Patient will require operative intervention likely in the form of midfoot fusion. However, surgical management is deferred for 7?10 days due to significant soft tissue edema and to minimize risk of wound dehiscence or postoperative infection. -Recommend SNF placement due to patient?s inability to perform activities of daily living, nonweightbearing requirement, and lack of home support. Patient lives alone and cannot care for herself in her current condition. -Patient to remain nonweightbearing to left lower extremity. -Splint placed in ED to remain in place until reevaluation. -ORIF vs midfoot arthrodesis to be performed once soft tissue envelope improves. -Pain control and DVT prophylaxis per primary team. -Labs and vitals reviewed -Diet: Okay for diet from podiatry standpoint -Pain Mgmt: Per primary team -Weight bearing: NWB left lower extremity -Dressings: Posterior splint in place -Discharge plan: Recommend patient be discharged to SNF given circumstances surrounding injury and past medical history. Patient will need to undergo surgical correction of left foot injury in the next 7 to 10 days pending soft tissue envelope and swelling. Patient is to leave posterior splint intact and remain nonweightbearing to the left lower extremity using crutches or knee scooter. -Podiatry will continue to round on patient daily and provide recommendations Splint was loosened to posterior aspect of left heel which provided relief to patient as splint was rubbing on back of the heel. Advised patient to continue to keep splint free from rubbing back of heel. Appreciate nurse help in compliance on this matter. Upon discharge from the hospital patient will need to follow-up with podiatry in the outpatient setting this will be next week. Anticipate definitive surgical intervention for 08/17/2024 in the outpatient setting. PDMP PDMP Reviewed: Not Reviewed Attestations 2 Medical Necessity Statement*: See hospitalist note Coding Level of Care Code Acute Code for Chg Fwd Diagnoses Lisfranc fracture
--- NOTE | 2024-08-05 16:15 | P.PN_ITS ---
Subjective 2 Subjective: Patient was seen this morning, currently alert oriented x 3, following commands, currently has a resting tremor reports a chronic history of resting tremor, reports pain, tells me that she does have 2 sisters but they have their own health problems and have people helping take care of them, so they cannot help take care of her Vitals/I&O/Wt Last Vital Signs Temp 97.8 F 08/05/24 15:35 Pulse 93 08/05/24 15:35 Resp 17 08/05/24 15:35 BP 120/82 08/05/24 15:35 Pulse Ox 94 08/05/24 15:35 O2 Del Method Room Air 08/05/24 15:35 O2 Flow Rate 3 08/05/24 00:00 08/05/24 08/05/24 08/05/24 06:59 14:59 22:59 Intake Total 240 / 240 Balance 240 / 240 Weight last 48 hrs Weight 135.171 kg Physical Exam 2 Const: COMMON NORMALS: no acute distress and patient oriented x3 Resp: COMMON NORMALS: normal respiratory effort, No retractions, No use of accessory muscles and clear to auscultation bilaterally AUSCULTATION: clear to auscultation bilaterally Cardio: COMMON NORMALS: regular rate, regular rhythm, S1 normal heart sound present and S2 normal heart sound present RATE: regular rate RHYTHM: r egular rhythm HEART SOUNDS: S1 normal heart sound present and S2 normal heart sound present GI: COMMON NORMALS: Normal to inspection, nondistended, normoactive bowel sounds present and non-tender Extremity: NARRATIVE EXTREMITY EXAM: Left foot wrapped Neuro: COMMON NORMALS: patient oriented x3 Psych: COMMON NORMALS: mental status grossly normal Data 08/04/24 18:41 08/04/24 18:41 A&P Assessment and plan (1) Lisfranc fracture: Left foot FINDINGS: Bones/joints: There are intra-articular comminuted fractures involving the 1st 2nd 3rd and 4th metatarsal bases. There is widening of the inter metatarsal space between the 1st and 2nd metatarsals. Concerning for Lisfranc injury. Postsurgical changes related to ORIF involving the distal fibula and distal tibia. There is osseous fusion of the distal tib-fib syndesmosis. Posterior and plantar calcaneal spurring. The talar dome is intact. The ankle mortise is congruent. Soft tissues: Diffuse overlying soft tissue swelling greatest dorsally. - Plan - Plan is to wait 7 to 10 days to decrease swelling before proceeding with surgical invention - Continue pain control - Nonweightbearing left lower extremity - Will need placement to intermediate facility (2) Morbid obesity due to excess calories: (3) Mild intellectual disabilities: Patient appears competent to make her own medical decisions. She wants DO NOT RESUSCITATE status and I encouraged her to inform her family. She states they do not know (4) Constipation: Start stool softeners and MiraLAX PDMP PDMP Reviewed: Not Reviewed Attestations 2 Medical Necessity Statement*: Patient requires hospitalization for lisfranc fracture Diagnoses Lisfranc fracture Morbid obesity due to excess calories E66.01 Mild intellectual disabilities F70 Constipation K59.00
--- NOTE | 2024-08-05 16:18 | XRR_ITS ---
PROCEDURE INFORMATION: Exam: XR Left Hip Exam date and time: 08/05/2024 4:37 PM Age: 59 years old Clinical indication: Hip pain; Left hip TECHNIQUE: Imaging protocol: Radiologic exam of the left hip. Views: 1 view hip with pelvis when performed. COMPARISON: CT kidney stone [id number] 12/13/2017 3:49 PM FINDINGS: Bones/joints: Unremarkable. No acute fracture. Soft tissues: Unremarkable. XR/XR hip LT 1V wo/w pel [id number] IMPRESSION: No acute findings.
[2024-08-05] MEDS: enoxaparin 40 mg/0.4 mL Syringe SUBCUT (20:59)
[2024-08-05] MEDS: prazosin 1 mg Capsule 2 MG PO (20:59)
[2024-08-06] VITALS (7 sets, daily range): BP systolic 102–136; BP diastolic 66–93; PULSE 70–84; RESP 16–17; TEMP 36.4–36.7; O2SAT 92–97
[2024-08-06] MEDS: ibuprofen 200 mg Tablet 400 MG PO (02:30)
[2024-08-06] MEDS: ATORVASTATIN 10 MG TABLET 20 MG PO (08:37)
[2024-08-06] MEDS: cholecalciferol (vitamin D3) 1,000 unit Tablet 2000 UNIT PO (08:37)
[2024-08-06] MEDS: cetirizine 10 mg Tablet PO (08:37)
[2024-08-06] MEDS: pantoprazole DR 40 mg Tablet PO (08:38)
[2024-08-06] MEDS: ARIPiprazole 10 mg Tablet PO (08:38)
[2024-08-06] MEDS: venlafaxine ER (24HR) 150 mg Capsule PO (08:38)
[2024-08-06] MEDS: docusate sodium 100 mg Capsule PO ×2 (08:38→17:17)
[2024-08-06] MEDS: propranolol 20 mg Tablet PO ×2 (08:38→17:17)
[2024-08-06] MEDS: oxyCODONE-APAP 5-325 mg Tablet 1 TAB PO (13:14)
--- NOTE | 2024-08-06 15:19 | P.PN_ITS ---
Subjective 2 Subjective: Patient was seen this morning, currently alert oriented x 3, following commands, denies any fevers, no chills, no cough, no nausea, no vomiting, pain is well- controlled Vitals/I&O/Wt Last Vital Signs Temp 97.5 F L 08/06/24 11:07 Pulse 76 08/06/24 11:07 Resp 16 08/06/24 13:14 BP 116/73 08/06/24 11:07 Pulse Ox 95 08/06/24 11:07 O2 Del Method Room Air 08/06/24 11:07 O2 Flow Rate 3 08/05/24 00:00 08/06/24 08/06/24 08/06/24 06:59 14:59 22:59 Intake Total 480 / 960 480 / 480 Output Total 500 / 500 Balance 480 / 960 -20 / -20 Weight last 48 hrs Weight 129.274 kg Weight 135.171 kg Physical Exam 2 Const: COMMON NORMALS: no acute distress and patient oriented x3 Resp: COMMON NORMALS: normal respiratory effort, No retractions, No use of accessory muscles and clear to auscultation bilaterally AUSCULTATION: clear to auscultation bilaterally Cardio: COMMON NORMALS: regular rate, regular rhythm, S1 normal heart sound present and S2 normal heart sound present RATE: regular rate RHYTHM: r egular rhythm HEART SOUNDS: S1 normal heart sound present and S2 normal heart sound present GI: COMMON NORMALS: Normal to inspection, nondistended, normoactive bowel sounds present and non-tender Extremity: COMMON NORMALS: no pedal edema Neuro: COMMON NORMALS: patient oriented x3 Psych: COMMON NORMALS: mental status grossly normal Data 08/04/24 18:41 08/04/24 18:41 A&P Assessment and plan (1) Lisfranc fracture: Left foot FINDINGS: Bones/joints: There are intra-articular comminuted fractures involving the 1st 2nd 3rd and 4th metatarsal bases. There is widening of the inter metatarsal space between the 1st and 2nd metatarsals. Concerning for Lisfranc injury. Postsurgical changes related to ORIF involving the distal fibula and distal tibia. There is osseous fusion of the distal tib-fib syndesmosis. Posterior and plantar calcaneal spurring. The talar dome is intact. The ankle mortise is congruent. Soft tissues: Diffuse overlying soft tissue swelling greatest dorsally. - Plan - Plan is to wait 7 to 10 days to decrease swelling before proceeding with surgical invention - Continue pain control - Nonweightbearing left lower extremity -, PT OT - Will need placement to shelter facility (2) Morbid obesity due to excess calories: (3) Mild intellectual disabilities: Patient appears competent to make her own medical decisions. She wants DO NOT RESUSCITATE status and I encouraged her to inform her family. She states they do not know (4) Constipation: Start stool softeners and MiraLAX PDMP PDMP Reviewed: Not Reviewed Attestations 2 Medical Necessity Statement*: Patient requires hospitalization for Lisfranc fracture, Diagnoses Lisfranc fracture Morbid obesity due to excess calories E66.01 Mild intellectual disabilities F70 Constipation K59.00
[2024-08-06] MEDS: enoxaparin 40 mg/0.4 mL Syringe SUBCUT (20:13)
[2024-08-06] MEDS: prazosin 1 mg Capsule 2 MG PO (20:13)
[2024-08-06] MEDS: magnesium hydroxide 30 mL UDC PO (20:14)
[2024-08-07] VITALS (8 sets, daily range): BP systolic 102–137; BP diastolic 65–81; PULSE 84–86; RESP 15–20; TEMP 36.4–36.7; O2SAT 92–93
[2024-08-07] MEDS: lactulose oral liq 20 gm/30 mL UDC 10 GM PO (00:03)
[2024-08-07] MEDS: oxyCODONE-APAP 5-325 mg Tablet 1 TAB PO ×3 (02:11→15:36)
[2024-08-07 06:52] LABS: Basophils % 0.4 %; Eosinophils # 0.2 10^3/uL (0.0-0.8); Eosinophils % 2.4 %; Hematocrit 34.8 % (36-47); Lymphocytes # 2.5 10^3/uL (0.8-4.8); Lymphocytes % 35.9 %; Mean Corpuscular HGB Conc 32.8 g/dL (30-55); Mean Corpuscular Hemoglobin 30.6 pg (27-33); Mean Corpuscular Volume 93.5 fl (85-98); Mean Platelet Volume 8.8 fL (7.4-10.4); Monocytes # 0.7 10^3/uL (0.2-0.9); Monocytes % 9.6 %; Neutrophils # 3.58 10^3/uL (1.8-7.7); Neutrophils % 51.4 %; Nucleated Red Blood Cells % 0 %; Platelet Count 234 10^3/cmm (157-399); Red Blood Count 3.72 10^6/uL (3.85-5.65); Red Cell Distribution Width 12.4 % (12.1-15.1); White Blood Count 6.97 10^3/uL (3.29-11.43)
[2024-08-07 07:20] LABS: Anion Gap 11.4 (5-19); Blood Urea Nitrogen 17 mg/dL (8-23); Calcium 9.2 mg/dL (8.5-10.5); Carbon Dioxide 28 mmol/L (22-29); Chloride 103 mmol/L (98-107); Creatinine Clr Calc Pharmacy 110.3241; Glomerular Filtration Rate 85.4 mL/min (90-130); Glucose 88 mg/dL (65-115); Osmolality Calculated 287 mOsm/kg (285-295); Potassium 4.4 mmol/L (3.5-5.1); Sodium 138 mmol/L (136-145)
[2024-08-07] MEDS: venlafaxine ER (24HR) 150 mg Capsule PO (08:28)
[2024-08-07] MEDS: cholecalciferol (vitamin D3) 1,000 unit Tablet 2000 UNIT PO (08:28)
[2024-08-07] MEDS: docusate sodium 100 mg Capsule PO ×2 (08:29→17:15)
[2024-08-07] MEDS: ARIPiprazole 10 mg Tablet PO (08:29)
[2024-08-07] MEDS: cetirizine 10 mg Tablet PO (08:29)
[2024-08-07] MEDS: pantoprazole DR 40 mg Tablet PO (08:29)
[2024-08-07] MEDS: ATORVASTATIN 10 MG TABLET 20 MG PO (08:29)
[2024-08-07] MEDS: propranolol 20 mg Tablet PO ×2 (08:30→17:15)
--- NOTE | 2024-08-07 13:33 | PC.SOCIAL ---
IMM Update pg 2 of IMM updated and reviewed w/ patients guardian. Copy provided and copy dated, initialed and placed in chart.
--- NOTE | 2024-08-07 14:01 | PM.DCS ---
Discharge Providers Date of Admission: 08/04/24 19:06 Date of Discharge: August 07, 2024 Attending Provider at Admission: Vickey Sky MD Attending Provider at Discharge: Martin Lee MD Primary Care Provider: Marta Amaro Diagnoses at Discharge Discharge Diagnosis (1) Lisfranc fracture: Status: Acute (2) Morbid obesity due to excess calories: Status: Acute (3) Mild intellectual disabilities: Status: Acute (4) Constipation: Status: Acute Reason for Visit Reason for Visit: Left midfoot fractures Hospital Course Hospital Course This is a 59-year-old morbidly obese female, who presents to [facility] for a fall Patient was admitted to [facility] Lisfranc fracture: Left foot FINDINGS: Bones/joints: There are intra-articular comminuted fractures involving the 1st 2nd 3rd and 4th metatarsal bases. There is widening of the inter metatarsal space between the 1st and 2nd metatarsals. Concerning for Lisfranc injury. Postsurgical changes related to ORIF involving the distal fibula and distal tibia. There is osseous fusion of the distal tib-fib syndesmosis. Posterior and plantar calcaneal spurring. The talar dome is intact. The ankle mortise is congruent. Soft tissues: Diffuse overlying soft tissue swelling greatest dorsally. - Plan - Plan is to wait 7 to 10 days to decrease swelling before proceeding with surgical invention - Tentatively surgery has been planned August 17, follow-up with Dr. Foster on Saturday or Saturday next week - She is nonweightbearing left lower extremity, has a posterior splint in place - Discharged on aspirin 81 mg DVT prophylaxis - Discharged on oxycodone to be used sparingly for pain control Physical Exam Const: COMMON NORMALS: no acute distress and patient oriented x3 Resp: COMMON NORMALS: normal respiratory effort, No retractions, No use of accessory muscles and clear to auscultation bilaterally AUSCULTATION: clear to auscultation bilaterally Cardio: COMMON NORMALS: regular rate, regular rhythm, S1 normal heart sound present and S2 normal heart sound present RATE: regular rate RHYTHM: regular rhythm HEART SOUNDS: S1 normal heart sound present and S2 normal heart sound present GI: COMMON NORMALS: Normal to inspection, nondistended, normoactive bowel sounds present and non-tender Extremity: COMMON NORMALS: no pedal edema Neuro: COMMON NORMALS: patient oriented x3 Psych: COMMON NORMALS: mental status grossly normal Discharge Data Studies Completed and Pending Completed Studies During Hospitalization Category Date Time Status CT foot LT wo con* [id number] Stat Cat Scan 08/04/24 18:29 Completed XR ankle LT min 3V* [id number] Stat Exams 08/04/24 17:39 Completed XR foot LT min 3V* [id number] Stat Exams 08/04/24 17:39 Completed XR hand LT min 3V* [id number] Stat Exams 08/04/24 17:39 Completed XR hip LT 1V wo/w pel [id number] Routine Exams 08/05/24 16:18 Completed Pending at discharge Category Date Time Status Basic Metabolic Panel AM LABS Lab 08/08/24 04:00 Ordered Basic Metabolic Panel AM LABS Lab 08/09/24 04:00 Ordered Complete Blood Count w/Auto AM LABS Lab 08/08/24 04:00 Ordered Complete Blood Count w/Auto AM LABS Lab 08/09/24 04:00 Ordered Radiology Impressions Ankle X-Ray 08/04/24 17:39 IMPRESSION: As above. Foot X-Ray 08/04/24 17:39 IMPRESSION: As above. Hand X-Ray 08/04/24 17:39 IMPRESSION: As above. Foot CT 08/04/24 18:29 IMPRESSION: As above. Hip X-Ray 08/05/24 16:18 IMPRESSION: No acute findings. Laboratory Results WBC 6.97 10^3/uL (3.29-11.43) 08/07/24 06:23 RBC 3.72 10^6/uL (3.85-5.65) L 08/07/24 06:23 Hgb 11.40 g/dL (11.27-16.99) 08/07/24 06:23 Hct 34.8 % (36-47) L 08/07/24 06:23 MCV 93.5 fl (85-98) 08/07/24 06:23 MCH 30.6 pg (27-33) 08/07/24 06:23 MCHC 32.8 g/dL (30-55) 08/07/24 06:23 RDW 12.4 % (12.1-15.1) 08/07/24 06:23 Plt Count 234 10^3/cmm (157-399) 08/07/24 06:23 MPV 8.8 fL (7.4-10.4) 08/07/24 06:23 Neut % (Auto) 51.4 % 08/07/24 06:23 Lymph % (Auto) 35.9 % 08/07/24 06:23 Sanborn % (Auto) 9.6 % 08/07/24 06:23 Eos % (Auto) 2.4 % 08/07/24 06:23 Baso % (Auto) 0.4 % 08/07/24 06:23 Neut # (Auto) 3.58 10^3/uL (1.8-7.7) 08/07/24 06:23 Lymph # (Auto) 2.5 10^3/uL (0.8-4.8) 08/07/24 06:23 Sanborn # (Auto) 0.7 10^3/uL (0.2-0.9) 08/07/24 06:23 Eos # (Auto) 0.2 10^3/uL (0.0-0.8) 08/07/24 06:23 Baso # (Auto) 0.0 10^3/uL (0.0-0.1) 08/07/24 06:23 Nucleated RBC % (auto) 0 % 08/07/24 06: Nucleated RBCs # 0.0 /100WBC 08/07/24 06:23 PT 12.70 SECONDS (12.1-14.9) 08/04/24 18:41 INR 0.89 (0.8-1.2) 08/04/24 18:41 Sodium 138 mmol/L (136-145) 08/07/24 06:23 Potassium 4.4 mmol/L (3.5-5.1) 08/07/24 06:23 Chloride 103 mmol/L (98-107) 08/07/24 06:23 Carbon Dioxide 28 mmol/L (22-29) 08/07/24 06:23 Anion Gap 11.4 (5-19) 08/07/24 06:23 BUN 17 mg/dL (8-23) 08/07/24 06:23 Creatinine 0.7 mg/dL (0.5-0.9) 08/07/24 06:23 GFR Calculation 85.4 mL/min (90-130) L 08/07/24 06:23 Glucose 88 mg/dL (65-115) 08/07/24 06:23 Calculated Osmolality 287 mOsm/kg (285-295) 08/07/24 06:23 Calcium 9.2 mg/dL (8.5-10.5) 08/07/24 06:23 Total Bilirubin 0.7 mg/dL (0.15-1.2) 08/04/24 18:41 AST 23 U/L (0-32) 08/04/24 18:41 ALT 21 U/L (0-33) 08/04/24 18:41 Alkaline Phosphatase 120 U/L (35-105) H 08/04/24 18:41 Total Protein 7.7 g/dL (6.6-8.7) 08/04/24 18:41 Albumin 4.1 g/dL (3.5-5.2) 08/04/24 18:41 Globulin 3.6 g/dL (1.3-4.6) 08/04/24 18:41 TSH 3.10 uIU/mL (0.27-4.20) 08/04/24 18:41 Vitals Last Vital Signs Temp 97.5 F L 08/07/24 10:58 Pulse 86 08/07/24 10:58 Resp 15 08/07/24 10:58 BP 137/65 08/07/24 10:58 Pulse Ox 93 08/07/24 10:58 O2 Del Method Room Air 08/07/24 10:58 O2 Flow Rate 3 08/05/24 00:00 Discharge Plan Discharge Patient Disposition: Xfer SNF Condition: Stable Prescriptions: New oxycodone-acetaminophen 5-325 mg Tablet 1 tab PO Q4H PRN (Reason: Severe Pain) 5 Days Qty: 30 0RF aspirin 81 mg tablet 81 mg PO DAILY 30 Days Qty: 30 0RF Continued triamcinolone acetonide 0.1 % cream 0.1 g topical BID omeprazole 40 mg capsule,delayed release(DR/EC) 40 ea PO DAILY cetirizine 10 mg tablet 10 ea PO DAILY prazosin 2 mg capsule 2 mg PO .HS Qty: 90 1RF venlafaxine 150 mg capsule,extended release 24hr 150 mg PO DAILY Qty: 90 1RF aripiprazole [Abilify] 10 mg tablet 10 mg PO DAILY Qty: 90 1RF propranolol 20 mg tablet 20 mg PO BID Qty: 180 0RF tolterodine 2 mg capsule,extended release 24hr 2 mg PO DAILY atorvastatin 40 mg tablet 40 mg PO QPM methenamine hippurate 1 gram tablet 1 g PO BID lidocaine 5 % adhesive patch,medicated 2 patch transdermal Q24H docusate sodium 100 mg Capsule 100 mg PO DAILY PRN (Reason: constipation ) diclofenac sodium 1 % gel 2 g TOPICAL QID vitamin D3-vitamin K2 125 mcg (5,000 unit)-100 mcg Capsule 1 cap PO DAILY ascorbic acid (vitamin C) [Vitamin C] 500 mg Tablet 500 mg PO DAILY Discharge Orders: Discharge Order (Routine); Ordered 08/07/24 Ordered By: Martin Lee Referrals: [facility] [Outside] Sobeida Painter MD [Staff Physician, Family Practice] Howard Foster DPM [Physician, Podiatry] - 1-3 days Discharge Diet: Cardiac Discharge Activity: Resume usual activity Patient Instructions: Opioid Safety, Pain Management, Patient Portal & Bautista Instructions Activity Restrictions/Additional Instructions: - Follow-up with Dr. Foster on Saturday - Dr. Foster is planning on doing surgery August 17 - Please use aspirin 81 mg for DVT prophylaxis Discharge Attestations Time Spent in Discharge Care*: greater than 30 min Quality Metrics Clinical Quality Measures [ No reported AMI, CVA or VTE this stay] Coding Level of Care Code 15698 Total time (in minutes) for Discharge: 45 Diagnoses Lisfranc fracture Morbid obesity due to excess calories E66.01 Mild intellectual disabilities F70 Constipation K59.00
[2024-08-07] MEDS: ibuprofen 200 mg Tablet 400 MG PO (17:16)
--- NOTE | 2024-08-07 18:45 | PC.NURSE ---
patient discharging with legal guardian to [facility] in private car has all belongings and paper work upon discharge to new facility. alert and oriented upon discharge.
== END 2024-08-07 18:45 | disposition skilled nursing facility (03) | DRG 563 ==
LOC: ER 20:55 → ER IP 21:31 → MEDSURG 08-05 11:17
PROVIDERS: Admitting Provider Internal Medicine; Emergency Provider Emergency Medicine; PCP Nurse Practitioner Family; Visit Provider Family Medicine
DX: S92.315A Nondisplaced fracture of first metatarsal bone, left foot, initial encounter for closed fracture (principal); Z68.43 Body mass index [BMI] 50.0-59.9, adult; S92.325A Nondisplaced fracture of second metatarsal bone, left foot, initial encounter for closed fracture; S92.345A Nondisplaced fracture of fourth metatarsal bone, left foot, initial encounter for closed fracture; S93.326A Dislocation of tarsometatarsal joint of unspecified foot, initial encounter; W01.0XXA Fall on same level from slipping, tripping and stumbling without subsequent striking against object, initial encounter; E66.01 Morbid (severe) obesity due to excess calories; F70 Mild intellectual disabilities; K59.00 Constipation, unspecified; F25.1 Schizoaffective disorder, depressive type; R25.1 Tremor, unspecified; Z66 Do not resuscitate; Z87.442 Personal history of urinary calculi
CPT/HCPCS: 29515; 36415; 73130; 73501; 73610; 73630; 73700; 80048; 80053; 84443; 85025; 85610; 96372; 97161; 97167; 97530; 99285; J1650; J9999

== ENCOUNTER → 2024-08-12 14:38 | Outpatient (BNVA) | payer OTHER, MEDICAID, SELFPAY | PROVIDERS: PCP Nurse Practitioner Family; Visit Provider Podiatrist Foot & Ankle Surgery | DX: Z01.818 Encounter for other preprocedural examination (principal); S93.322A Subluxation of tarsometatarsal joint of left foot, initial encounter; X58.XXXA Exposure to other specified factors, initial encounter | CPT/HCPCS: 99214 ==

== ENCOUNTER 2024-08-17 07:09 | Day surgery (SDC) | payer OTHER, MEDICAID, SELFPAY ==
[2024-08-17] VITALS (11 sets, daily range): BP systolic 108–137; BP diastolic 63–86; PULSE 71–80; RESP 10–23; TEMP 36.2–36.6; O2SAT 95–100; BMI 51.2
[2024-08-17] MEDS: acetaminophen 1,000 MG/100 ML PIGGYBACK 400 MG IV (07:52)
[2024-08-17] MEDS: midazolam 1 mg/mL INJ 2 mL 2 MG IVP (08:09)
--- NOTE | 2024-08-17 08:19 | PC.NURSE ---
Addendum entered by Shanell Kaur RN 08/17/24 08:27: Correct spelling, instead of Buprenorphine , it is BUPIVICAINE Original Note: Dr Schilling injected in left popliteal vein 30 mls 0.5% Buprenorphine and 4 mg Decadron. Pt tolerated well.
--- NOTE | 2024-08-17 08:21 | ANES.PREANE2 ---
Pre-Anesthetic Assessment Height/Weight: Height 1.57 m Weight 127.006 kg O2 Del Method Room Air 08/17/24 07:30 Preop Diagnosis: Left foot lisfranc fracture Operation Date: 08/17/24 08:50 Proposed Procedures p Arthrodesis MULTIPLE Tarsometatarsal Joint Arthrodesis 1 through 3 LEFT FOOT(Left) - Howard Foster DPM Familial anesthetic complications: none Was Beta Sridevi taken within 24 hours: N/A Was Clonidine taken within 24 hours: N/A Last intake: Intake Last Liquid Date 08/16/24 Last Liquid Time 20:00 Last Solid Date 08/16/24 Last Solid Time 17:30 Social No alcohol and No tobacco Exam alert, oriented x 3, clear to auscultation bilaterally and regular rate & rhythm Airway Mallampati: Class IV Dentition: full GI Gastroesophageal Reflux Disease Metabolic Morbid Obesity Anesthetic Plan ASA status: 3 Anesthesia: General and Regional (specify below) Risk of > 500 ml blood loss (7ml/kg in children): No Medications/Allergies Home Medications ?Medication ?Instructions ?Recorded ?Confirmed ?Last Taken ?Type cetirizine 10 mg tablet 10 ea PO DAILY 11/28/22 08/12/24 08/16/24 19:00 History omeprazole 40 mg capsule,delayed 40 ea PO DAILY 11/28/22 08/12/24 08/16/24 19:00 History release triamcinolone acetonide 0.1 % 0.1 g topical BID 11/28/22 08/12/24 08/16/24 19:00 History topical cream aripiprazole 10 mg tablet (Abilify) 10 mg PO DAILY #90 tabs 02/26/24 08/12/24 08/16/24 19:00 Rx prazosin 2 mg capsule 2 mg PO .HS #90 caps 02/26/24 08/12/24 08/16/24 19:00 Rx venlafaxine 150 mg 150 mg PO DAILY #90 caps 02/26/24 08/12/24 08/16/24 19:00 Rx capsule,extended release 24 hr propranolol 20 mg tablet 20 mg PO BID #180 tabs 06/24/24 08/12/24 08/16/24 19:00 Rx ascorbic acid (vitamin C) 500 mg 500 mg PO DAILY 08/05/24 08/12/24 08/16/24 19:00 History tablet (Vitamin C) atorvastatin 40 mg tablet 40 mg PO QPM 08/05/24 08/12/24 08/16/24 19:00 History diclofenac sodium 1 % topical gel 2 g topical QID 08/05/24 08/12/24 08/16/24 19:00 History docusate sodium 100 mg capsule 100 mg PO DAILY PRN constipation 08/05/24 08/12/24 08/16/24 19:00 History lidocaine 5 % topical patch 2 patch transdermal Q24H 08/05/24 08/12/24 08/16/24 19:00 History methenamine hippurate 1 gram tablet 1 g PO BID 08/05/24 08/12/24 08/16/24 19:00 History tolterodine 2 mg capsule,extended 2 mg PO DAILY 08/05/24 08/12/24 08/16/24 19:00 History release 24 hr vitamin D3 125 mcg (5,000 1 cap PO DAILY 08/05/24 08/12/24 08/16/24 19:00 History unit)-vitamin K2 100 mcg capsule aspirin 81 mg tablet 81 mg PO DAILY 30 days #30 tabs 08/07/24 08/12/24 08/16/24 19:00 Rx Allergies Allergy/AdvReac Type Severity Reaction Status Date / Time menthol (From Icy Hot) Allergy Rash Verified 08/17/24 07:44 methyl salicylate (From Icy Allergy Rash Verified 08/17/24 07:44 Hot) Penicillins Allergy Diarrhea, Verified 08/17/24 07:44 nausea, vomiting Sulfa (Sulfonamide Allergy Rash Verified 08/17/24 07:44 Antibiotics) Current Medications Generic Name Dose Route Start Last Admin Trade Name Freq PRN Reason Stop Dose Admin Sodium Chloride 1,000 mls @ 30 mls/hr 08/17/24 08:00 08/17/24 08:05 Sodium Chloride 0.9% IV 08/18/24 07:59 30 mls/hr .Q24H CELESTINE Administration Midazolam HCl 2 mg 08/17/24 07:50 08/17/24 08:09 Midazolam 1 Mg/Ml Inj 2 Ml IVP 2 mg Q5M PRN Administration Preop Anxiety PFSH Anesthesia Medical History Morbid obesity due to excess calories GERD (gastroesophageal reflux disease) Schizophrenia Depression On combination antipsychotic drug therapy Psychiatric care Other schizophrenia Mild intellectual disabilities Family History Sister Thyroid disease Denies family history of Colon cancer Ovarian cancer Diabetes Clotting disorder Heart disease Hyperlipidemia Breast cancer Anesthesia complication Bleeding disorder Hypertension Uterine cancer Stroke Social History Smoking and tobacco/nicotine status: never used tobacco/nicotine Alcohol intake: never Substance/Drug Use: never Additional social history: Patient graduated from high school but states she took special-education classes. She states she wants DNR status as discussed today with Vickey Sky MD on 08/04/2024 Number of children: 1 Anesthesia Procedures Nerve Block Nerve Block 1: Main Anesthesia: general anesthesia Time Out Performed: Yes Consent: requested by attending/covering physician, from patient, from other, risks and benefits reviewed and patient agrees to proceed Nerve block location: popliteal (L) Intraoral Nerve Block: supraperiosteal Anesthesia monitors applied: pulse oximetry, EKG, BP cuff and oxygen Nerve block position: supine Anesthetic Used: ropivicaine 0.5% (30 ml) and with decadron (4 mg) Ultrasound used to: recognize landmarks Nerve Stimulator Used?: No Interscalene/Femoral BLK: 4 stimuplex 21 g needle used for position and inplane approach, visualize local anesthetic spread and no vascular puncture identified Injection: neg aspiration of heme Patient Tolerated Procedure: well Complications: none
--- NOTE | 2024-08-17 08:57 | PC.NURSE ---
Verbal correction from Dr Arellano that she used Ropivacaine instead of Bupivicaine
--- NOTE | 2024-08-17 09:05 | P.HPUD_ITS ---
Surgery/Procedure H&P Update DATE OF PROCEDURE: August 17, 2024 DATE H&P PERFORMED: 08/12/24 H&P UPDATE INFORMATION: I have reviewed H&P completed within last 30 days, I have examined patient prior to procedure, No changes to prior documentation, H&P is in [facility] EMR on date indicated and Risks and benefits of the procedure reviewed PREOP DIAGNOSIS: Left foot lisfranc fracture PLANNED PROCEDURE: Operation Date: 08/17/24 08:50 Proposed Procedures p Arthrodesis MULTIPLE Tarsometatarsal Joint Arthrodesis 1 through 3 LEFT FOOT(Left) - Howard Foster DPM
--- NOTE | 2024-08-17 11:28 | P.OP_ITS ---
Operative Report Date of procedure: August 17, 2024 Surgeon: Howard Foster DPM Procedure: Date of procedure: 08/17/2024 Pre-op diagnosis: Left foot Lisfranc fracture dislocation Post-op diagnosis: Same Post-op findings: Left foot Lisfranc fracture dislocation Procedure done: Arthrodesis of first, second, third tarsometatarsal joints left foot CPT 28717 Implants: Nitinol staple x 4 from [employer] Specimens removed: None Surgeon: Dr. Howard Foster DPM Information Systems Audit Manager: Ricardo Estimated blood loss: 10 cc Tourniquet time: 83 minutes Complications: None Patient is a 59-year-old female that has a history of left foot Lisfranc fractu re dislocation. The patient has had the aforementioned chief complaint for some time. Conservative treatment measures have been attempted and the patient has opted for surgical intervention at this time. A lengthy discussion regarding the procedure, including risks and complications has been had with the patient and is noted in the recent clinic note. Written and verbal consent have been obtained. All patient questions have been answered to the patient?s satisfaction. No written or verbal guarantees have been given or implied. The patient has been NPO since midnight. The history has been reviewed and the history and physical is current. The signed consent was confirmed and placed in the patient chart. Patient imaging has been reviewed and is consistent with the diagnosis. Under mild sedation, the patient was brought into the operating room and placed on the table in the supine position. IV antibiotics were given by the anesthesia team as preoperative surgical prophylaxis. General sedation was then performed by the anesthesiateam. A pneumatic tourniquet was then placed about the left ankle. A popliteal block was performed by the anesthesia department. The operative extremity was then prepped and draped in the usual fashion. The extremity was then elevated and exsanguinated before the tourniquet was inflated to 250 mmHg. After inflation, the following procedure was then performed. Attention was directed to the medial aspect of the first tarsometatarsal joint where a 7 cm incision was made using a #15 blade. Dissection was carried down through subcutaneous the superficial fascia to the level of the first tarsometatarsal joint which was exposed. Sagittal bone saw was used to resect the articular cartilage from first tarsometatarsal joint. After resection of articular cartilage K wire was used to fenestrate the arthrodesis site. The first tarsometatarsal joint was aligned to appropriate anatomic position before 2 nitinol sarahy were placed over the first tarsometatarsal joint. Good compression was noted across the joint. Attention was then directed to the dorsal aspect of the left foot where a 7 cm incision is made over the 2nd and 3rd tarsometatarsal joint interval. Dissection was carried down through subcutaneous superficial fascia to the level of the second tarsometatarsal joint. Care was taken to preserve adjacent neurovascular structures. Bur was inserted into the second tarsometatarsal joint to remove articular cartilage. Site was irrigated with saline before being fenestrated. Nitinol staple was placed over the second tarsometatarsal joint. The third tarsometatarsal joint was then visualized and dissected. There was a significant amount of comminution at the third tarsometatarsal arthrodesis site. This was prepped using a rongeur. A larger nitinol staple was used to span the comminution. Good positioning of sarahy was noted clinically as well as on C- arm imaging. All incisions were irrigated with copious amounts of sterile saline before attention was directed to closure. Deep tissue was closed with 3- 0 Vicryl followed by subcuticular closure with 4-0 Vicryl and skin closure with 4-0 nylon in horizontal mattress fashion. The tourniquet was let down good hyperemic response was noted to left foot. Incision site was dressed with Xeroform, 4 x 4 gauze, Kerlix, Kvng before patient was placed in a cam boot. The patient tolerated the procedure and anesthesia well and without complication. The patient was transported from the operating room to the recovery room with vital signs stable and vascular status intact to all digits of the left foot. The patient was given both written and verbal instructions to remain nonweightbearing to the operative extremity, to keep dressings/splint clean, dry and intact and to take pain medication as directed. The patient will follow-up in the outpatient setting at their scheduled appointment. The patient was discharged with my personal number and was instructed to call if any questions or issues should arise. They were discharged home once anesthesia criteria was met.
--- NOTE | 2024-08-17 12:40 | ANE.PACU2 ---
Inpatient post-anesthesia follow up: Airway intact: Yes Vital signs: Temperature 97.2 F Pulse Rate 76 Respiratory Rate 18 Blood Pressure 119/86 Pulse Oximetry 97 Oxygen Delivery Me thod Room Air Oxygen Flow Rate 2 Fraction of Inspir ed Oxygen Hydration adequate: Yes Nausea and vomiting: No Pain level: 1 Mental status: Baseline
== END 2024-08-17 12:40 | disposition home or self-care (01) ==
PROVIDERS: PCP Nurse Practitioner Family; Visit Provider Podiatrist Foot & Ankle Surgery
PROC: (CPT 28740; principal; 2024-08-17 08:40)
DX: S92.812A Other fracture of left foot, initial encounter for closed fracture (principal); X58.XXXA Exposure to other specified factors, initial encounter; K21.9 Gastro-esophageal reflux disease without esophagitis; E66.01 Morbid (severe) obesity due to excess calories; Z68.43 Body mass index [BMI] 50.0-59.9, adult; Z79.82 Long term (current) use of aspirin; F20.9 Schizophrenia, unspecified; F32.A Depression, unspecified
CPT/HCPCS: 28730; 73630; 76000; C1713; J0131; J0330; J1100; J2250; J2371; J2405; J2704; J2795; J3010; J3490; J7030; J9999

== ENCOUNTER → 2024-08-31 15:17 | Outpatient (BNVA) | payer OTHER, MEDICAID, SELFPAY | PROVIDERS: PCP Nurse Practitioner Family; Visit Provider Podiatrist Foot & Ankle Surgery | DX: Z98.890 Other specified postprocedural states (principal); S93.322D Subluxation of tarsometatarsal joint of left foot, subsequent encounter; X58.XXXD Exposure to other specified factors, subsequent encounter | CPT/HCPCS: 73630; 99024 ==

== ENCOUNTER → 2024-09-14 15:23 | Outpatient (BNVA) | payer OTHER, MEDICAID, SELFPAY | PROVIDERS: PCP Nurse Practitioner Family; Visit Provider Podiatrist Foot & Ankle Surgery | DX: Z89.432 Acquired absence of left foot (principal); S93.322D Subluxation of tarsometatarsal joint of left foot, subsequent encounter; X58.XXXD Exposure to other specified factors, subsequent encounter | CPT/HCPCS: 73630; 99024 ==

== ENCOUNTER → 2024-09-28 13:31 | Outpatient (BNVA) | payer OTHER, MEDICAID, SELFPAY | PROVIDERS: PCP Nurse Practitioner Family; Visit Provider Podiatrist Foot & Ankle Surgery | DX: S93.322D Subluxation of tarsometatarsal joint of left foot, subsequent encounter (principal); X58.XXXD Exposure to other specified factors, subsequent encounter | CPT/HCPCS: 73630; 99024 ==

== ENCOUNTER → 2024-10-13 15:30 | Outpatient (BNVA) | payer OTHER, MEDICAID, SELFPAY | PROVIDERS: PCP Nurse Practitioner Family; Visit Provider Podiatrist Foot & Ankle Surgery | DX: Z98.890 Other specified postprocedural states (principal); S93.322D Subluxation of tarsometatarsal joint of left foot, subsequent encounter; X58.XXXD Exposure to other specified factors, subsequent encounter | CPT/HCPCS: 73630; 99024 ==